=== PATIENT | female | born 1945 | race Caucasian/White ===

== ENCOUNTER 2020-02-12 10:22 | Emergency (ER) | payer MEDICARE, SELFPAY ==
[2020-02-12 10:35] VITALS: BP 150/68; PULSE 75; RESP 16; TEMP 36.1; O2SAT 98
--- NOTE | 2020-02-12 10:45 | ED.URI ---
HPI - URI/Sore Throat General Chief Complaint: Upper Respiratory Infection Stated Complaint: sore throat History of Present Illness HPI Narrative: Patient was put on Augmenting two weeks ago for a sore throat. Patient states that two days after her medication was over she started to have a sore throat again and she was wandering if she needed another dose. Patient has not had a fever, nausea, vomiting. Related Data Home Medications Medication Instructions Recorded Confirmed alcohol swabs See Rx Instructions .ROUTE .COMPLEX 11/19/19 ascorbic acid (vitamin C) 500 mg 500 mg PO DAILY 11/19/19 tablet aspirin 81 mg tablet,delayed 81 mg PO DAILY 11/19/19 release blood sugar diagnostic #10 each 11/19/19 calcium carbonate 600 mg calcium 600 mg PO DAILY 11/19/19 (1,500 mg) tablet cholecalciferol (vitamin D3) 125 5,000 unit PO DAILY 11/19/19 mcg (5,000 unit) tablet docusate sodium 100 mg capsule 100 mg PO .COMPLEX 11/19/19 docusate sodium 100 mg capsule 100 mg PO .COMPLEX PRN 11/19/19 glipizide 10 mg tablet, extended 10 mg PO BID 11/19/19 release 24 hr krill 300 mg-omega 3 90 mg-dha 24 1 cap PO DAILY 11/19/19 mg-epa 50 [id number]-bxajs capsule lancets #50 each 11/19/19 loratadine 10 mg tablet 10 mg PO DAILY 11/19/19 metoprolol succinate 25 mg 25 mg PO DAILY 11/19/19 tablet,extended release 24 hr nortriptyline 50 mg capsule 50 mg PO DAILY 11/19/19 oxybutynin chloride 5 mg tablet 5 mg PO DAILY 11/19/19 sertraline 100 mg tablet 100 mg PO DAILY 11/19/19 vitamin B12 1,000 mcg-folic acid tablet SUBLINGUAL DAILY tablet 11/19/19 400 mcg sublingual tablet insulin glargine 100 unit/mL See Rx Instructions SUB-Q .COMPLEX 12/21/19 subcutaneous solution ml Allergies Allergy/AdvReac Type Severity Reaction Status Date / Time No Known Allergies Allergy Unverified 07/10/19 07:18 Review of Systems Review of Systems: Narrative: CONSTITUTIONAL: Denies fever, chills, or sweats. EYES: Denies visual changes, redness, or discharge. ENT: Denies rhinorrhea, congestion, sore throat, or reports otalgia. CARDIOVASCULAR:Denies chest pain, palpitations, or edema. RESPIRATORY: Denies cough or dyspnea. GASTROINTESTINAL: Denies abdominal pain, nausea, vomiting, or diarrhea. GENITOURINARY: Denies dysuria or hematuria. SKIN:[Denies rash or itching. MUSCULOSKELETAL:Denies back pain, joint pain, or myalgia. NEUROLOGIC: Denies headache, numbness, or weakness. PSYCHIATRIC:Denies anxiety or depression PMFSH Social History Social History Smoking status: Former smoker Smoking end date: 10/28/92 Alcohol intake: never Comments At time as signature, I have reviewed and agree with nursing past medical, social, surgical and family history. Please see nursing chart for further information. There is no relevant family history pertinent to the presenting complaint. Exam Narrative: Exam Narrative: GENERAL:Well-appearing, well-nourished, and in no acute distress. HEAD:Normocephalic, atraumatic. EYES: PERRLA and EOMI. ENT: Nares clear, no rhinorrhea or epistaxis. Mucous membranes moist. Pharyngeal erythema NECK: Supple. CHEST: Clear to auscultation. No respiratory distress. HEART: Regular rate and rhythm. No murmur heard. Normal peripheral pulses. ABDOMEN: Soft, nontender, nondistended, normal active bowel sounds. EXTREMITIES: Normal range of motion. No edema. SKIN: Warm, dry, no rash. NEURO: No focal deficits. Alert and oriented x3. 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 Larson [facility] and informed them she is back with a sore throat , Informed them I would order antihistamines and send off a strep culture if it came back we would order antibiotics unless they thought she needed antibiotics for any reason . Vital Signs Vital signs: Vital Signs Temperature 96.9 F L 02/12/20 10:35 Pulse Rate 75 02/12/20 10:35 Respiratory Rate 16 02/11
== END 2020-02-12 11:11 | disposition home or self-care (01) ==
PROVIDERS: Emergency Provider Nurse Practitioner Family; PCP Emergency Medicine
DX: J02.9 Acute pharyngitis, unspecified (principal); Z87.891 Personal history of nicotine dependence; E11.9 Type 2 diabetes mellitus without complications; E78.00 Pure hypercholesterolemia, unspecified; Z79.82 Long term (current) use of aspirin; Z79.84 Long term (current) use of oral hypoglycemic drugs; Z79.4 Long term (current) use of insulin
CPT/HCPCS: 87081; 87880; 99213; G0463

== ENCOUNTER 2020-11-17 10:08 | Outpatient (CLI) | payer MEDICARE, SELFPAY ==
--- NOTE | ~2020-11-17 | US_ITS ---
EXAMINATION: US renal BI DATE: 11/17/2020 10:40 INDICATION: Stage III chronic kidney disease. TECHNIQUE: Multiple ultrasound grayscale images of the kidneys were obtained. COMPARISON: CT dated 12/11/2018 FINDINGS: The right kidney measures 9.7 x 3.9 x 4.6 cm. The left kidney measures 9.6 x 4.3 x 4.4 cm. The kidney s demonstrate normal echogenicity. There is no hydronephrosis in either kidney. No stones identified . The bladder is normal. IMPRESSION: 1. Normal kidneys without hydronephrosis. Reviewed, dictated and finalized at location A. 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
== END 2020-11-17 10:09 | disposition home or self-care (01) ==
PROVIDERS: PCP Emergency Medicine; Visit Provider Internal Medicine Nephrology
DX: N18.32 Chronic kidney disease, stage 3b (principal); E11.29 Type 2 diabetes mellitus with other diabetic kidney complication; I12.9 Hypertensive chronic kidney disease with stage 1 through stage 4 chronic kidney disease, or unspecified chronic kidney disease
CPT/HCPCS: 76775

== ENCOUNTER 2021-12-07 07:16 | Outpatient (CLI) | payer OTHER, SELFPAY ==
--- NOTE | ~2021-12-07 | MM_ITS ---
EXAMINATION: MM screening [facility] BI w arpita HISTORY: Screening mammogram TECHNIQUE: Craniocaudal and mediolateral oblique 3-D tomosynthesis images were obtained and synthetic 2-D images were generated. CAD analysis was submitted and interpreted. COMPARISON: 05/14/2017, 09/20/2010 BREAST PARENCHYMAL COMPOSITION: There are scattered areas of fibroglandular density. FINDINGS: Scattered benign-appearing calcifications are present. There is no evidence of suspicious m ass, calcification, or architectural distortion to suggest malignancy in either breast. There has bee n no suspicious interval change. IMPRESSION: 1. No mammographic evidence of malignancy. 2. Recommend routine screening mammography in one year. BI-RADS Category 2: Benign finding(s). Reviewed, dictated and finalized at location A. 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
== END 2021-12-07 07:17 | disposition home or self-care (01) ==
LOC: ANHIMG 07:19
PROVIDERS: PCP Emergency Medicine; Visit Provider Emergency Medicine
DX: Z12.31 Encounter for screening mammogram for malignant neoplasm of breast (principal)
CPT/HCPCS: 77063; 77067

== ENCOUNTER 2022-05-10 14:29 | Outpatient (CLI) | payer OTHER, SELFPAY ==
--- NOTE | ~2022-05-10 | CT_ITS ---
EXAMINATION: CT sinus wo con DATE: 05/10/2022 14:47 INDICATION: Chronic sinusitis. TECHNIQUE: Computed tomography (CT) of the paranasal sinuses was performed without intravenous contra st. The dose-length product was 278.92 mGy-cm. Automated exposure control and iterative reconstructio n technique were employed. COMPARISON: CT dated 12/02/2015 FINDINGS: Paranasal sinuses and mastoids are pneumatized. No depressed skull fractures. No significan t mucosal thickening. No air-fluid levels. No mucoperiosteal reaction. Ostiomeatal units are patent. Rightward nasal septal deviation. IMPRESSION: 1. No significant abnormality of the paranasal sinuses. Reviewed, dictated and finalized at location A.
== END 2022-05-10 14:30 | disposition home or self-care (01) ==
PROVIDERS: PCP Emergency Medicine; Visit Provider Emergency Medicine
DX: H91.90 Unspecified hearing loss, unspecified ear (principal); J32.9 Chronic sinusitis, unspecified; R09.81 Nasal congestion
CPT/HCPCS: 70486

== ENCOUNTER 2022-07-03 10:12 | Emergency (ER) | payer OTHER, SELFPAY ==
[2022-07-03] VITALS (7 sets, daily range): BP systolic 111–147; BP diastolic 45–68; PULSE 62–70; RESP 14–19; TEMP 36.5; O2SAT 99–100
[2022-07-03 10:54] LABS: Basophils Percent Auto 0.3 % (0.2-1.2); Eosinophils Absolute Auto 0.2 K/mm3 (0-0.3); Eosinophils Percent Auto 4.2 % (0-4.4); Hematocrit 38.5 % (37.0-47.0); Hemoglobin 12.7 g/dL (12.0-15.0); Immature Granulocyte Absolute 0.01 K/mm3 (0.00-0.031); Immature Granulocyte Percent A 0.3 % (0-0.5); Immature Platelet Fraction Pct 3.2 % (0.9-11.2); Lymphocytes Absolute Auto 0.88 K/mm3 (0.9-3.2); Lymphocytes Percent Auto 24.5 % (18.3-44.2); Mean Corpuscular Hemoglobin 30.7 pg (26-34); Mean Platelet Volume 10.4 fl (7.4-10.4); Monocytes Absolute Auto 0.4 K/mm3 (0.1-0.6); Monocytes Percent Auto 10.6 % (2.6-8.5); Neutrophils Absolute Auto 2.2 K/mm3 (1.3-6.7); Neutrophils Percent Auto 60.1 % (45.5-73.1); Platelet Count Result 85 k/mm3 (150-375); Red Blood Count 4.14 M/mm3 (4.2-5.4); Red Cell Distribution Width 14.6 % (11.5-14.5); White Blood Count 3.6 K/mm3 (4.5-10.0)
[2022-07-03 10:58] LABS: Alanine Aminotransferase 12 U/L (6-35); Alkaline Phosphatase 77 U/L (38-126); Anion Gap 17 mmol/L (8-16); Aspartate Amino Transferase 25 U/L (14-36); Bilirubin,Total 0.3 mg/dL (0.2-1.3); Blood Urea Nitrogen 23 mg/dL (7-17); Calcium 8.3 mg/dL (8.4-10.2); Carbon Dioxide 22 mmol/L (22-30); Chloride 104 mmol/L (98-107); Estimated CRCL calculation 27 ml/min; Estimated Glomerular Filt Rate 34; Glucose 174 mg/dL (65-110); Lipase 76 U/L (23-300); Potassium 3.5 mmol/L (3.4-5.0); Sodium 143 mmol/L (137-145)
--- NOTE | 2022-07-03 12:10 | PC.NURSE ---
Pt. not in room, unable to start IV, get urine or obtain orthostat VS
--- NOTE | 2022-07-03 12:49 | ED.GENADULT ---
HPI - General Adult General Chief complaint: Nausea/Vomiting/Diarrhea Stated complaint: dehydrated for 8 days?? Time Seen by Provider: 07/03/22 11:59 History of Present Illness HPI narrative: 36-year-old female presented the emergency department for evaluation of 8 days of diarrhea and her primary care physician was concerned that she may have some dehydration. Patient states that she has had some rolling abdomen but denies any pain. Patient denies any blood in her stool. Patient denies any associated nausea or vomiting. Patient states she has not had any fevers Related Data Home Medications Medication Instructions Recorded Confirmed alcohol swabs See Rx Instructions .Route .COMPLEX 11/19/19 11/28/21 ascorbic acid (vitamin C) 500 mg 500 mg PO DAILY 11/19/19 11/28/21 tablet (Vitamin C) calcium carbonate 600 mg calcium 600 mg PO DAILY 11/19/19 11/28/21 (1,500 mg) tablet (Calcium) krill 300 mg-omega 3 90 mg-dha 24 1 cap PO DAILY 11/19/19 11/28/21 mg-epa 50 [id number] capsule (MegaRed [place]-3 Krill Oil) metoprolol succinate 25 mg 25 mg PO DAILY 11/19/19 11/28/21 tablet,extended release 24 hr sertraline 100 mg tablet 100 mg PO DAILY 11/19/19 11/28/21 vitamin B12 1,000 mcg-folic acid tablet sublingual DAILY 11/19/19 11/28/21 400 mcg sublingual tablet aspirin 81 mg tablet,delayed 81 mg PO BID 07/06/20 11/28/21 release cholecalciferol (vitamin D3) 50 50 mcg PO DAILY 01/13/21 11/28/21 mcg (2,000 unit) capsule simvastatin 40 mg tablet 40 mg PO .COMPLEX 01/13/21 11/28/21 Allergies Allergy/AdvReac Type Severity Reaction Status Date / Time No Known Allergies Allergy Verified 06/19/22 09:44 Review of Systems Review of Systems: CONSTITUTIONAL: Denies fever, chills, or sweats. EYES: Denies visual changes, redness, or discharge. ENT: Denies rhinorrhea, congestion, sore throat, or otalgia. CARDIOVASCULAR: Denies chest pain, palpitations, or edema. RESPIRATORY: Denies cough or dyspnea. GASTROINTESTINAL: See HPI GENITOURINARY: Denies dysuria or hematuria. SKIN: Denies rash or itching. MUSCULOSKELETAL: Denies back pain, joint pain, or myalgia. NEUROLOGIC: Denies headache, numbness, or weakness. [facility] Past Medical History Medical History Acute UTI ASHD (arteriosclerotic heart disease) Bilateral carotid bruits Body mass index [BMI] 28.0-28.9, adult (12/18/16) Body mass index [BMI] 29.0-29.9, adult (06/18/16) Body mass index [BMI] 30.0-30.9, adult (12/15/15) Body mass index [BMI] 31.0-31.9, adult (01/06/18) Cellulitis of upper extremity Cerebellar dysfunction Closed fracture of ramus of right pubis with routine healing Closed fracture of right pubis Constipation COPD mixed type Diastolic dysfunction Dysarthria Dysuria Falls frequently Hematuria HTN (hypertension) Hx of falling Left leg weakness Multiple thyroid nodules Nausea Neuropathy Post menopausal problems Stenosis of left carotid artery Urinary incontinence in female UTI symptoms Family History Family History Sibling Family history of cardiovascular disease Social History Social History Social History: Patient does not drinks caffeine or exercise. Smoking status: Former smoker Tobacco type: cigarettes Second hand tobacco smoke exposure: Yes Smoking end date: 10/28/96 Alcohol intake: never Substance use: never Substance use type: does not use Gender identity (if verbalized by the patient): Female Exam Narrative: APPEARANCE: Well appearing, no pain, no distress, well-nourished. HEAD: normocephalic, atraumatic. EYES: PERRLA/EOMI, conjunctivae clear. NOSE: Normal no drainage NECK: Supple. No adenopathy, no masses. RESPIRATORY: Airway patent, respirations nonlabored. Clear to auscultation bilaterally, no rales, rhonchi, wheezing. CARDIOV
[2022-07-03] MEDS: SODIUM CHLORIDE 0.9% IV 1,000 ML 500 ML IV CONT (12:51)
[2022-07-03 14:09] LABS: Appearance Urine Slightly Cloudy (Clear); Bilirubin Urine Negative (Negative); Blood Urine Trace-lysed (Negative); Glucose Urine UA 2+ mg/dL (Negative); Ketones Urine Negative (Negative); Leukocyte Esterase Ur 1+ LEU/UL (Negative); Nitrate Urine Negative (Negative); Protein Urine Negative (Negative); Urobilinogen Urine 0.2 mg/dL (<2.0); pH Urine 5.5 (5.0-9.0)
[2022-07-03 14:15] LABS: Add Urine Microscopic? YES; Color Urine Light Yellow (Yellow)
[2022-07-03 14:26] LABS: Bacteria Urine Trace /hpf; Squamous Epithelial Cell Urine Few /hpf (Few)
[2022-07-03 16:07] LABS: Glucose Point of Care 54 mg/dl (65-105)
--- NOTE | 2022-07-03 16:13 | PC.NURSE ---
Pt asked MD if she could get her blood sugar checked. Sugar was 54. 8 ounces of orange juice given to pt.
[2022-07-03 16:39] LABS: Glucose Point of Care 103 mg/dl (65-105)
== END 2022-07-03 16:52 | disposition home or self-care (01) ==
PROVIDERS: Emergency Provider Emergency Medicine; PCP Emergency Medicine
DX: E86.0 Dehydration (principal); R19.7 Diarrhea, unspecified; I25.10 Atherosclerotic heart disease of native coronary artery without angina pectoris; I65.22 Occlusion and stenosis of left carotid artery; I10 Essential (primary) hypertension; J44.9 Chronic obstructive pulmonary disease, unspecified; E11.40 Type 2 diabetes mellitus with diabetic neuropathy, unspecified; Z87.891 Personal history of nicotine dependence; Z79.84 Long term (current) use of oral hypoglycemic drugs; Z79.4 Long term (current) use of insulin; Z79.82 Long term (current) use of aspirin
CPT/HCPCS: 36415; 80053; 81001; 82948; 83690; 85025; 85055; 96360; 96361; 99283; J7030

== ENCOUNTER 2022-07-29 14:38 | Emergency (ER) | payer OTHER, SELFPAY ==
--- NOTE | ~2022-07-29 | CT_ITS ---
EXAMINATION: CT brain wo con DATE: 07/29/2022 15:47 INDICATION: fall, hit head, on Plavix . TECHNIQUE: Computed tomography (CT) of the head was performed without intravenous contrast. The mA wa s adjusted according to patient size. Iterative reconstruction technique was employed. The dose-lengt h product was 605.33 mGy-cm. COMPARISON: None FINDINGS: No acute intracranial hemorrhage or extra-axial fluid collection. No hydrocephalus, mass, or herniation. No acute ischemic infarct. Unremarkable dural venous sinus attenuation. No acute osseous abnormality. Left frontal scalp contusion. Small inferior left mastoid effusion with osseous sclerosis, as can be seen with chronic/remote masto iditis. The remaining aerated spaces are clear. Mild atrophy and chronic white matter change. Bilateral basal ganglia calcification. Atherosclerotic intracranial calcification. IMPRESSION: No acute intracranial process. Reviewed, dictated and finalized at location K.
--- NOTE | ~2022-07-29 | CT_ITS ---
EXAMINATION: CT abdomen pelvis wo con DATE: 07/29/2022 16:10 INDICATION: hematuria after fall TECHNIQUE: Computed tomography (CT) of the abdomen and pelvis was performed without intravenous contr ast. Automated exposure control and iterative reconstruction technique were employed. The dose-length product was 946.71 mGy-cm. COMPARISON: 12/11/2018. FINDINGS: Lower thorax: Mitral annulus calcification. Coronary artery calcification. Possible coronary artery s tents. Bibasilar scar/atelectasis. Liver: Normal. Biliary/Gallbladder: Gallbladder hydrops, similar to the prior study. Gallbladder lumen filled by hyp erdense material as well as multiple gallstones, unchanged. No bile duct dilation. Pancreas: Atrophic. Spleen: Normal. Adrenals:No mass. Kidneys: No mass, stone, or hydronephrosis. GI tract: No small or large bowel dilation. Normal appendix. Mesentery/Peritoneum: No ascites, mass, or free air. Retroperitoneum: No mass. Atherosclerotic abdominal aortic and/or arterial calcifications. Pelvis: Large uterine fibroid, now measuring 11.2 cm. The remaining pelvic organs are within normal l imits. Soft Tissues: Soft tissues and body wall unremarkable. Bones: No acute osseous finding. Old compression fractures at T12 and L1. IMPRESSION: No acute abdominopelvic process detected. Evaluation for solid organ or vascular injury is limited wi thout the use of contrast. Reviewed, dictated and finalized at location K. IMPRESSION: No acute abdominopelvic process detected. Evaluation for solid organ or vascula r injury is limited without the use of contrast.
--- NOTE | ~2022-07-29 | XR_ITS ---
EXAM: XR shoulder LT min 2V, XR humerus LT DATE: 07/29/2022 15:26 HISTORY: left shoulder pain; fall today . COMPARISON: None available. FINDINGS: Decreased mineralization. Spiral fracture of the left humeral midshaft, with one half shaf t width posterior displacement, 30 degrees posterior angulation. Mild-moderate height loss in a lower thoracic vertebral body, possibly T12. Proximal humeral bone island. Mild degenerative change in the acromioclavicular and glenohumeral joints. No erosion or periosteal change. Soft tissues within norm al limits. IMPRESSION: Angulated and mildly displaced spiral fracture of the left humeral midshaft. Acute versus chronic lower thoracic vertebral body compression fracture, correlate with point tenderness. Reviewed, dictated and finalized at location K. IMPRESSION: Angulated and mildly displaced spiral fracture of the left humeral midshaft. Acute versus chronic lower thoracic vertebral body compression fractu re, correlate with point tenderness.
--- NOTE | ~2022-07-29 | XR_ITS ---
EXAM: XR knee RT 3V, XR knee LT 3V DATE: 07/29/2022 16:26 (accession [id number]), 07/29/2022 16:25 (accession [id number]) HISTORY: knee injury;fell today, abrasions ant bilat knees . COMPARISON: None available. FINDINGS: Decreased mineralization. No fracture or dislocation. No lytic or blastic lesion. 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 Bilateral quadriceps and plantar enthesopathy. No erosion or periosteal change. Bilateral prepatellar soft tissue swelling. Vascular calcifications. IMPRESSION: No acute osseous finding in the knees. Bilateral prepatellar soft tissue swelling/bursiti s. Reviewed, dictated and finalized at location K. IMPRESSION: No acute osseous finding in the knees. Bilateral prepatellar soft t issue swelling/bursitis.
[2022-07-29 14:53] VITALS: BP 155/71; PULSE 88; RESP 16; TEMP 36.9; O2SAT 98
--- NOTE | 2022-07-29 15:03 | ED.GENADULT ---
HPI - General Adult General Chief complaint: Fall Stated complaint: GLF with injuries Time Seen by Provider: 07/29/22 14:54 History of Present Illness HPI narrative: 76-year-old female presenting to the emergency department for evaluation after having a head injury. Patient reports she was at a football game attempting to walk to the bathroom when she fell and struck her head on a metal door. Patient denies loss of consciousness. Patient did receive a hematoma on her left forehead. Patient did injure her left arm as well. Patient reports pain in the left elbow and pain in the left shoulder. Patient does take Plavix. Related Data Home Medications Medication Instructions Recorded Confirmed alcohol swabs See Rx Instructions .Route .COMPLEX 11/19/19 11/28/21 ascorbic acid (vitamin C) 500 mg 500 mg PO DAILY 11/19/19 11/28/21 tablet (Vitamin C) calcium carbonate 600 mg calcium 600 mg PO DAILY 11/19/19 11/28/21 (1,500 mg) tablet (Calcium) krill 300 mg-omega 3 90 mg-dha 24 1 cap PO DAILY 11/19/19 11/28/21 mg-epa 50 [id number]-mzzzy capsule (MegaRed [place]-3 Krill Oil) metoprolol succinate 25 mg 25 mg PO DAILY 11/19/19 11/28/21 tablet,extended release 24 hr sertraline 100 mg tablet 100 mg PO DAILY 11/19/19 11/28/21 vitamin B12 1,000 mcg-folic acid tablet sublingual DAILY 11/19/19 11/28/21 400 mcg sublingual tablet aspirin 81 mg tablet,delayed 81 mg PO BID 07/06/20 11/28/21 release cholecalciferol (vitamin D3) 50 50 mcg PO DAILY 01/13/21 11/28/21 mcg (2,000 unit) capsule simvastatin 40 mg tablet 40 mg PO .COMPLEX 01/13/21 11/28/21 Allergies Allergy/AdvReac Type Severity Reaction Status Date / Time No Known Allergies Allergy Verified 07/29/22 15:16 Review of Systems Review of Systems: CONSTITUTIONAL: Denies fever, chills, or sweats. EYES: Denies visual changes, redness, or discharge. ENT: Denies rhinorrhea, congestion, sore throat, or otalgia. CARDIOVASCULAR: Denies chest pain, palpitations, or edema. RESPIRATORY: Denies cough or dyspnea. GASTROINTESTINAL: Denies abdominal pain, nausea, vomiting, or diarrhea. GENITOURINARY: Denies dysuria or hematuria. SKIN: Left forehead hematoma MUSCULOSKELETAL: See HPI. Denies any other pain or injury. NEUROLOGIC: Denies headache, numbness, or weakness. [facility] Past Medical History Medical History Acute UTI ASHD (arteriosclerotic heart disease) Bilateral carotid bruits Body mass index [BMI] 28.0-28.9, adult (12/18/16) Body mass index [BMI] 29.0-29.9, adult (06/18/16) Body mass index [BMI] 30.0-30.9, adult (12/15/15) Body mass index [BMI] 31.0-31.9, adult (01/06/18) Cellulitis of upper extremity Cerebellar dysfunction Closed fracture of ramus of right pubis with routine healing Closed fracture of right pubis Constipation COPD mixed type Diastolic dysfunction Dysarthria Dysuria Falls frequently Hematuria HTN (hypertension) Hx of falling Left leg weakness Multiple thyroid nodules Nausea Neuropathy Post menopausal problems Stenosis of left carotid artery Urinary incontinence in female UTI symptoms Family History Family History Sibling Family history of cardiovascular disease Social History Social History Social History: Patient does not drinks caffeine or exercise. Smoking status: Former smoker Tobacco type: cigarettes Second hand tobacco smoke exposure: Yes Smoking end date: 10/28/96 Alcohol intake: never Substance use: never Substance use type: does not use Gender identity (if verbalized by the patient): Female Exam Narrative: APPEARANCE: Well appearing, no pain, no distress, well-nourished. HEAD: normocephalic, hematoma with overlying abrasion on left forehead EYES: PERRLA/EOMI, conjunctivae clear. NOSE: Normal no drainage EARS:TMS clear with good
[2022-07-29] MEDS: MORPHINE SULFATE (*CRX) 2 MG/ML INJ IV PUSH (15:30)
[2022-07-29] MEDS: ONDANSETRON INJ 4 MG/2 ML VIAL IV PUSH (17:51)
[2022-07-29] MEDS: HYDROcodone/acetaminophen (*CRX) 5-325 MG TABLET 1 TAB PO (18:18)
== END 2022-07-29 18:58 | disposition home or self-care (01) ==
PROVIDERS: Emergency Provider Emergency Medicine; PCP Emergency Medicine
DX: S00.83XA Contusion of other part of head, initial encounter (principal); S42.342A Displaced spiral fracture of shaft of humerus, left arm, initial encounter for closed fracture; S80.02XA Contusion of left knee, initial encounter; S80.01XA Contusion of right knee, initial encounter; J44.9 Chronic obstructive pulmonary disease, unspecified; I25.10 Atherosclerotic heart disease of native coronary artery without angina pectoris; I10 Essential (primary) hypertension; I65.22 Occlusion and stenosis of left carotid artery; G62.9 Polyneuropathy, unspecified; Z87.440 Personal history of urinary (tract) infections; Z87.891 Personal history of nicotine dependence; Z79.82 Long term (current) use of aspirin; Z79.4 Long term (current) use of insulin; Z79.84 Long term (current) use of oral hypoglycemic drugs; W01.198A Fall on same level from slipping, tripping and stumbling with subsequent striking against other object, initial encounter
CPT/HCPCS: 70450; 73030; 73060; 73562; 74176; 96374; 96375; 99284; A9270; J2270; J2405

== ENCOUNTER 2022-09-05 17:44 | Emergency (ER) | payer OTHER, SELFPAY ==
--- NOTE | ~2022-09-05 | XR_ITS ---
EXAM: XR humerus LT, XR elbow LT min 3V DATE: 09/05/2022 20:04 HISTORY: known left humerus fx, fell today, left arm injury . COMPARISON: Humeral x-rays performed on the same date at 12:56 PM, as well as 08/15/2022 and 08/01/20 22. FINDINGS: Normal mineralization. Redemonstration of the spiral left humeral shaft fracture with post erior displacement and angulation and evidence of early healing change. No lytic or blastic lesion. J oint spaces and physes are maintained. No erosion or periosteal change. Soft tissues within normal li mits. IMPRESSION: Stable healing left humeral midshaft fracture. No acute osseous finding in the left elbow . Reviewed, dictated and finalized at location K. STIGATIONS CHIEF IMPRESSION: Stable healing left humeral midshaft fracture. No acute osseous fin ding in the left elbow.
[2022-09-05 19:07] VITALS: BP 124/43; PULSE 76; RESP 14; TEMP 36.8; O2SAT 98
--- NOTE | 2022-09-05 21:03 | ED.FALL ---
HPI - Fall General Chief Complaint: Fall Stated Complaint: fall with arm pain Time Seen by Provider: 09/05/22 20:58 History of Present Illness HPI Narrative: 76-year-old female with history of left arm fracture and July presenting to the emergency department for evaluation of left arm pain after having an injury today. Patient states that she was walking and tripped over an ottoman causing her to injure her left arm. Patient denies striking her head denies loss of consciousness. Patient does have a recent history of normal fracture in July. Related Data Home Medications Medication Instructions Recorded Confirmed alcohol swabs See Rx Instructions .Route .COMPLEX 11/19/19 09/05/22 ascorbic acid (vitamin C) 500 mg 500 mg PO DAILY 11/19/19 09/05/22 tablet (Vitamin C) calcium carbonate 600 mg calcium 600 mg PO DAILY 11/19/19 09/05/22 (1,500 mg) tablet (Calcium) krill 300 mg-omega 3 90 mg-dha 24 1 cap PO DAILY 11/19/19 09/05/22 mg-epa 50 ty-[id number]-[id number] capsule (MegaRed [place]-3 Krill Oil) metoprolol succinate 25 mg 25 mg PO DAILY 11/19/19 09/05/22 tablet,extended release 24 hr sertraline 100 mg tablet 100 mg PO DAILY 11/19/19 09/05/22 vitamin B12 1,000 mcg-folic acid tablet sublingual DAILY 11/19/19 09/05/22 400 mcg sublingual tablet aspirin 81 mg tablet,delayed 81 mg PO BID 07/06/20 09/05/22 release cholecalciferol (vitamin D3) 50 50 mcg PO DAILY 01/13/21 09/05/22 mcg (2,000 unit) capsule simvastatin 40 mg tablet 40 mg PO .COMPLEX 01/13/21 09/05/22 Allergies Allergy/AdvReac Type Severity Reaction Status Date / Time No Known Allergies Allergy Verified 09/05/22 13:27 Review of Systems Review of Systems: CONSTITUTIONAL: Denies fever, chills, or sweats. EYES: Denies visual changes, redness, or discharge. ENT: Denies rhinorrhea, congestion, sore throat, or otalgia. CARDIOVASCULAR: Denies chest pain, palpitations, or edema. RESPIRATORY: Denies cough or dyspnea. GASTROINTESTINAL: Denies abdominal pain, nausea, vomiting, or diarrhea. GENITOURINARY: Denies dysuria or hematuria. SKIN: Denies rash or itching. MUSCULOSKELETAL: Left arm pain, see HPI NEUROLOGIC: Denies headache, numbness, or weakness. [facility] Past Medical History Medical History Acute UTI ASHD (arteriosclerotic heart disease) Bilateral carotid bruits Body mass index [BMI] 28.0-28.9, adult (12/18/16) Body mass index [BMI] 29.0-29.9, adult (06/18/16) Body mass index [BMI] 30.0-30.9, adult (12/15/15) Body mass index [BMI] 31.0-31.9, adult (01/06/18) Cellulitis of upper extremity Cerebellar dysfunction Closed fracture of ramus of right pubis with routine healing Closed fracture of right pubis Constipation COPD mixed type Diastolic dysfunction Dysarthria Dysuria Falls frequently Hematuria HTN (hypertension) Hx of falling Left leg weakness Multiple thyroid nodules Nausea Neuropathy Post menopausal problems Stenosis of left carotid artery Urinary incontinence in female UTI symptoms Surgical History Surgical History Hx of pelvic surgery Hx of removal of neck cyst Family History Family History Sibling Family history of cardiovascular disease Other Arthritis Depression Diabetes mellitus Heart disease High cholesterol Hypertension Neuropathy Social History Social History Social History: Patient does not drinks caffeine or exercise. Smoking status: Former smoker Tobacco type: cigarettes Second hand tobacco smoke exposure: Yes Smoking end date: 10/28/96 Alcohol intake: never Substance use: never Substance use type: does not use Gender identity (if verbalized by the patient): Female Exam Narrative: APPEARANCE: Well appearing, no pain, no distress, well-nourished.
== END 2022-09-05 21:30 | disposition home or self-care (01) ==
PROVIDERS: Emergency Provider Emergency Medicine; PCP Emergency Medicine
DX: M79.602 Pain in left arm (principal); Z87.891 Personal history of nicotine dependence; J44.9 Chronic obstructive pulmonary disease, unspecified; I10 Essential (primary) hypertension
CPT/HCPCS: 73060; 73080; 99284

== ENCOUNTER 2022-10-22 11:16 | Emergency (ER) | payer OTHER, SELFPAY ==
[2022-10-22 12:44] VITALS: BP 169/61; PULSE 73; RESP 18; TEMP 36.4; O2SAT 100
--- NOTE | 2022-10-22 13:45 | ED.EPISTAXIS ---
HPI - Epistaxis General Chief complaint: Epistaxis Stated complaint: nose bleed Time Seen by Provider: 10/22/22 13:45 Source: patient Mode of arrival: ambulatory Limitations: no limitations History of Present Illness HPI Narrative: 76-year-old female presents with complaint of nosebleed since 9:00 a.m. this morning. Reports was bleeding from left nare. Patient is on blood thinner. Reports she has never had a nosebleed in the past. States that naris has felt very dry and has been applying Bactroban into nares. No other complaints today. All systems reviewed and negative except as noted above. Related Data Home Medications Medication Instructions Recorded Confirmed ascorbic acid (vitamin C) 500 mg 500 mg PO DAILY 11/19/19 10/22/22 tablet (Vitamin C) calcium carbonate 600 mg calcium 600 mg PO DAILY 11/19/19 10/22/22 (1,500 mg) tablet (Calcium) krill 300 mg-omega 3 90 mg-dha 24 1 cap PO DAILY 11/19/19 10/22/22 mg-epa 50 [id number]-lfxbq capsule (MegaRed [place]-3 Krill Oil) metoprolol succinate 25 mg 25 mg PO DAILY 11/19/19 10/22/22 tablet,extended release 24 hr sertraline 100 mg tablet 100 mg PO DAILY 11/19/19 10/22/22 vitamin B12 1,000 mcg-folic acid 1 tablet sublingual DAILY 11/19/19 10/22/22 400 mcg sublingual tablet aspirin 81 mg tablet,delayed 81 mg PO BID 07/06/20 10/22/22 release cholecalciferol (vitamin D3) 50 50 mcg PO DAILY 01/13/21 10/22/22 mcg (2,000 unit) capsule simvastatin 40 mg tablet 40 mg PO .COMPLEX 01/13/21 10/22/22 duloxetine 30 mg capsule,delayed 30 mg PO DAILY 10/22/22 10/22/22 release ticagrelor 90 mg tablet (Brilinta) 90 mg PO DAILY 10/22/22 10/22/22 Allergies Allergy/AdvReac Type Severity Reaction Status Date / Time No Known Allergies Allergy Verified 10/22/22 13:25 Review of Systems Review of Systems: CONSTITUTIONAL: Denies fever, chills, or sweats. EYES: Denies visual changes, redness, or discharge. ENT: Denies rhinorrhea, congestion, sore throat, or otalgia. Reports bleeding from left nare. CARDIOVASCULAR: Denies chest pain, palpitations, or edema. RESPIRATORY: Denies cough or dyspnea. GASTROINTESTINAL: Denies abdominal pain, nausea, vomiting, or diarrhea. GENITOURINARY: Denies dysuria or hematuria. SKIN: Denies rash or itching. MUSCULOSKELETAL: Denies back pain, joint pain, or myalgia. NEUROLOGIC: Denies headache, numbness, or weakness. PSYCHIATRIC: Denies anxiety or depression. All other systems reviewed are negative, except as documented in HPI. [facility] Past Medical History Medical History Acute UTI ASHD (arteriosclerotic heart disease) Bilateral carotid bruits Body mass index [BMI] 28.0-28.9, adult (12/18/16) Body mass index [BMI] 29.0-29.9, adult (06/18/16) Body mass index [BMI] 30.0-30.9, adult (12/15/15) Body mass index [BMI] 31.0-31.9, adult (01/06/18) Cellulitis of upper extremity Cerebellar dysfunction Closed fracture of ramus of right pubis with routine healing Closed fracture of right pubis Constipation COPD mixed type Diastolic dysfunction Dysarthria Dysuria Falls frequently Hematuria HTN (hypertension) Hx of falling Left leg weakness Multiple thyroid nodules Nausea Neuropathy Post menopausal problems Stenosis of left carotid artery Urinary incontinence in female UTI symptoms Surgical History Surgical History Hx of pelvic surgery Hx of removal of neck cyst Family History Family History Sibling Family history of cardiovascular disease Other Arthritis Depression Diabetes mellitus Heart disease High cholesterol Hypertension Neuropathy Social History Social History Social History: Patient does not drinks caffeine or exercise. Smoking status: Former smoker Tobacco type: cigarettes
== END 2022-10-22 14:00 | disposition home or self-care (01) ==
PROVIDERS: Emergency Provider Nurse Practitioner Family; PCP Emergency Medicine
DX: R04.0 Epistaxis (principal); I10 Essential (primary) hypertension; I25.10 Atherosclerotic heart disease of native coronary artery without angina pectoris; Z79.82 Long term (current) use of aspirin; Z87.891 Personal history of nicotine dependence
CPT/HCPCS: 99211; A9270; G0463

== ENCOUNTER 2022-12-19 06:30 | Day surgery (SDC) | payer MEDICARE, SELFPAY ==
[2022-12-17 14:03] VITALS: BMI 28.2
--- NOTE | 2022-12-18 10:42 | WPDANESEPPF ---
Anes - Initial Pre Proc Eval Procedure: Operation Date: 12/19/22 08:00 Proposed Procedures p Cataract Extraction with Lens Implant-Right Eye - Sean Odell MD Date/Time: 12/18/22 10:42 Surgeon: Sean Odell MD Pre Op Diagnosis: Cataract Right Eye Patient Data Age: 77 Gender: F Height: 1.57 m Weight: 70 kg Allergies Allergy/AdvReac Type Severity Reaction Status Date / Time No Known Allergies Allergy Verified 12/19/22 07:21 Home Medications Medication Instructions Recorded Confirmed Type ascorbic acid (vitamin C) 500 mg 500 mg PO DAILY 11/19/19 12/19/22 History tablet (Vitamin C) calcium carbonate 600 mg calcium 600 mg PO DAILY 11/19/19 12/19/22 History (1,500 mg) tablet (Calcium) krill 300 mg-omega 3 90 mg-dha 24 1 cap PO DAILY 11/19/19 12/19/22 History mg-epa 50 te-qnyeyed-ioyau capsule (MegaRed [place]-3 Krill Oil) metoprolol succinate 25 mg 25 mg PO DAILY 11/19/19 12/19/22 History tablet,extended release 24 hr sertraline 100 mg tablet 100 mg PO DAILY 11/19/19 12/19/22 History vitamin B12 1,000 mcg-folic acid 1 tablet sublingual DAILY 11/19/19 12/19/22 History 400 mcg sublingual tablet cholecalciferol (vitamin D3) 50 50 mcg PO DAILY 01/13/21 12/19/22 History mcg (2,000 unit) capsule lisinopril 10 mg tablet See Rx Instructions .Route 05/26/21 12/19/22 Rx .COMPLEX #90 tabs insulin glargine 100 unit/mL (3 See Rx Instructions .Route 11/28/21 12/19/22 Rx mL) subcutaneous pen (Lantus .COMPLEX #30 mL Solostar U-100 Insulin) pen needle, diabetic 31 gauge x #100 ea 11/28/21 12/19/22 Rx 3/16 (BD Ultra-Fine Mini Pen Needle) blood sugar diagnostic (Contour #200 ea 12/18/21 12/19/22 Rx Next Test Strips) blood-glucose meter (Contour Next #1 ea 12/18/21 12/19/22 Rx Meter) lancets (Microlet Lancet) #200 ea 12/18/21 12/19/22 Rx fluticasone propionate 50 1 spray intranasal DAILY #16 grams 06/11/22 12/19/22 Rx mcg/actuation nasal spray,suspension (Flonase Allergy Relief) duloxetine 30 mg capsule,delayed 30 mg PO DAILY 10/22/22 12/19/22 History release aspirin 81 mg tablet,delayed 81 mg PO DAILY 11/09/22 12/19/22 History release empagliflozin 10 mg tablet 10 mg PO DAILY #90 tabs 11/09/22 12/19/22 Rx glipizide 10 mg tablet, extended 10 mg PO BID #180 tabs 11/09/22 12/19/22 Rx release 24 hr rosuvastatin 20 mg tablet 20 mg PO DAILY 11/09/22 12/19/22 History torsemide 5 mg tablet 5 mg PO QAM #90 tabs 11/09/22 12/19/22 Rx Patient hx anesthesia problems: none Family hx anesthesia problems: none Results Review: All pre-operative results and documents have been reviewed as part of the pre-operative evaluation. [facility] Past Medical History Medical History (Updated 12/18/22 @ 10:43 by Asif Fletcher DO) Abscess Acute UTI Anxiety Arthritis ASHD (arteriosclerotic heart disease) Bilateral carotid bruits Body mass index [BMI] 28.0-28.9, adult (12/18/16) Body mass index [BMI] 29.0-29.9, adult (06/18/16) Body mass index [BMI] 30.0-30.9, adult (12/15/15) Body mass index [BMI] 31.0-31.9, adult (01/06/18) Cellulitis of upper extremity Cerebellar dysfunction Closed fracture of ramus of right pubis with routine healing Closed fracture of right pubis Constipation COPD mixed type Diabetes type 2, controlled Diastolic dysfunction Dysarthria Dysuria Dysuria Encounter to establish care Falls frequently Heart disease Hematuria HLD (hyperlipidemia) HTN (hypertension) HTN (hypertension) Hx of falling Kidney disease Left humeral fracture Left leg weakness Multiple thyroid nodules Nasal folliculitis Nausea Neuropathy HELLEN (obstructive sleep apnea) Post menopausal problems Sinusitis Sore throat Stenosis of left carotid artery Swollen tonsil Tinnitus of left ear Urinary incontinence in female UTI symptoms Vaginal yeast infection Surgical History Surgical History (Updated 12/18/22 @ 10:43 by Asif Fletcher DO) Histor
[2022-12-19 07:21] VITALS: BP 129/63; PULSE 73; RESP 16; TEMP 36.5; O2SAT 99
[2022-12-19] MEDS: OFLOXACIN 0.3% OPHTH SOLN 5 ML BTL 1 DROP AFFCTD EYE (07:29)
[2022-12-19] MEDS: TETRACAINE HCL 0.5% OPHTH SOLN 4 ML BTL 1 DROP AFFCTD EYE ×3 (07:30→07:40)
[2022-12-19 07:33] LABS: Glucose Point of Care 108 mg/dl (65-105)
[2022-12-19] MEDS: LIDOCAINE HCL 2% JELLY 5 ML TUBE 1 APPLIC AFFCTD EYE (08:00)
--- NOTE | 2022-12-19 08:00 | WPDHPUPDATE1 ---
History and Physical Update Update Date/Time: 12/19/22 08:00 History and Physical has been reviewed, including an updated exam of the patient. There are NO changes in the patient's condition. Risks, benefits, and alternatives have been discussed and questions answered. Patient agrees to proceed with procedure.
[2022-12-19] MEDS: HOME MEDICATION 1 EACH AFFCTD EYE (08:20)
[2022-12-19] MEDS: LIDOCAINE HCL 1% PF INJ 5 ML VIAL 1 ML INTRAOCULA (08:24)
[2022-12-19] MEDS: NEOMYCIN/POLYMYXIN/DEXAMETH OP OINT 3.5 GM TUBE 1 APPLIC AFFCTD EYE (08:50)
[2022-12-19] MEDS: acetaZOLAMIDE TAB 250 MG TABLET PO (08:57)
[2022-12-19 09:00] VITALS: BP 135/47; PULSE 65; RESP 17; O2SAT 100
--- NOTE | 2022-12-19 09:50 | WPDANESPN ---
Anes - Prog Note Post-Op Date/Time: 12/19/22 09:50 Cardiovascular status: normal Respiratory status: normal Airway patency: baseline Mental status: baseline Post-Op hydration status: normal Vital Signs: Last Vital Signs Temp 36.5 C 12/19/22 07:21 Pulse 65 12/19/22 09:00 Resp 17 12/19/22 09:00 BP 135/47 L 12/19/22 09:00 Pulse Ox 100 12/19/22 09:00 O2 Del Method Room Air 12/19/22 09:00 Pain Score (VAS): 0 12/19/22 07:30 POC Capillary Glucose 108 H Post-procedural complaints: none Patient Feedback: Patient satisfied with anesthetic care. Other Findings: Patient vital signs back to baseline. Patient denies nausea and vomiting. Patient's pain under control. Patient OK for discharge.
--- NOTE | 2022-12-19 12:26 | W.PM.PROC2 ---
Procedure Note - Detailed Date of Procedure 12/19/22 Pre-op Diagnosis 1) Cataract Right Eye 2) Miotic Pupillary Cyst Right Eye Post-op Diagnosis Same Procedure Performed Complex Cataract Extraction (by Phacoemulsification) and lntraocular Lens Implant Surgeon Sean Odell MD Anesthesia MAC Description of Procedure The eye was anesthetized with topical 0.75% bupivacaine. After intravenous sedation and placement of monitors, the patient was prepped and draped in the usual sterile manner. A lid speculum was placed. A paracentesis was made, and preservative free 1% lidocaine was instilled in the anterior chamber. The anterior chamber was then filled with Viscoat viscoelastic and a Malyugin ring wasn placed. A zoya keratome was used to create the wound. Continuous tear anterior capsulotomy was performed. The lens was hydro dissected before being removed with phacoemulsification. The remaining lenticular cortex was removed with aspiration. The capsular bag was polished and filled with viscoelastic material. An intraocular lens was chosen, inspected, irrigated and placed within the capsular bag where it was seen to be centered and stable. The ring was removed and viscoelastic material was aspirated. The wound was closed and found to be watertight. Ciloxan drops were placed in the eye. The speculum was removed. A Cooper shield was applied. The patient tolerated the procedure well and left the operating room in satisfactory condition. Implants See chart Complications None Condition Stable Disposition Same day
== END 2022-12-19 09:21 | disposition home or self-care (01) ==
PROVIDERS: PCP Family Medicine; Visit Provider Student in an Organized Health Care Education/Training Program
PROC: (CPT 66983; principal; 2022-12-19 08:00)
DX: H25.11 Age-related nuclear cataract, right eye (principal)
CPT/HCPCS: 66982

== ENCOUNTER 2023-01-23 07:21 | Day surgery (SDC) | payer MEDICARE, SELFPAY ==
[2023-01-18 11:25] VITALS: BMI 28.2
[2023-01-23 07:45] VITALS: BP 141/56; PULSE 64; RESP 20; TEMP 36.3; O2SAT 99
[2023-01-23 08:03] LABS: Glucose Point of Care 98 mg/dl (65-105)
--- NOTE | 2023-01-23 08:06 | WPDHPUPDATE1 ---
History and Physical Update Update Date/Time: 01/23/23 08:06 History and Physical has been reviewed, including an updated exam of the patient. There are NO changes in the patient's condition. Risks, benefits, and alternatives have been discussed and questions answered. Patient agrees to proceed with procedure.
[2023-01-23] MEDS: TETRACAINE HCL 0.5% OPHTH SOLN 4 ML BTL 1 DROP AFFCTD EYE ×3 (08:13→08:23)
[2023-01-23] MEDS: OFLOXACIN 0.3% OPHTH SOLN 5 ML BTL 1 DROP AFFCTD EYE (08:13)
--- NOTE | 2023-01-23 08:20 | WPDANESEPPF ---
Anes - Initial Pre Proc Eval Procedure: Operation Date: 01/23/23 08:30 Proposed Procedures p Cataract Extraction with Lens Implant-Left Eye - Sean Odell MD Date/Time: 01/23/23 08:20 Surgeon: Sean Odell MD Pre Op Diagnosis: Age Related Nuclear Cataract Left Eye Patient Data Age: 77 Gender: F Height: 1.57 m Weight: 70 kg Allergies Allergy/AdvReac Type Severity Reaction Status Date / Time No Known Allergies Allergy Verified 01/23/23 08:22 Home Medications Medication Instructions Recorded Confirmed Type ascorbic acid (vitamin C) 500 mg 500 mg PO DAILY 11/19/19 01/18/23 History tablet (Vitamin C) calcium carbonate 600 mg calcium 600 mg PO DAILY 11/19/19 01/18/23 History (1,500 mg) tablet (Calcium) krill 300 mg-omega 3 90 mg-dha 24 1 cap PO DAILY 11/19/19 01/18/23 History mg-epa 50 xi-lglvnyb-cieim capsule (MegaRed [place]-3 Krill Oil) metoprolol succinate 25 mg 25 mg PO DAILY 11/19/19 01/18/23 History tablet,extended release 24 hr sertraline 100 mg tablet 150 mg PO DAILY 11/19/19 01/18/23 History vitamin B12 1,000 mcg-folic acid 1 tablet sublingual DAILY 11/19/19 01/18/23 History 400 mcg sublingual tablet cholecalciferol (vitamin D3) 50 50 mcg PO DAILY 01/13/21 01/18/23 History mcg (2,000 unit) capsule lisinopril 10 mg tablet See Rx Instructions .Route 05/26/21 01/18/23 Rx .COMPLEX #90 tabs insulin glargine 100 unit/mL (3 See Rx Instructions .Route 11/28/21 01/18/23 Rx mL) subcutaneous pen (Lantus .COMPLEX #30 mL Solostar U-100 Insulin) pen needle, diabetic 31 gauge x #100 ea 11/28/21 12/19/22 Rx 3/16 (BD Ultra-Fine Mini Pen Needle) blood sugar diagnostic (Contour #200 ea 12/18/21 12/19/22 Rx Next Test Strips) blood-glucose meter (Contour Next #1 ea 12/18/21 12/19/22 Rx Meter) lancets (Microlet Lancet) #200 ea 12/18/21 12/19/22 Rx fluticasone propionate 50 1 spray intranasal DAILY #16 grams 06/11/22 01/18/23 Rx mcg/actuation nasal spray,suspension (Flonase Allergy Relief) duloxetine 30 mg capsule,delayed 30 mg PO DAILY 10/22/22 01/18/23 History release aspirin 81 mg tablet,delayed 81 mg PO DAILY 11/09/22 01/18/23 History release empagliflozin 10 mg tablet 10 mg PO DAILY #90 tabs 11/09/22 01/18/23 Rx glipizide 10 mg tablet, extended 10 mg PO BID #180 tabs 11/09/22 01/18/23 Rx release 24 hr rosuvastatin 20 mg tablet 20 mg PO DAILY 11/09/22 01/18/23 History torsemide 5 mg tablet 5 mg PO QAM #90 tabs 11/09/22 01/18/23 Rx Laboratory Tests 01/23/23 08:00 POC Capillary Glucose 98 mg/dl mg/dl (65-105) Patient hx anesthesia problems: none Family hx anesthesia problems: none Results Review: All pre-operative results and documents have been reviewed as part of the pre-operative evaluation. [facility] Past Medical History Medical History (Updated 12/18/22 @ 10:43 by Asif Fletcher DO) Abscess Acute UTI Anxiety Arthritis ASHD (arteriosclerotic heart disease) Bilateral carotid bruits Body mass index [BMI] 28.0-28.9, adult (12/18/16) Body mass index [BMI] 29.0-29.9, adult (06/18/16) Body mass index [BMI] 30.0-30.9, adult (12/15/15) Body mass index [BMI] 31.0-31.9, adult (01/06/18) Cellulitis of upper extremity Cerebellar dysfunction Closed fracture of ramus of right pubis with routine healing Closed fracture of right pubis Constipation COPD mixed type Diabetes type 2, controlled Diastolic dysfunction Dysarthria Dysuria Dysuria Encounter to establish care Falls frequently Heart disease Hematuria HLD (hyperlipidemia) HTN (hypertension) HTN (hypertension) Hx of falling Kidney disease Left humeral fracture Left leg weakness Multiple thyroid nodules Nasal folliculitis Nausea Neuropathy HELLEN (obstructive sleep apnea) Post menopausal problems Sinusitis Sore throat Stenosis of left carotid artery Swollen tonsil Tinnitus of left ear Urinary incontinence in female UTI symptoms Vaginal yeast
[2023-01-23] MEDS: LIDOCAINE HCL 2% JELLY 5 ML TUBE 1 APPLIC AFFCTD EYE (09:00)
[2023-01-23] MEDS: HOME MEDICATION 1 EACH AFFCTD EYE (09:09)
[2023-01-23] MEDS: LIDOCAINE HCL 1% PF INJ 5 ML VIAL 1 ML INTRAOCULA (09:09)
[2023-01-23 09:25] VITALS: BP 129/51; PULSE 63; RESP 16; O2SAT 96
[2023-01-23] MEDS: acetaZOLAMIDE TAB 250 MG TABLET PO (09:26)
--- NOTE | 2023-01-23 11:42 | W.PM.PROC2 ---
Procedure Note - Detailed Date of Procedure 01/23/23 Pre-op Diagnosis 1) Age Related Nuclear Cataract Left Eye 2) Miotic pupillary cyst Post-op Diagnosis Same Procedure Performed Complex Cataract Extraction (by Phacoemulsification) and lntraocular Lens Implant Surgeon Sean Odell MD Anesthesia MAC Description of Procedure The eye was anesthetized with topical 0.75% bupivacaine. After intravenous sedation and placement of monitors, the patient was prepped and draped in the usual sterile manner. A lid speculum was placed. A paracentesis was made, and preservative free 1% lidocaine was instilled in the anterior chamber. The anterior chamber was then filled with Viscoat viscoelastic and a Malyugin ring was placed. A zoya keratome was used to create the wound. Continuous tear anterior capsulotomy was performed. The lens was hydro dissected before being removed with phacoemulsification. The remaining lenticular cortex was removed with aspiration. The capsular bag was polished and filled with viscoelastic material. An intraocular lens was chosen, inspected, irrigated and placed within the capsular bag where it was seen to be centered and stable. The Malyuign rinf was removed and viscoelastic material was aspirated. The wound was closed and found to be watertight. Ciloxan drops were placed in the eye. The speculum was removed. A Cooper shield was applied. The patient tolerated the procedure well and left the operating room in satisfactory condition. Implants See chart Complications None Condition Stable Disposition Same day
--- NOTE | 2023-01-23 11:51 | WPDANESPN ---
Anes - Prog Note Post-Op Date/Time: 01/23/23 11:51 Cardiovascular status: normal Respiratory status: normal Airway patency: baseline Mental status: baseline Post-Op hydration status: normal Vital Signs: Last Vital Signs Temp 36.3 C L 01/23/23 07:45 Pulse 63 01/23/23 09:25 Resp 16 01/23/23 09:25 BP 129/51 L 01/23/23 09:25 Pulse Ox 96 01/23/23 09:25 O2 Del Method Room Air 01/23/23 09:25 Pain Score (VAS): 0 01/23/23 08:00 POC Capillary Glucose 98 Post-procedural complaints: none Patient Feedback: Patient satisfied with anesthetic care. Other Findings: Patient vital signs back to baseline. Patient denies nausea and vomiting. Patient's pain under control. Patient OK for discharge.
== END 2023-01-23 09:35 | disposition home or self-care (01) ==
PROVIDERS: PCP Family Medicine; Visit Provider Student in an Organized Health Care Education/Training Program
PROC: (CPT 66983; principal; 2023-01-23 08:30)
DX: H25.12 Age-related nuclear cataract, left eye (principal)
CPT/HCPCS: 66982

== ENCOUNTER 2023-07-18 12:22 | Outpatient (CLI) | payer MEDICARE, SELFPAY ==
--- NOTE | 2023-08-06 15:26 | WPDSLEEPSTUD ---
Sleep Study Date of Study: 07/18/23 Ordering Provider: Georgia Jeff NP Interpreting Physician: Sapphire Ochoa DO Sleep Study Type: Polysomnogram Height: 1.57 m Weight: 75.296 kg Body Mass Index: 30.3 Neck Circumference (inches): 16 [place]: 8 Reason for Sleep Study Previously diagnosed with HELLEN. Has not been on PAP for past 5 years. Daytime hypersomnia and snoring. Sleep History The patient is a 77-year-old female that had a sleep study ordered by her primary care to requalify for CPAP. The patient rarely awakens from sleep short of breath. She rarely awakens at night with heartburn, belching or cough. She constantly snores and is constantly loud enough that others complain. She constantly has trouble sleeping when she has a cold. She rarely wakes up gasping for air throughout the night. She occasionally sweats excessively at night. She occasionally has heart palpitations or irregular heartbeats during the night. She frequently falls asleep during the day and occasionally falls asleep while driving. She denies sleep paralysis and cataplexy. She denies having trouble at school or work due to sleepiness. She occasionally experiences vivid dreamlike scenes upon awakening or falling asleep. She occasionally feels afraid of going to sleep. She occasionally has nightmares. She occasionally remembers her dreams. He frequently has thoughts racing through her mind. She occasionally feels sad or depressed. She frequently has anxiety. She occasionally has muscular tension. She occasionally notices parts of her body jerk. She occasionally kicks during the night. She occasionally has crawling and aching feelings in her legs and frequently has leg pain during the night. She occasionally grinds her teeth during sleep but never awakens with morning jaw pain. She is rarely bothered by pain during the day and rarely awakened by pain during the night. She rarely wakes up feeling stiff in the morning. She rarely wakes up with sore or achy muscles. She rarely wakes up with pain in the neck, spine or other joints. She goes to bed at 10:00 p.m. on weekdays and at 9:00 p.m. on the weekends. It takes her 1-3 hours to fall asleep. She wakes up 3 times throughout the night to urinate and can take 1-2 hours to fall back asleep. She wakes up at 7:00 a.m. on both weekdays and weekends. He typically gets 4-9 hours of sleep per night. She will stay in bed for up to 2 hours after waking up in the morning. She currently lives with her brother and [id number]. She will consume caffeinated beverages within 2 hours of bedtime. She denies engaging in physical exercise before bedtime. She will read and watch television before falling asleep. She will take naps in the afternoon or the evening but they are not refreshing. She will consume caffeinated beverages throughout the day. She denies tobacco, alcohol and recreational drug use. [facility] Past Medical History Medical History (Updated 08/06/23 @ 15:58 by Sapphire Ochoa DO) Abscess Acute UTI Anxiety Arthritis ASHD (arteriosclerotic heart disease) Bilateral carotid bruits Body mass index [BMI] 28.0-28.9, adult (12/18/16) Body mass index [BMI] 29.0-29.9, adult (06/18/16) Body mass index [BMI] 30.0-30.9, adult (12/15/15) Body mass index [BMI] 31.0-31.9, adult (01/06/18) Cellulitis of upper extremity Cerebellar dysfunction Closed fracture of ramus of right pubis with routine healing Closed fracture of right pubis Constipation COPD mixed type Diabetes type 2, controlled Diastolic dysfunction Dysarthria Dysuria Dysuria Encounter to establish care Falls frequently Heart disease Heart murmur Hematuria HLD (hyperlipidemia) HTN (hypertension) HTN (hypertension) Hx of falling Insomnia Kidney disease Left humeral fracture Left leg weakness Multiple thyroid nodules Nasal folliculitis Nausea Neuropathy HELLEN (obstructive sleep apnea) Post menopausal problems Sinusitis Skin lesion Sore
[2023-08-06 15:46] VITALS: BMI 30.3
--- NOTE | 2023-10-31 13:56 | SLEEP ---
pt to f/holly rosenberg
== END 2023-07-19 06:47 | disposition home or self-care (01) ==
PROVIDERS: PCP Family Medicine; Visit Provider Nurse Practitioner Family
DX: G47.33 Obstructive sleep apnea (adult) (pediatric) (principal); Z72.821 Inadequate sleep hygiene
CPT/HCPCS: 95810

== ENCOUNTER 2023-12-18 14:07 | Outpatient (CLI) | payer MEDICARE, SELFPAY ==
--- NOTE | 2024-01-13 20:14 | WPDSLEEPSTUD ---
Sleep Study Date of Study: 12/18/23 Ordering Provider: Sapphire Ochoa DO Interpreting Physician: Racquel Lamar MD Sleep Study Type: CPAP Titration Height: 1.57 m Weight: 74.843 kg Body Mass Index: 30.2 Neck Circumference (inches): 16 [place]: 8 Reason for Sleep Study History of obstructive sleep apnea in 2001, * 07/18/2023 PSG with AHI of 21.3, desaturation down to 85%; central apnea index of 4.8 due to 15 central apneas.? She returns to the sleep lab for CPAP titration. Sleep History Rosalina Kenney is a 78-year-old female with known obstructive sleep apnea [id number], has not worn CPAP in a while. She had a basci sleep study in June 2023 showing moderate HELLEN, was not a candidate for APAP due to elevated central apneas. She is here for CPAP titration. The patient rarely awakens from sleep short of breath.? She rarely awakens at night with heartburn, belching or cough.? She constantly snores and is constantly loud enough that others complain.? She constantly has trouble sleeping when she has a cold.? She rarely wakes up gasping for air throughout the night.? She occasionally sweats excessively at night.? She occasionally has heart palpitations or irregular heartbeats during the night.? She frequently falls asleep during the day and occasionally falls asleep while driving.? She denies sleep paralysis and cataplexy.? She denies having trouble at school or work due to sleepiness.? She occasionally experiences vivid dreamlike scenes upon awakening or falling asleep.? She occasionally feels afraid of going to sleep.? She occasionally has nightmares.? She occasionally remembers her dreams.? He frequently has thoughts racing through her mind.? She occasionally feels sad or depressed.? She frequently has anxiety.??She occasionally has muscular tension.? She occasionally notices parts of her body jerk.? She occasionally kicks during the night.? She occasionally has crawling and aching feelings in her legs and frequently has leg pain during the night.?She occasionally grinds her teeth during sleep but never awakens with morning jaw pain.? She is rarely bothered by pain during the day and rarely awakened by pain during the night.? She rarely wakes up feeling stiff in the morning.? She rarely wakes up with sore or achy muscles.? She rarely wakes up with pain in the neck, spine or other joints.? She goes to bed at 10:00 p.m. on weekdays and at 9:00 p.m. on the weekends.? It takes her 1-3 hours to fall asleep.? She wakes up 3 times throughout the night to urinate and can take 1-2 hours to fall back asleep.? She wakes up at 7:00 a.m. on both weekdays and weekends.? He typically gets 4-9 hours of sleep per night.? She will stay in bed for up to 2 hours after waking up in the morning.? She currently lives with her brother and [id number].? She will consume caffeinated beverages within 2 hours of bedtime.? She denies engaging in physical exercise before bedtime.? She will read and watch television before falling asleep.? She will take naps in the afternoon or the evening but they are not refreshing. She will consume caffeinated beverages throughout the day.? She denies tobacco, alcohol and recreational drug use. [facility] Past Medical History Medical History Abscess Acute UTI Anemia Anxiety Arthritis ASHD (arteriosclerotic heart disease) Bilateral carotid bruits Body mass index [BMI] 28.0-28.9, adult (12/18/16) Body mass index [BMI] 29.0-29.9, adult (06/18/16) Body mass index [BMI] 30.0-30.9, adult (12/15/15) Body mass index [BMI] 31.0-31.9, adult (01/06/18) Cellulitis of upper extremity Central sleep apnea (~07/18/23) central sleep apnea index of 4.8 on 07/18/2023. Cerebellar dysfunction Closed fracture of ramus of right pubis with routine healing Closed fracture of right pubis Constipation COPD mixed type Diabetes type 2, controlled Diastolic dysfunction Dysarthria Dysuria Dysuria Encounter to carloz
[2024-01-13 20:15] VITALS: BMI 30.2
== END 2023-12-19 08:30 | disposition home or self-care (01) ==
LOC: ANHCSM 14:07
PROVIDERS: PCP Family Medicine; Visit Provider Family Medicine
DX: G47.33 Obstructive sleep apnea (adult) (pediatric) (principal); F39 Unspecified mood [affective] disorder; I25.9 Chronic ischemic heart disease, unspecified
CPT/HCPCS: 95811

== ENCOUNTER 2024-03-31 10:21 | Inpatient (IN) | payer MEDICARE, SELFPAY ==
[2024-03-31] VITALS (7 sets, daily range): BP systolic 137–155; BP diastolic 50–67; PULSE 60–93; RESP 14–23; TEMP 36.6–37.3; O2SAT 94–100; BMI 31.3
--- NOTE | ~2024-03-31 | XR_ITS ---
EXAMINATION: XR chest 1V DATE: 03/31/2024 11:11 INDICATION: Weakness. Fall. TECHNIQUE: A single frontal view of the chest was obtained. COMPARISON: CT abdomen and pelvis 07/29/2022 FINDINGS: There is no pneumonia, pleural effusion, or pneumothorax. The heart size is normal. IMPRESSION: 1. No acute cardiopulmonary disease. Reviewed, dictated and finalized at location A.
--- NOTE | ~2024-03-31 | XR_ITS ---
EXAMINATION: XR hip RT 2V w AP pelvis DATE: 03/31/2024 11:11 INDICATION: Right hip pain. Fall. TECHNIQUE: An anteroposterior view of the pelvis and 2 views of right hip were obtained. COMPARISON: Pelvis radiograph 12/12/2017 FINDINGS: There is an intertrochanteric fracture of proximal right femur in near-anatomic alignment o n the provided views. There is mild osteoarthritis of the hips. There is mild lumbar spondylosis. IMPRESSION: 1. Intertrochanteric fracture of proximal right femur. 2. Mild osteoarthritis of the hips. Reviewed, dictated and finalized at location A.
--- NOTE | ~2024-03-31 | US_ITS ---
EXAMINATION: US abdomen complete DATE: 04/03/2024 08:57 INDICATION: Thrombocytopenia. TECHNIQUE: Multiple grayscale and Doppler ultrasound images of the abdomen were obtained. COMPARISON: CT abdomen and pelvis 07/28/2022 FINDINGS: The visualized portions of the head, body, and tail of the pancreas are normal. The liver i s normal without focal lesion. There is normal flow in main portal vein. The gallbladder is distended and contains gallstones. No gallbladder wall thickening or sonographic Francois sign. The common duct is normal and measures 3 mm. The spleen is normal in size. The kidneys are normal in size. Abdominal aorta is normal in caliber. Inferior vena cava is normal. IMPRESSION: 1. No etiology for thrombocytopenia. 2. Cholelithiasis. Gallbladder distention is again seen and may be secondary to fasting. Reviewed, dictated and finalized at location A.
--- NOTE | ~2024-03-31 | XR_ITS ---
XR surgery orthopedic Indication: Right intertrochanteric nail placement TECHNIQUE: Fluoroscopy used during Right intertrochanteric nail placement performed by [Brendan Mora MD] on 04/01/2024. 214 seconds of fluoroscopy with 6 fluoroscopic images captured. FINDINGS: Correlate with procedure note. IMPRESSION: Fluoroscopy used during Right intertrochanteric nail placement. Reviewed, dictated and finalized at location B.
--- NOTE | ~2024-03-31 | CT_ITS ---
EXAMINATION: CT cervical spine wo con DATE: 03/31/2024 11:18 INDICATION: Neck injury. Fall. TECHNIQUE: Computed tomography (CT) of the cervical spine was performed without intravenous contrast. Automated exposure control and iterative reconstruction technique were employed. The dose-length pro duct was 385.70 mGy-cm. COMPARISON: None FINDINGS: There is 11 degrees dextroscoliosis of cervical spine. Vertebral body heights are normal. T here is severely decreased disc height at C5-C6. The following disc levels are specifically discussed : C2-C3: There is no uncovertebral joint osteoarthritis. There is mild bilateral facet joint osteoarthr itis. There is no neural foraminal stenosis. There is no central canal stenosis. C3-C4: There is no uncovertebral joint osteoarthritis. There is mild bilateral facet joint osteoarthr itis. There is no neural foraminal stenosis. There is no central canal stenosis. C4-C5: There is no uncovertebral joint osteoarthritis. There is no facet joint osteoarthritis. There is no neural foraminal stenosis. There is no central canal stenosis. C5-C6: There is severe bilateral uncovertebral joint osteoarthritis. There is moderate bilateral face t joint osteoarthritis. There is mild bilateral neural foraminal stenosis. There is mild central josselyn l stenosis. C6-C7: There is no uncovertebral joint osteoarthritis. There is mild bilateral facet joint osteoarthr itis. There is no neural foraminal stenosis. There is no central canal stenosis. C7-T1: There is no uncovertebral joint osteoarthritis. There is mild bilateral facet joint osteoarthr itis. There is no neural foraminal stenosis. There is no central canal stenosis. IMPRESSION: 1. No fracture. 2. Severe spondylosis at C5-C6 and mild spondylosis at other levels. Reviewed, dictated and finalized at location A.
--- NOTE | ~2024-03-31 | CT_ITS ---
EXAMINATION: CT brain wo con DATE: 03/31/2024 11:19 INDICATION: Confusion. Fall. TECHNIQUE: Computed tomography (CT) of the head was performed without intravenous contrast. The mA wa s adjusted according to patient size. Iterative reconstruction technique was employed. The dose-lengt h product was 605.33 mGy-cm. COMPARISON: Head CT 07/29/2022 FINDINGS: There are scattered areas of low attenuation in the cerebral white matter. There is no intr acranial hemorrhage, acute infarction, or abnormal intracranial mass lesion. The ventricles are jay l in size. There are likely changes of ocular lens replacement surgeries. There is mild mucosal thick ening in the paranasal sinuses. There is a small left mastoid effusion. IMPRESSION: 1. Stable mild nonspecific cerebral white matter disease, which likely represents chronic small vesse l ischemic disease. Reviewed, dictated and finalized at location A. IMPRESSION: 1. Stable mild nonspecific cerebral white matter disease, which likely represen ts chronic small vessel ischemic disease.
--- NOTE | 2024-03-31 10:37 | ECG_ITS ---
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 Measurements Intervals Richardson Rate: 88 P: 50 OK: 155 QRS: 14 QRSD: 98 T: 30 QT: 386 QTc: 467 Interpretive Statements SINUS RHYTHM No previous ECG available for comparison Electronically Signed On 03-31-2024 14:25:58 CDT by Glendy Sutton M.D.
[2024-03-31 11:01] LABS: Basophils Percent Auto 0.1 % (0.2-1.2); Hematocrit 38.9 % (37.0-47.0); Hemoglobin 12.7 g/dL (12.0-15.0); Immature Granulocyte Absolute 0.03 K/mm3 (0.00-0.031); Immature Granulocyte Percent A 0.4 % (0-0.5); Immature Platelet Fraction Pct 3.8 % (0.9-11.2); Lymphocytes Absolute Auto 0.54 K/mm3 (0.9-3.2); Lymphocytes Percent Auto 7.5 % (18.3-44.2); Mean Corpuscular HGB Conc 32.6 g/dl (32-36); Mean Corpuscular Hemoglobin 30.1 pg (26-34); Mean Corpuscular Volume 92.2 fl (80-100); Mean Platelet Volume 10.9 fl (7.4-10.4); Monocytes Absolute Auto 0.5 K/mm3 (0.1-0.6); Monocytes Percent Auto 7.2 % (2.6-8.5); Neutrophils Absolute Auto 6.1 K/mm3 (1.3-6.7); Neutrophils Percent Auto 84.8 % (45.5-73.1); Platelet Count Result 86 k/mm3 (150-375); Red Blood Count 4.22 M/mm3 (4.2-5.4); Red Cell Distribution Width 13.8 % (11.5-14.5); White Blood Count 7.2 K/mm3 (4.5-10.0)
[2024-03-31 11:08] LABS: Creatine Kinase 214 U/L (30-135)
[2024-03-31 11:09] LABS: Alanine Aminotransferase 17 U/L (6-35); Albumin Level 4.2 g/dL (3.5-5.1); Alkaline Phosphatase 84 U/L (38-126); Anion Gap 12 mmol/L (4-12); Aspartate Amino Transferase 30 U/L (14-36); Bilirubin,Total 0.8 mg/dL (0.2-1.3); Blood Urea Nitrogen 32 mg/dL (7-17); Calcium 9.2 mg/dL (8.4-10.2); Carbon Dioxide 22 mmol/L (22-30); Chloride 105 mmol/L (98-107); Estimated CRCL calculation 25 ml/min; Estimated Glomerular Filt Rate 29; Glucose 345 mg/dL (65-110); Potassium 4.4 mmol/L (3.4-5.0); Sodium 139 mmol/L (137-145)
[2024-03-31 11:52] LABS: Appearance Urine Clear (Clear); Bacteria Urine None Seen /hpf; Bilirubin Urine Negative (Negative); Blood Urine 2+ (Negative); Color Urine Yellow (Yellow); Glucose Urine UA 3+ mg/dL (Negative); Ketones Urine Trace mg/dL (Negative); Leukocyte Esterase Ur Negative LEU/UL (Negative); Nitrate Urine Negative (Negative); Protein Urine 2+ mg/dL (Negative); RBC Urine 21-50 /hpf (0-2); Specific Grav Ur 1.029 (1.001-1.035); Squamous Epithelial Cell Urine None Seen /hpf (Few); Urobilinogen Urine 0.2 mg/dL (<2.0); WBC Urine 0-5 /hpf (0-3); pH Urine 5.5 (5.0-9.0)
[2024-03-31 11:57] LABS: Add Urine Microscopic? YES
--- NOTE | 2024-03-31 11:57 | ED.FALL ---
HPI - Fall General Chief Complaint: Fall Stated Complaint: fall Time Seen by Provider: 03/31/24 10:37 Source: patient Mode of arrival: EMS Limitations: no limitations History of Present Illness HPI Narrative: 78-year-old with a history of hypertension diabetes, hyperlipidemia here with a complaint of right hip pain. Patient states that she fell last night after using the restroom. Patient states that feedings gave away and she did the splits hit back of her head no LOC woke up this morning with severe pain in the right hip area. She denies any chest pain, shortness of breath. MD complaint: fall Onset (ago): day(s) (1) Fall from: standing Fall witnessed: yes, by family Place fall occurred: home Loss of consciousness: none Context: tripped/slipped Location of injury: other (Right hip) Related Data Home Medications Medication Instructions Recorded Confirmed ascorbic acid (vitamin C) 500 mg 500 mg PO DAILY 11/19/19 02/27/24 tablet (Vitamin C) calcium carbonate (Calcium 600) 600 mg PO DAILY 11/19/19 02/27/24 krill 300 mg-omega 3 90 mg-dha 24 1 cap PO DAILY 11/19/19 02/27/24 mg-epa 50 [id number] capsule (MegaRed [place]-3 Krill Oil) metoprolol succinate 25 mg 25 mg PO DAILY 11/19/19 02/27/24 tablet,extended release 24 hr vitamin B12 1,000 mcg-folic acid 1 tablet sublingual DAILY 11/19/19 02/27/24 400 mcg sublingual tablet cholecalciferol (vitamin D3) 50 50 mcg PO DAILY 01/13/21 02/27/24 mcg (2,000 unit) capsule aspirin 81 mg tablet,delayed 81 mg PO DAILY 11/09/22 02/27/24 release sertraline 100 mg tablet 100 mg PO DAILY 06/25/23 02/27/24 mirtazapine 15 mg tablet 15 mg PO QHS 07/11/23 02/27/24 rosuvastatin 20 mg tablet 40 mg PO DAILY 12/11/23 02/27/24 Allergies Allergy/AdvReac Type Severity Reaction Status Date / Time No Known Allergies Allergy Verified 03/31/24 10:37 Review of Systems Review of Systems: All systems reviewed & are unremarkable except as noted in HPI and below Constitutional: Constitutional: Reports no additional constitutional complaints Eyes: Eyes: Reports no additional eye complaints ENT: Reports system reviewed and no additional complaints, except as documented Cardiovascular: Cardiovascular: Reports no additional cardiovascular complaints Respiratory: Respiratory: Reports no additional respiratory complaints Gastrointestinal: Gastrointestinal: Reports no additional gastrointestinal complaints Musculoskeletal: Musculoskeletal: Reports as per HPI Neurologic: Reports system reviewed and no additional complaints, except as documented Psychiatric: Psychiatric: Reports no additional psychiatric complaints PMFSH Past Medical History Medical History Abscess Acute UTI Anemia Anxiety Arthritis ASHD (arteriosclerotic heart disease) Bilateral carotid bruits Body mass index [BMI] 28.0-28.9, adult (12/18/16) Body mass index [BMI] 29.0-29.9, adult (06/18/16) Body mass index [BMI] 30.0-30.9, adult (12/15/15) Body mass index [BMI] 31.0-31.9, adult (01/06/18) Cellulitis of upper extremity Central sleep apnea (~07/18/23) central sleep apnea index of 4.8 on 07/18/2023. Cerebellar dysfunction Closed fracture of ramus of right pubis with routine healing Closed fracture of right pubis Constipation COPD mixed type Diabetes type 2, controlled Diastolic dysfunction Dysarthria Dysuria Dysuria Encounter to establish care Falls frequently Heart disease Heart murmur Hematuria HLD (hyperlipidemia) HTN (hypertension) HTN (hypertension) Hx of falling Insomnia Kidney disease Left humeral fracture Left leg weakness Multiple thyroid nodules Nasal folliculitis Nausea Neuropathy HELLEN (obstructive sleep apnea) (~07/18/23) Home sleep study 07/18/2023 with AHI of 21.3 with oxygen saturation to 85% with central sleep apnea index of 4.8. Patient needs CPAP titration. Post menopausal problems Rhinitis Sinusitis Skin lesion Sore t
[2024-03-31 12:49] LABS: Glucose Point of Care 316 mg/dl (65-105)
--- NOTE | 2024-03-31 12:55 | PM.IMHP ---
H&P: HPI History of Present Illness Date/Time: 03/31/24 12:55 Chief Complaint: fall Narrative: 78-year-old with a history of hypertension diabetes, chronic thrombocytopenia, CKD stage 4, hyperlipidemia present ED with a chief complaint of fall and right hip pain. patient states she went to bathroom in the night, and Lost balance. patient fell on right hip and hitting her head, patient sustained severe right hip pain, and patient could not stand up. Patient denies headache, bleeding, confusion, focal weakness, abnormal sensation, chest pain, palpitation, abdomen pain, nausea vomiting diarrhea dysuria. Patient was brought to ED for evaluation treatment. Upon arrival in the ED, torsion was afebrile, blood pressure stable, no O2 desaturation on room air. Labs showed thrombocytopenia 86,000 on baseline. BUN 32, creatinine 1.7, close to baseline . CT scan showed no acute intracranial issues, no cervical fracture, x-ray shows right intertrochanteric fracture of the proximal right femur. ER physician consulted orthopedic doctor, plans surgical treatment DM tomorrow Review of Systems Review of Systems: ROS negative except above PMFSH Past Medical History Medical History Abscess Acute UTI Anemia Anxiety Arthritis ASHD (arteriosclerotic heart disease) Bilateral carotid bruits Body mass index [BMI] 28.0-28.9, adult (12/18/16) Body mass index [BMI] 29.0-29.9, adult (06/18/16) Body mass index [BMI] 30.0-30.9, adult (12/15/15) Body mass index [BMI] 31.0-31.9, adult (01/06/18) Cellulitis of upper extremity Central sleep apnea (~07/18/23) central sleep apnea index of 4.8 on 07/18/2023. Cerebellar dysfunction Closed fracture of ramus of right pubis with routine healing Closed fracture of right pubis Constipation COPD mixed type Diabetes type 2, controlled Diastolic dysfunction Dysarthria Dysuria Dysuria Encounter to establish care Falls frequently Heart disease Heart murmur Hematuria HLD (hyperlipidemia) HTN (hypertension) HTN (hypertension) Hx of falling Insomnia Kidney disease Left humeral fracture Left leg weakness Multiple thyroid nodules Nasal folliculitis Nausea Neuropathy HELLEN (obstructive sleep apnea) (~07/18/23) Home sleep study 07/18/2023 with AHI of 21.3 with oxygen saturation to 85% with central sleep apnea index of 4.8. Patient needs CPAP titration. 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 Urinary incontinence in female UTI (urinary tract infection) UTI symptoms Vaginal yeast infection Surgical History Surgical History History of coronary artery stent placement Hx of pelvic surgery Hx of removal of neck cyst Family History Family History Sibling Family history of cardiovascular disease Other Arthritis Depression Diabetes mellitus Heart disease High cholesterol Hypertension Neuropathy Social History Social History Social History: Patient does not drinks caffeine or exercise. Smoking status: Former smoker Second hand tobacco smoke exposure: No Smoking end date: 10/28/96 Alcohol intake: never Substance use: never Substance use type: does not use Do You Feel Safe in your Home?: Yes Lack of Transportation: No Lack of Food: Often True Current Housing: I Have Housing Concerned About Future Housing: No Difficulty Paying Gas/Electric Bills: No Difficulty Paying for Meds: No Currently Unemployed: No Ed
--- NOTE | 2024-03-31 13:09 | ADMGEN ---
This patient, Rosalina Kenney, was admitted to Medical Room 246-. Patient/family oriented to hospital policies and general routines including ID bracelet, bed and alarms, visiting hours, pain management, procedures, bathroom and other care routines, personal items, smoking policy, room service/diet, and visiting hours. Information on how to activate the Rapid Response Team has been discussed. Patient/Family are encouraged to report perceived risks to care and to ask questions if they do not understand what they are told or what they should do.
[2024-03-31] MEDS: SODIUM CHLORIDE 0.45% 1,000 ML 100 ML IV CONT ×2 (13:55→19:40)
--- NOTE | 2024-03-31 16:39 | PM.CNOR ---
Assessment and Plan Assessment and plan (1) Intertrochanteric fracture of right hip: Qualifiers: Encounter type: initial encounter Fracture alignment: nondisplaced Fracture type: closed Qualified Code(s): S72.144A - Nondisplaced intertrochanteric fracture of right femur, initial encounter for closed fracture Code(s): S72.141A - Displaced intertrochanteric fracture of right femur, initial encounter for closed fracture Status: Acute Assessment and Plan: Patient has an Intertrochanteric Fracture of the RIGHT hip. Was ambulatory before. Higher risk because of medical issue. Will proceed with ORIF R hip with a trochanteric nail. History of Present Illness HPI Consult date: 03/31/24 Chief complaint: Right Intertrochantric Fracture Narrative: Patient had a fall and sustained a Right Intertrochanteric Fracture. Review of Systems Musculoskeletal: Musculoskeletal: Reports myalgias, Reports arthralgias, Reports joint swelling and Reports stiffness PMFSH Past Medical History Medical History Abscess Acute UTI Anemia Anxiety Arthritis ASHD (arteriosclerotic heart disease) Bilateral carotid bruits Body mass index [BMI] 28.0-28.9, adult (12/18/16) Body mass index [BMI] 29.0-29.9, adult (06/18/16) Body mass index [BMI] 30.0-30.9, adult (12/15/15) Body mass index [BMI] 31.0-31.9, adult (01/06/18) Cellulitis of upper extremity Central sleep apnea (~07/18/23) central sleep apnea index of 4.8 on 07/18/2023. Cerebellar dysfunction Closed fracture of ramus of right pubis with routine healing Closed fracture of right pubis Constipation COPD mixed type Diabetes type 2, controlled Diastolic dysfunction Dysarthria Dysuria Dysuria Encounter to establish care Falls frequently Heart disease Heart murmur Hematuria HLD (hyperlipidemia) HTN (hypertension) HTN (hypertension) Hx of falling Insomnia Kidney disease Left humeral fracture Left leg weakness Multiple thyroid nodules Nasal folliculitis Nausea Neuropathy HELLEN (obstructive sleep apnea) (~07/18/23) Home sleep study 07/18/2023 with AHI of 21.3 with oxygen saturation to 85% with central sleep apnea index of 4.8. Patient needs CPAP titration. 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 Urinary incontinence in female UTI (urinary tract infection) UTI symptoms Vaginal yeast infection Surgical History Surgical History History of coronary artery stent placement Hx of pelvic surgery Hx of removal of neck cyst Family History Family History Sibling Family history of cardiovascular disease Other Arthritis Depression Diabetes mellitus Heart disease High cholesterol Hypertension Neuropathy Social History Social History Social History: Patient does not drinks caffeine or exercise. Smoking status: Former smoker Second hand tobacco smoke exposure: No Smoking end date: 10/28/96 Alcohol intake: never Substance use: never Substance use type: does not use Do You Feel Safe in your Home?: Yes Lack of Transportation: No Lack of Food: Never True Current Housing: I Have Housing Concerned About Future Housing: No Difficulty Paying Gas/Electric Bills: No Difficulty Paying for Meds: No Currently Unemployed: No Education: High School Diploma/GED Difficulty w/ Childcare or Family Care: No Living arrangements: alone Gender identity (if verbalized by the patient): Female Philip
[2024-03-31 17:03] LABS: Glucose Point of Care 354 mg/dl (65-105)
[2024-03-31] MEDS: INSULIN ASPART (*BKC) 100 UNITS/ML SUB-Q ×2 (17:04→21:16)
[2024-03-31] MEDS: ACETAMINOPHEN 325 MG TABLET 650 MG PO (19:39)
[2024-03-31 21:02] LABS: Glucose Point of Care 296 mg/dl (65-105)
[2024-03-31] MEDS: INSULIN GLARGINE (*BKC) 100 UNITS/ML 20 UNITS SUB-Q (21:15)
[2024-04-01] VITALS (13 sets, daily range): BP systolic 118–218; BP diastolic 44–82; PULSE 73–119; RESP 14–26; TEMP 36.1–37.2; O2SAT 90–100
[2024-04-01 04:45] LABS: Basophils Percent Auto 0.5 % (0.2-1.2); Eosinophils Absolute Auto 0.1 K/mm3 (0-0.3); Eosinophils Percent Auto 1.6 % (0-4.4); Hematocrit 36.8 % (37.0-47.0); Hemoglobin 11.9 g/dL (12.0-15.0); Immature Granulocyte Absolute 0.04 K/mm3 (0.00-0.031); Immature Granulocyte Percent A 0.6 % (0-0.5); Immature Platelet Fraction Pct 3.8 % (0.9-11.2); Lymphocytes Absolute Auto 1.26 K/mm3 (0.9-3.2); Lymphocytes Percent Auto 20.2 % (18.3-44.2); Mean Corpuscular HGB Conc 32.3 g/dl (32-36); Mean Corpuscular Hemoglobin 30.4 pg (26-34); Mean Corpuscular Volume 93.9 fl (80-100); Mean Platelet Volume 11.2 fl (7.4-10.4); Monocytes Absolute Auto 0.5 K/mm3 (0.1-0.6); Monocytes Percent Auto 8.7 % (2.6-8.5); Neutrophils Absolute Auto 4.3 K/mm3 (1.3-6.7); Neutrophils Percent Auto 68.4 % (45.5-73.1); Platelet Count Result 87 k/mm3 (150-375); Red Blood Count 3.92 M/mm3 (4.2-5.4); Red Cell Distribution Width 14.1 % (11.5-14.5); White Blood Count 6.2 K/mm3 (4.5-10.0)
[2024-04-01 04:56] LABS: Anion Gap 6 mmol/L (4-12); Blood Urea Nitrogen 34 mg/dL (7-17); Carbon Dioxide 26 mmol/L (22-30); Chloride 106 mmol/L (98-107); Estimated CRCL calculation 26 ml/min; Estimated Glomerular Filt Rate 31; Glucose 140 mg/dL (65-110); Potassium 3.7 mmol/L (3.4-5.0); Sodium 138 mmol/L (137-145)
[2024-04-01] MEDS: SODIUM CHLORIDE 0.45% 1,000 ML 100 ML IV CONT (05:50)
[2024-04-01 07:55] LABS: Glucose Point of Care 172 mg/dl (65-105)
[2024-04-01] MEDS: ACETAMINOPHEN 325 MG TABLET 650 MG PO ×3 (08:22→23:18)
--- NOTE | 2024-04-01 08:58 | PM.IMPN ---
Progress Note: A&P Assessment and Plan (1) Intertrochanteric fracture of right hip: Qualifiers: Encounter type: initial encounter Fracture alignment: nondisplaced Fracture type: closed Qualified Code(s): S72.144A - Nondisplaced intertrochanteric fracture of right femur, initial encounter for closed fracture Code(s): S72.141A - Displaced intertrochanteric fracture of right femur, initial encounter for closed fracture Status: Acute (2) Accidental fall: Code(s): W19.XXXA - Unspecified fall, initial encounter Status: Acute (3) UTI (urinary tract infection): Code(s): N39.0 - Urinary tract infection, site not specified Status: Acute (4) Diabetes mellitus with chronic kidney disease: Code(s): E11.22 - Type 2 diabetes mellitus with diabetic chronic kidney disease Status: Acute (5) CKD stage 4 due to type 2 diabetes mellitus: Code(s): E11.22 - Type 2 diabetes mellitus with diabetic chronic kidney disease; N18.4 - Chronic kidney disease, stage 4 (severe) Status: Acute (6) HTN (hypertension): Code(s): I10 - Essential (primary) hypertension Status: Acute Plan right inter trochanter fracture of right hip and fall Patient had a accident fall, sustained right hip pain x-ray shows a right intertrochanteric fracture of right hip optimize pain management NPO after midnight ER physician consulted orthopedic surgeon plans surgical treatment Today consult PT OT healthcare facility administrator for evaluation and assisting placement Chronic thrombocytopenia Unclear etiologies No active bleeding Follow-up CBC No need anticoagulation now, but postop anticoagulation per Orthopedic surgery recommendation thrombocytopenia stable, no active bleeding essential hypertension Continue lisinopril 10 mg daily p.o., metoprolol 25 mg daily p.o., controlled type 2 diabetes Continue glargine 20 unit daily Start sliding scale a.c. q.h.s. Hold oral medications glipizide, and Jardiance hyperlipidemia Continue Crestor 22 mg daily patient may stay more than 2 midnight hospital Subjective Date/time seen: 04/01/24 08:58 Interval history: I saw and examined patient today, patient feels pain is tolerable, patient denies chest pain shortness breath, headache, focal weakness abdomen pain nausea vomiting. Patient is afebrile, blood pressure stable, no new issue or event overnight. Exam Narrative: GENERAL: Pleasant, in no acute distress. Well-nourished. - EYES: EOMI. Anicteric. - HENT: Moist mucous membranes. - LUNGS: Clear to auscultation bilaterally, no wheezing, rhonchi, or rales. - CARDIOVASCULAR: Regular rate and rhythm. No murmur. No JVD. - ABDOMEN: Soft, non-tender and non-distended. No palpable masses. - EXTREMITIES: No edema. Peripheral pulses 2+. Non-tender. restriction movement of right hip because of pain - NEUROLOGIC: No focal neurological deficits. CN II-XII grossly intact. - PSYCHIATRIC: Awake, Alert and oriented x 3. Appropriate mood and affect. - SKIN: No rashes or lesions. Warm. - LYMPH: No cervical lymphadenopathy. Objective Data Vital Signs Vital Signs: Vital Signs - 24 hr 03/31/24 10:27 03/31/24 10:36 03/31/24 11:47 Temperature 99.1 F Pulse Rate 89 88 92 Respiratory Rate 18 23 H 17 Blood Pressure 155/65 H 137/62 Pulse Oximetry 95 99 100 Oxygen Delivery Room Air 03/31/24 11:48 03/31/24 12:47 03/31/24 13:09 Temperature 98.1 F Pulse Rate 93 89 89 Respiratory Rate 21 H 16 16 Blood Pressure 143/67 H 139/55 L Pulse Oximetry 94 98 98 Oxygen Delivery 03/31/24 16:21 03/31/24 20:00 03/31/24 22:00 Temperature 97.9 F Pulse Rate 60 Respiratory Rate 14 Blood Pressure 138/50 L Pulse Oximetry 100 Oxygen Delivery Room Air Room Air 04/01/24 05:04 Temperature 98.0 F Pulse Rate 73 Respiratory Rate 14 Blood Pressure 123/55 L Pulse Oximetry 97 Oxygen Delivery Intake/Output Intake/Output
[2024-04-01 11:41] LABS: Glucose Point of Care 186 mg/dl (65-105)
[2024-04-01] MEDS: LACTATED RINGERS 1,000 ML 30 ML IV CONT (12:30)
--- NOTE | 2024-04-01 12:32 | PC.NURSE ---
Taken to OR at 1225. Report given to MANJINDER TRENT.
[2024-04-01 12:46] LABS: Glucose Point of Care 187 mg/dl (65-105)
[2024-04-01] MEDS: TRANEXAMIC ACID 1,000MG/ISO100 1,000 MG/100 ML BAG 200 MG IVPB (12:59)
--- NOTE | 2024-04-01 13:12 | WPDANESEPPF ---
Anes - Initial Pre Proc Eval Procedure: Operation Date: 04/01/24 14:00 Proposed Procedures p Right Intertrochanteric Nail - Brendan Mora MD Date/Time: 04/01/24 13:12 Surgeon: Carolyn Fernandez MD Pre Op Diagnosis: Right Intertrochantric Fracture Patient Data Age: 78 Gender: F Height: 1.57 m Weight: 77.6 kg Last Vital Signs Temp 98.0 F 04/01/24 05:04 Pulse 73 04/01/24 05:04 Resp 14 04/01/24 05:04 BP 123/55 L 04/01/24 05:04 Pulse Ox 97 04/01/24 05:04 O2 Del Method Room Air 04/01/24 08:00 Allergies Allergy/AdvReac Type Severity Reaction Status Date / Time [place] And Derivatives Allergy Unknown Verified 04/01/24 12:58 Home Medications Medication Instructions Recorded Confirmed Type ascorbic acid (vitamin C) 500 mg 500 mg PO DAILY 11/19/19 03/31/24 History tablet (Vitamin C) calcium carbonate (Calcium 600) 600 mg PO DAILY 11/19/19 03/31/24 History krill 300 mg-omega 3 90 mg-dha 24 1 cap PO DAILY 11/19/19 03/31/24 History mg-epa 50 [id number] capsule (MegaRed [place]-3 Krill Oil) metoprolol succinate 25 mg 25 mg PO DAILY 11/19/19 03/31/24 History tablet,extended release 24 hr vitamin B12 1,000 mcg-folic acid 1 tablet sublingual DAILY 11/19/19 03/31/24 History 400 mcg sublingual tablet cholecalciferol (vitamin D3) 50 50 mcg PO DAILY 01/13/21 03/31/24 History mcg (2,000 unit) capsule lisinopril 10 mg tablet See Rx Instructions .Route 05/26/21 03/31/24 Rx .COMPLEX #90 tabs blood sugar diagnostic (Contour #200 ea 12/18/21 03/31/24 Rx Next Test Strips) blood-glucose meter (Contour Next #1 ea 12/18/21 03/31/24 Rx Meter) lancets (Microlet Lancet) #200 ea 12/18/21 03/31/24 Rx aspirin 81 mg tablet,delayed 81 mg PO DAILY 11/09/22 03/31/24 History release pen needle, diabetic 31 gauge x #100 ea 03/07/23 03/31/24 Rx 3/16 (BD Ultra-Fine Mini Pen Needle) insulin glargine 100 unit/mL (3 See Rx Instructions .Route 06/25/23 03/31/24 Rx mL) subcutaneous pen (Lantus .COMPLEX #30 mL Solostar U-100 Insulin) sertraline 100 mg tablet 100 mg PO DAILY 06/25/23 03/31/24 History mirtazapine 15 mg tablet 15 mg PO QHS 07/11/23 03/31/24 History glipizide 10 mg tablet, extended 10 mg PO BID #180 tabs 08/28/23 03/31/24 Rx release 24 hr empagliflozin 25 mg tablet 25 mg PO DAILY #30 tabs 10/31/23 03/31/24 Rx (Jardiance) torsemide 5 mg tablet 5 mg PO QAM #90 tabs 11/19/23 03/31/24 Rx eszopiclone 2 mg tablet (Lunesta) 2 mg PO QHS #1 tablet 12/11/23 03/31/24 Rx rosuvastatin 20 mg tablet 40 mg PO DAILY 12/11/23 03/31/24 History BPAP Equipment #1 ea 01/19/24 03/31/24 Rx fluticasone propionate 50 1 spray intranasal DAILY PRN Cold 03/31/24 03/31/24 History mcg/actuation nasal Symptoms spray,suspension (Flonase Allergy Relief) Laboratory Tests 03/31/24 03/31/24 04/01/24 16:59 20:50 04:14 WBC 6.2 K/mm3 (4.5-10.0) RBC 3.92 L M/mm3 (4.2-5.4) Hgb 11.9 L g/dL (12.0-15.0) Hct 36.8 L % (37.0-47.0) MCV 93.9 fl (80-100) MCH 30.4 pg (26-34) MCHC 32.3 g/dl (32-36) RDW 14.1 % (11.5-14.5) Plt Count 87 L k/mm3 (150-375) MPV 11.2 H fl (7.4-10.4) Immature Gran % (Auto) 0.6 H % (0-0.5) Neut % (Auto) 68.4 % (45.5-73.1) Lymph % (Auto) 20.2 % (18.3-44.2) [place] % (Auto) 8.7 H % (2.6-8.5) Eos % (Auto) 1.6 % (0-4.4) Baso % (Auto) 0.5 % (0.2-1.2) Lymph # (Auto) 1.26 K/mm3 (0.9-3.2) [place] # (Auto) 0.5 K/mm3 (0.1-0.6) Eos # (Auto) 0.1 K/mm3 (0-0.3) Baso # (Auto) 0.0 K/mm3 (0.0-0.1) Abs Immat Gran (auto) 0.04 H K/mm3 (0.00-0.031) Absolute Neuts (auto) 4.3 K/mm3 (1.3-6.7) Absolute Nucleated RBC 0.000 K/mm3 (0.0-0.012) Nucleated RBC % 0.0 % (0.0-0.2) % Immature Plt Fraction 3.8
--- NOTE | 2024-04-01 13:35 | WPDHPUPDATE1 ---
History and Physical Update Update Date/Time: 04/01/24 13:35 History and Physical has been reviewed, including an updated exam of the patient. There are NO changes in the patient's condition. Risks, benefits, and alternatives have been discussed and questions answered. Patient agrees to proceed with procedure.
[2024-04-01] MEDS: ceFAZolin 2 GM/D5W 50 ML 2 GM/50 ML BAG IVPB ×2 (14:19→20:35)
--- NOTE | 2024-04-01 15:07 | W.PM.PROC2 ---
Procedure Note - Detailed Date of Procedure 04/01/24 Pre-op Diagnosis Right Intertrochantric Fracture Post-op Diagnosis Same Procedure Performed Open reduction internal fixation right hip with a trochanteric nail Surgeon Brendan Mora MD Anesthesia General Indications Fracture and pain Description of Procedure Patient was brought to operating room 7. General anesthetic was administered. She was placed on the fracture table with some difficulty the fracture was reduced. She tended to externally rotate the right leg in particular. Difficult to get it balanced however I believe I got a satisfactory rid of reduction. She was then sterilely prepped and draped in usual manner. Longitudinal incision made over the tip of the trochanter broached with one-step Reamer. This was placed in the reamed down to 13 the 13 millimeters. An 11 x 125 nail placed with 195 milliliters millimeter screw up in the center of the head. X-rays in the AP and lateral plane demonstrated excellent alignment of the fracture the screw was well positioned the head. The wound irrigated hemostasis obtained and closed with 2. Vicryl 2-0 Vicryl and whit. Sterile dressing applied patient tolerated procedure well and left the operating was satisfactory condition. Implants [employer] Troch Nail Estimated Blood Loss 100 Urine Output 300 Packing No Pathology None sent Complications No immediate complications Condition Stable Disposition PACU [facility] Billing Surgery - Charge Forward: Surgery Billing ([id number] ORIF Troch FX)
[2024-04-01] MEDS: METOPROLOL TARTRATE INJ 5 MG/5 ML VIAL IV PUSH (15:32)
[2024-04-01 15:44] LABS: Glucose Point of Care 222 mg/dl (65-105)
--- NOTE | 2024-04-01 16:01 | SUR.PHASEI ---
1600: Simple mask removed.
--- NOTE | 2024-04-01 16:03 | SUR.PHASEI ---
1528: Dr. Silva called d/t patient's HR and BP upon arrival to PACU. While Dr. Silva at the bedside, patient desated to 83% on 15L simple mask. KALYAN Levin provided mechanical ventilation to patient and sats improved to 100%. Patient was switched back to 15L simple mask and was spontaneously breathing on her own. Patient's BG was [address] Silav made aware and no further treatment at this time.
[2024-04-01] MEDS: fentaNYL CITRATE INJ (*CRX) 100 MCG/2 ML VIAL 25 MCG IV PUSH (16:23)
[2024-04-01 17:11] LABS: Glucose Point of Care 203 mg/dl (65-105)
[2024-04-01] MEDS: HYDROcodone/acetaminophen (*CRX) 7.5-325 MG TABLET 1 TAB PO (17:18)
[2024-04-01] MEDS: SENNA/DOCUSATE SODIUM TABLET 2 TAB PO (17:19)
[2024-04-01] MEDS: RIVAROXABAN 10 MG TABLET PO (17:19)
[2024-04-01] MEDS: glipiZIDE XL 5 MG TABCR 10 MG PO (17:19)
[2024-04-01] MEDS: HYDROcodone/acetaminophen (*CRX) 5-325 MG TABLET 1 TAB PO (20:29)
[2024-04-01] MEDS: MIRTAZAPINE 15 MG TABLET PO (20:29)
[2024-04-01] MEDS: INSULIN ASPART (*BKC) 100 UNITS/ML SUB-Q (20:41)
[2024-04-01 20:49] LABS: Glucose Point of Care 221 mg/dl (65-105)
[2024-04-02 00:51] VITALS: BP 136/52; PULSE 81; RESP 18; TEMP 36.6; O2SAT 95
[2024-04-02] MEDS: HYDROcodone/acetaminophen (*CRX) 7.5-325 MG TABLET 1 TAB PO (02:56)
[2024-04-02 03:58] VITALS: BP 142/49; PULSE 90; RESP 16; TEMP 36.4; O2SAT 92
[2024-04-02 05:04] LABS: Basophils Percent Auto 0.3 % (0.2-1.2); Hematocrit 35.1 % (37.0-47.0); Hemoglobin 11.4 g/dL (12.0-15.0); Immature Granulocyte Absolute 0.03 K/mm3 (0.00-0.031); Immature Granulocyte Percent A 0.4 % (0-0.5); Immature Platelet Fraction Pct 4.1 % (0.9-11.2); Lymphocytes Percent Auto 9.3 % (18.3-44.2); Mean Corpuscular HGB Conc 32.5 g/dl (32-36); Mean Corpuscular Hemoglobin 30.9 pg (26-34); Mean Corpuscular Volume 95.1 fl (80-100); Mean Platelet Volume 10.9 fl (7.4-10.4); Monocytes Absolute Auto 0.6 K/mm3 (0.1-0.6); Monocytes Percent Auto 8.4 % (2.6-8.5); Neutrophils Absolute Auto 6.1 K/mm3 (1.3-6.7); Neutrophils Percent Auto 81.6 % (45.5-73.1); Platelet Count Result 89 k/mm3 (150-375); Red Blood Count 3.69 M/mm3 (4.2-5.4); Red Cell Distribution Width 14.3 % (11.5-14.5); White Blood Count 7.5 K/mm3 (4.5-10.0)
[2024-04-02 05:11] LABS: Anion Gap 11 mmol/L (4-12); Blood Urea Nitrogen 32 mg/dL (7-17); Calcium 8.8 mg/dL (8.4-10.2); Carbon Dioxide 20 mmol/L (22-30); Chloride 103 mmol/L (98-107); Estimated CRCL calculation 26 ml/min; Estimated Glomerular Filt Rate 31; Glucose 214 mg/dL (65-110); Potassium 5.1 mmol/L (3.4-5.0); Sodium 134 mmol/L (137-145)
[2024-04-02] MEDS: ACETAMINOPHEN 325 MG TABLET 650 MG PO ×4 (05:39→23:08)
[2024-04-02] MEDS: ceFAZolin 2 GM/D5W 50 ML 2 GM/50 ML BAG IVPB ×2 (05:45→15:22)
--- NOTE | 2024-04-02 06:53 | PM.PNORT ---
Progress Note: A&P Assessment and Plan (1) Intertrochanteric fracture of right hip: Qualifiers: Encounter type: initial encounter Fracture alignment: nondisplaced Fracture type: closed Qualified Code(s): S72.144A - Nondisplaced intertrochanteric fracture of right femur, initial encounter for closed fracture Code(s): S72.141A - Displaced intertrochanteric fracture of right femur, initial encounter for closed fracture Status: Acute Assessment and Plan: Patient underwent open reduction internal fixation of an intertrochanteric fracture with a trochanteric nail. She is progressing reasonably well. We will immobilize her today. She will need rehab or half-way placement. Subjective Subjective Date/Time Seen: 04/02/24 06:53 Post Op day: 1 Principal diagnosis: Intertrochanteric fracture status post open reduction internal fixation. Review of Systems Musculoskeletal: Musculoskeletal: Reports myalgias, Reports arthralgias, Reports joint swelling and Reports stiffness Exam Narrative: Dressing is intact. Patient wiggles toes. Mild pain with manipulation. Resp: Effort & Inspection: normal respiratory effort Cardio: Rate: regular rate Rhythm: regular rhythm Objective Data Vital Signs Vital Signs: Vital Signs - 24 hr 04/01/24 08:00 04/01/24 13:00 04/01/24 15:22 Temperature 97.1 F L 99.0 F Pulse Rate 80 117 H Respiratory Rate 16 20 Blood Pressure 133/76 218/82 H Pulse Oximetry 99 94 Oxygen Delivery Room Air Room Air Simple Face Mask Oxygen Flow Rate 10 04/01/24 15:35 04/01/24 15:32 04/01/24 15:50 Temperature Pulse Rate 103 H 119 H 79 Respiratory Rate 26 H 14 Blood Pressure 121/57 L 141/48 H Pulse Oximetry 93 100 Oxygen Delivery Bag Valve Mask Simple Face Mask Oxygen Flow Rate 15 14 04/01/24 16:05 04/01/24 16:20 04/01/24 16:35 Temperature Pulse Rate 80 80 86 Respiratory Rate 17 17 17 Blood Pressure 129/46 L 118/55 L 120/44 L Pulse Oximetry 94 96 93 Oxygen Delivery Room Air Room Air Room Air Oxygen Flow Rate 04/01/24 17:10 04/01/24 18:13 04/01/24 19:47 Temperature 97.0 F L 97.8 F Pulse Rate 86 85 Respiratory Rate 20 18 Blood Pressure 124/48 L 122/50 L Pulse Oximetry 92 92 Oxygen Delivery Room Air Oxygen Flow Rate 04/01/24 21:27 04/01/24 21:34 04/02/24 00:51 Temperature 97.8 F 97.9 F Pulse Rate 85 81 Respiratory Rate 18 16 18 Blood Pressure 145/58 H 136/52 L Pulse Oximetry 90 97 95 Oxygen Delivery Autopap Oxygen Flow Rate 04/02/24 03:58 Temperature 97.6 F Pulse Rate 90 Respiratory Rate 16 Blood Pressure 142/49 H Pulse Oximetry 92 Oxygen Delivery Oxygen Flow Rate Intake/Output Intake/Output: Intake & Output 03/30/24 03/31/24 04/01/24 04/02/24 23:59 23:59 23:59 23:59 Intake Total 1055 1600 450 Output Total 600 1600 Balance 455 0 450 Meds/Results Medications: Active Medications Generic Name Dose Route Start Last Admin Trade Name Freq PRN Reason Stop Dose Admin Acetaminophen 650 mg 04/01/24 18:00 04/02/24 05:39 Acetaminophen 325 Mg Tablet PO 650 mg Q6HR MATILDE Administration Hydrocodone Bitart/Acetaminophen 1 tab 04/01/24 16:47 04/01/24 20:29 Hydrocodone/Acetaminophen (*Crx) 5-325 Mg Tablet PO 1 tab Q4H PRN Administration Pain Rated 4-6 Hydrocodone Bitart/Acetaminophen 1 tab 04/01/24 16:47 04/02/24 02:56 Hydrocodone/Acetaminophen (*Crx) 7.5-325 Mg Tablet PO 1 tab Q4H PRN Administration Pain Rated 7-10 Aspirin 81 mg 04/02/24 09:00 Aspirin 81 Mg Enteric Tablet PO DAILY [facility] Celecoxib 200 mg 04/02/24 08:00 Celecoxib 200 Mg Capsule PO DAILY@0800 [facility] Cyclobenzaprine HCl 10 mg 04/01/24 16:47 Cyclobenzaprine Hcl 10 Mg Tablet PO Q8H PRN Muscle Spasm Dextrose 12.5 gm 04/01/24 17:32 Dextrose 50% 25 Gm/50 Ml Syringe IV PUSH PRN PRN Hypoglycemia Protocol Empagliflozin 25 mg 0
--- NOTE | 2024-04-02 08:10 | PM.IMPN ---
Progress Note: A&P Assessment and Plan (1) Intertrochanteric fracture of right hip: Qualifiers: Encounter type: initial encounter Fracture alignment: nondisplaced Fracture type: closed Qualified Code(s): S72.144A - Nondisplaced intertrochanteric fracture of right femur, initial encounter for closed fracture Code(s): S72.141A - Displaced intertrochanteric fracture of right femur, initial encounter for closed fracture Status: Acute (2) Accidental fall: Code(s): W19.XXXA - Unspecified fall, initial encounter Status: Acute (3) UTI (urinary tract infection): Code(s): N39.0 - Urinary tract infection, site not specified Status: Acute (4) Diabetes mellitus with chronic kidney disease: Code(s): E11.22 - Type 2 diabetes mellitus with diabetic chronic kidney disease Status: Acute (5) CKD stage 4 due to type 2 diabetes mellitus: Code(s): E11.22 - Type 2 diabetes mellitus with diabetic chronic kidney disease; N18.4 - Chronic kidney disease, stage 4 (severe) Status: Acute (6) HTN (hypertension): Code(s): I10 - Essential (primary) hypertension Status: Acute Plan right inter trochanter fracture of right hip and fall Patient had a accident fall, sustained right hip pain x-ray shows a right intertrochanteric fracture of right hip s/p Open reduction internal fixation right hip with a trochanteric nail optimize pain management consult PT OT director critical care for evaluation and assisting placement Chronic thrombocytopenia Unclear etiologies No active bleeding postop anticoagulation with Xarelto 10 mg daily p.o. per Orthopedic surgery thrombocytopenia stable, no active bleeding consult heme oncologist for evaluation treatment essential hypertension Continue lisinopril 10 mg daily p.o., metoprolol 25 mg daily p.o., controlled type 2 diabetes Continue glargine 20 unit daily Start sliding scale a.c. q.h.s. Hold oral medications glipizide, and Jardiance hyperlipidemia Continue Crestor 22 mg daily CKD stage 3B BUN creatinine on baseline Avoid nephrotoxic medication Gentle IV fluid with normal saline follow-up BMP patient may stay more than 2 midnight hospital Subjective Date/time seen: 04/02/24 08:10 Interval history: I saw and examined patient today, patient feels pain is tolerable, patient denies chest pain shortness breath, headache, focal weakness abdomen pain nausea vomiting. Patient is afebrile, blood pressure stable, no new issue or event overnight. labs reviewed, marginal hemoglobin 11.4, elevated BUN creatinine close to baseline Exam Narrative: GENERAL: Pleasant, in no acute distress. Well-nourished. - EYES: EOMI. Anicteric. - HENT: Moist mucous membranes. - LUNGS: Clear to auscultation bilaterally, no wheezing, rhonchi, or rales. - CARDIOVASCULAR: Regular rate and rhythm. No murmur. No JVD. - ABDOMEN: Soft, non-tender and non-distended. No palpable masses. - EXTREMITIES: No edema. Peripheral pulses 2+. Non-tender. restriction movement of right hip because of pain - NEUROLOGIC: No focal neurological deficits. CN II-XII grossly intact. - PSYCHIATRIC: Awake, Alert and oriented x 3. Appropriate mood and affect. - SKIN: No rashes or lesions. Warm. - LYMPH: No cervical lymphadenopathy. Objective Data Vital Signs Vital Signs: Vital Signs - 24 hr 04/01/24 13:00 04/01/24 15:22 04/01/24 15:35 Temperature 97.1 F L 99.0 F Pulse Rate 80 117 H 103 H Respiratory Rate 16 20 26 H Blood Pressure 133/76 218/82 H 121/57 L Pulse Oximetry 99 94 93 Oxygen Delivery Room Air Simple Face Mask Bag Valve Mask Oxygen Flow Rate 10 15 04/01/24 15:32 04/01/24 15:50 04/01/24 16:05 Temperature Pulse Rate 119 H 79 80 Respiratory Rate 14 17 Blood Pressure 141/48 H 129/46 L Pulse Oximetry 100 94 Oxygen Delivery Simple Face Mask Room Air Oxygen Flow Rate 14 04/01/24 16:20 04/01/24 16:35 04/01/24
--- NOTE | 2024-04-02 08:11 | WPDANESPN ---
Anes - Prog Note Post-Op Date/Time: 04/02/24 08:11 Cardiovascular status: normal Respiratory status: normal Airway patency: baseline Mental status: baseline Post-Op hydration status: normal Vital Signs: Last Vital Signs Temp 36.4 C 04/02/24 03:58 Pulse 90 04/02/24 03:58 Resp 16 04/02/24 03:58 BP 142/49 H 04/02/24 03:58 Pulse Ox 92 04/02/24 03:58 O2 Del Method Autopap 04/01/24 21:27 O2 Flow Rate 14 04/01/24 15:50 Pain Score (VAS): Patient asleep, no nonverbal signs of pain present at this time. I/O: Intake & Output 04/01/24 04/02/24 04/02/24 23:59 07:59 15:59 Intake Total 250 450 Balance 250 450 Laboratory Tests 04/02/24 04:31 04/02/24 04:31 04/01/24 04/01/24 04/01/24 11:33 12:40 15:42 WBC RBC Hgb Hct MCV MCH MCHC RDW Plt Count MPV Immature Gran % (Auto) Neut % (Auto) Lymph % (Auto) [place] % (Auto) Eos % (Auto) Baso % (Auto) Lymph # (Auto) [place] # (Auto) Eos # (Auto) Baso # (Auto) Abs Immat Gran (auto) Absolute Neuts (auto) Absolute Nucleated RBC Nucleated RBC % % Immature Plt Fraction Sodium Potassium Chloride Carbon Dioxide Anion Gap BUN Creatinine Estim Creat Clear Calc Estimated GFR Glucose POC Capillary Glucose 186 H 187 H 222 H Calcium 04/01/24 04/01/24 04/02/24 17:07 20:35 04:31 WBC 7.5 RBC 3.69 L Hgb 11.4 L Hct 35.1 L MCV 95.1 MCH 30.9 MCHC 32.5 RDW 14.3 Plt Count 89 L MPV 10.9 H Immature Gran % (Auto) 0.4 Neut % (Auto) 81.6 H Lymph % (Auto) 9.3 L [place] % (Auto) 8.4 Eos % (Auto) 0.0 Baso % (Auto) 0.3 Lymph # (Auto) 0.70 L [place] # (Auto) 0.6 Eos # (Auto) 0.0 Baso # (Auto) 0.0 Abs Immat Gran (auto) 0.03 Absolute Neuts (auto) 6.1 Absolute Nucleated RBC 0.000 Nucleated RBC % 0.0 % Immature Plt Fraction 4.1 Sodium 134 L Potassium 5.1 H Chloride 103 Carbon Dioxide 20 L Anion Gap 11 BUN 32 H Creatinine 1.60 H Estim Creat Clear Calc 26 Estimated GFR 31 L Glucose 214 H POC Capillary Glucose 203 H 221 H Calcium 8.8 Post-procedural complaints: none Patient Feedback: Patient satisfied with anesthetic care.
[2024-04-02 08:39] LABS: Glucose Point of Care 228 mg/dl (65-105)
[2024-04-02] MEDS: ASPIRIN 81 MG ENTERIC TABLET PO (08:59)
[2024-04-02] MEDS: CELECOXIB 200 MG CAPSULE PO (08:59)
[2024-04-02] MEDS: ROSUVASTATIN 20 MG TABLET 40 MG PO (08:59)
[2024-04-02 09:00] VITALS: PULSE 84
[2024-04-02] MEDS: EMPAGLIFLOZIN 25 MG TABLET PO (09:00)
[2024-04-02] MEDS: METOPROLOL SUCCINATE EXT REL 25 MG TABCR PO (09:00)
[2024-04-02] MEDS: lisinopriL 10 MG TABLET PO (09:00)
[2024-04-02] MEDS: polyethylene glycoL 3350 17 GM POWD.PACK PO (09:00)
[2024-04-02] MEDS: SENNA/DOCUSATE SODIUM TABLET 2 TAB PO ×2 (09:00→17:08)
[2024-04-02] MEDS: INSULIN ASPART (*BKC) 100 UNITS/ML SUB-Q ×4 (09:00→20:21)
[2024-04-02] MEDS: SERTRALINE HCL 50 MG TABLET 100 MG PO (09:00)
[2024-04-02] MEDS: glipiZIDE XL 5 MG TABCR 10 MG PO ×2 (09:02→17:08)
[2024-04-02] MEDS: HYDROcodone/acetaminophen (*CRX) 5-325 MG TABLET 1 TAB PO (09:07)
[2024-04-02] MEDS: INSULIN GLARGINE (*BKC) 100 UNITS/ML 22 UNITS SUB-Q (09:08)
[2024-04-02] MEDS: SODIUM CHLORIDE 0.9% IV 1,000 ML 100 ML IV CONT (09:08)
[2024-04-02 12:06] LABS: Glucose Point of Care 349 mg/dl (65-105)
[2024-04-02 14:00] VITALS: BP 136/58; PULSE 88; RESP 16; TEMP 36.4; O2SAT 92
[2024-04-02 17:40] LABS: Glucose Point of Care 287 mg/dl (65-105)
[2024-04-02 19:40] VITALS: BP 92/37; PULSE 87; RESP 18; TEMP 37.2; O2SAT 95
[2024-04-02] MEDS: MIRTAZAPINE 15 MG TABLET PO (20:18)
[2024-04-02 20:40] LABS: Glucose Point of Care 284 mg/dl (65-105)
[2024-04-02 21:39] LABS: Iron 22 ug/dL (37-170)
[2024-04-02 22:05] LABS: Percent Iron Saturation 7 % (20-50)
[2024-04-02 22:55] VITALS: PULSE 80; RESP 19; O2SAT 92
[2024-04-03 00:25] LABS: Folic Acid 4.9 ng/mL (2.76->20)
[2024-04-03] MEDS: SODIUM CHLORIDE 0.9% IV 1,000 ML 100 ML IV CONT ×2 (02:08→20:42)
[2024-04-03] MEDS: ACETAMINOPHEN 325 MG TABLET 650 MG PO ×4 (05:04→23:28)
[2024-04-03 06:00] VITALS: BP 103/35; PULSE 80; RESP 18; TEMP 36.9; O2SAT 94
--- NOTE | 2024-04-03 07:52 | PM.IMPN ---
Progress Note: A&P Assessment and Plan (1) Intertrochanteric fracture of right hip: Qualifiers: Encounter type: initial encounter Fracture alignment: nondisplaced Fracture type: closed Qualified Code(s): S72.144A - Nondisplaced intertrochanteric fracture of right femur, initial encounter for closed fracture Code(s): S72.141A - Displaced intertrochanteric fracture of right femur, initial encounter for closed fracture Status: Acute (2) Accidental fall: Code(s): W19.XXXA - Unspecified fall, initial encounter Status: Acute (3) UTI (urinary tract infection): Code(s): N39.0 - Urinary tract infection, site not specified Status: Acute (4) Diabetes mellitus with chronic kidney disease: Code(s): E11.22 - Type 2 diabetes mellitus with diabetic chronic kidney disease Status: Acute (5) CKD stage 4 due to type 2 diabetes mellitus: Code(s): E11.22 - Type 2 diabetes mellitus with diabetic chronic kidney disease; N18.4 - Chronic kidney disease, stage 4 (severe) Status: Acute (6) HTN (hypertension): Code(s): I10 - Essential (primary) hypertension Status: Acute Plan right inter trochanter fracture of right hip and fall Patient had a accident fall, sustained right hip pain x-ray shows a right intertrochanteric fracture of right hip s/p Open reduction internal fixation right hip with a trochanteric nail optimize pain management consult PT OT rn transitional care for evaluation and assisting placement Chronic thrombocytopenia Unclear etiologies No active bleeding postop anticoagulation with Xarelto 10 mg daily p.o. per Orthopedic surgery thrombocytopenia stable, no active bleeding consult heme oncologist for evaluation treatment essential hypertension Continue lisinopril 10 mg daily p.o., metoprolol 25 mg daily p.o., controlled type 2 diabetes Continue glargine 20 unit daily Start sliding scale a.c. q.h.s. Hold oral medications glipizide, and Jardiance hyperlipidemia Continue Crestor 22 mg daily CKD stage 3b -4 BUN creatinine on baseline Avoid nephrotoxic medication Gentle IV fluid with normal saline follow-up BMP patient may stay more than 2 midnight hospital discussed with insurance company they recommend discharge patient to use need of with physical therapies Subjective Date/time seen: 04/03/24 07:52 Interval history: I saw and examined patient today, patient feels pain is tolerable, patient denies chest pain shortness breath, headache, focal weakness abdomen pain nausea vomiting. Patient is afebrile, blood pressure stable, no new issue or event overnight. labs reviewed, marginal hemoglobin 11.4, elevated BUN creatinine close to baseline Exam Narrative: GENERAL: Pleasant, in no acute distress. Well-nourished. - EYES: EOMI. Anicteric. - HENT: Moist mucous membranes. - LUNGS: Clear to auscultation bilaterally, no wheezing, rhonchi, or rales. - CARDIOVASCULAR: Regular rate and rhythm. No murmur. No JVD. - ABDOMEN: Soft, non-tender and non-distended. No palpable masses. - EXTREMITIES: No edema. Peripheral pulses 2+. Non-tender. restriction movement of right hip because of pain - NEUROLOGIC: No focal neurological deficits. CN II-XII grossly intact. - PSYCHIATRIC: Awake, Alert and oriented x 3. Appropriate mood and affect. - SKIN: No rashes or lesions. Warm. - LYMPH: No cervical lymphadenopathy. Objective Data Vital Signs Vital Signs: Vital Signs - 24 hr 04/02/24 09:00 04/02/24 09:00 04/02/24 09:36 Temperature Pulse Rate 84 Respiratory Rate Blood Pressure Pulse Oximetry Oxygen Delivery Room Air Room Air 04/02/24 14:00 04/02/24 19:40 04/02/24 22:55 Temperature 97.6 F 98.9 F Pulse Rate 88 87 80 Respiratory Rate 16 18 19 Blood Pressure 136/58 L 92/37 L Pulse Oximetry 92 95 92 Oxygen Delivery Autopap 04/03/24 06:00 Temperature 98.5 F Pulse Rate 80 Respiratory Ra
[2024-04-03 08:15] LABS: Glucose Point of Care 157 mg/dl (65-105)
[2024-04-03 08:47] VITALS: PULSE 80
[2024-04-03] MEDS: EMPAGLIFLOZIN 25 MG TABLET PO (08:47)
[2024-04-03] MEDS: SENNA/DOCUSATE SODIUM TABLET 2 TAB PO ×2 (08:47→17:31)
[2024-04-03] MEDS: FERROUS SULFATE 325 MG TABLET DR PO ×2 (08:47→17:31)
[2024-04-03] MEDS: METOPROLOL SUCCINATE EXT REL 25 MG TABCR PO (08:47)
[2024-04-03] MEDS: CELECOXIB 200 MG CAPSULE PO (08:47)
[2024-04-03] MEDS: ASPIRIN 81 MG ENTERIC TABLET PO (08:48)
[2024-04-03] MEDS: SERTRALINE HCL 50 MG TABLET 100 MG PO (08:48)
[2024-04-03] MEDS: glipiZIDE XL 5 MG TABCR 10 MG PO ×2 (08:49→17:32)
[2024-04-03] MEDS: lisinopriL 10 MG TABLET PO (08:49)
[2024-04-03] MEDS: ROSUVASTATIN 20 MG TABLET 40 MG PO (08:49)
[2024-04-03] MEDS: IRON SUCROSE COMPLEX 500 MG in SODIUM CHLORIDE 0.9% IV 250 ML 79 MG IVPB (08:50)
[2024-04-03] MEDS: INSULIN GLARGINE (*BKC) 100 UNITS/ML 22 UNITS SUB-Q (08:50)
[2024-04-03 09:52] LABS: Basophils Percent Auto 0.4 % (0.2-1.2); Eosinophils Absolute Auto 0.2 K/mm3 (0-0.3); Eosinophils Percent Auto 3.4 % (0-4.4); Hematocrit 28.4 % (37.0-47.0); Hemoglobin 8.8 g/dL (12.0-15.0); Immature Granulocyte Absolute 0.03 K/mm3 (0.00-0.031); Immature Granulocyte Percent A 0.6 % (0-0.5); Lymphocytes Absolute Auto 0.76 K/mm3 (0.9-3.2); Lymphocytes Percent Auto 14.4 % (18.3-44.2); Mean Corpuscular Volume 96.9 fl (80-100); Mean Platelet Volume 11.3 fl (7.4-10.4); Monocytes Absolute Auto 0.4 K/mm3 (0.1-0.6); Monocytes Percent Auto 8.1 % (2.6-8.5); Neutrophils Absolute Auto 3.9 K/mm3 (1.3-6.7); Neutrophils Percent Auto 73.1 % (45.5-73.1); Platelet Count Result 78 k/mm3 (150-375); Red Blood Count 2.93 M/mm3 (4.2-5.4); Red Cell Distribution Width 14.6 % (11.5-14.5); White Blood Count 5.3 K/mm3 (4.5-10.0)
[2024-04-03 10:00] VITALS: PULSE 78; RESP 17; O2SAT 94
[2024-04-03 10:01] LABS: Alanine Aminotransferase 6 U/L (6-35); Alkaline Phosphatase 62 U/L (38-126); Anion Gap 7 mmol/L (4-12); Aspartate Amino Transferase 21 U/L (14-36); Bilirubin,Total 0.5 mg/dL (0.2-1.3); Blood Urea Nitrogen 42 mg/dL (7-17); Carbon Dioxide 21 mmol/L (22-30); Chloride 107 mmol/L (98-107); Estimated CRCL calculation 25 ml/min; Estimated Glomerular Filt Rate 29; Glucose 234 mg/dL (65-110); Potassium 3.8 mmol/L (3.4-5.0); Sodium 135 mmol/L (137-145)
--- NOTE | 2024-04-03 10:27 | PDONCCN ---
HPI - Date of Consult Date/Time: 04/03/24 15:03 <Francisco Baker - 04/03/24 15:07> 04/03/24 10:27 <Chichi Alfredo - 04/03/24 10:28> Requesting Physician: Carolyn Fernandez MD <Francisco Baker - 04/03/24 15:07> Carolyn eFrnandez MD <Chichi Alfredo - 04/03/24 10:28> Primary Care Provider: Winston Guevara MD <Francisco Baker - 04/03/24 15:07> Winston Guevara MD <Chichi Alfredo - 04/03/24 10:28> - Consult Narrative Reason for consult: Thrombocytopenia <Chichi Alfredo - 04/03/24 10:28> Narrative: Rosalina Kenney is a 78 year old female <Francisco Baker - 04/03/24 15:07> Rosalina Kenney is a 78 year old female with a past medical history of HTN, DM, CKD stage 4, HLD, who was admitted s/p a fall with R hip pain. She was found to have a R hip fracture and underwent an open reduction of intertrochanteric fracture. We have been consulted for ongoing thrombocytopenia. She denies any history of low platelet count. She does report a history of CALEB and has been on iron supplements in the past. Per chart review, last colonoscopy was in 2013. She denies any alcohol use. Denies any recent antibiotic use. Denies any frequent diarrhea. Reports a fair appetite, but denies eating alot of red meat. Denies any bleeding or bruising. Labs today are notable for WBC 5.3, Hgb 8.8, Hct 28.4, Plt 78,000, Iron 22 % sat 7 B12 545 Cr 1.70. <Chichi Alfredo - 04/03/24 12:32> Review of Systems - Review of Systems All systems reviewed & are unremarkable except as noted in HPI and bel <Chichi Alfredo - 04/03/24 12:32> - Neurologic Reports system reviewed and no additional complaints, except as documented <Chichi Alfredo - 04/03/24 10:28> PMFSH Medical History: Medical History (Last Reviewed 03/31/24 @ 12:00 by Taras Wild MD) Abscess Acute UTI Anemia Anxiety Arthritis ASHD (arteriosclerotic heart disease) Bilateral carotid bruits Body mass index [BMI] 28.0-28.9, adult Onset Date: 12/18/16 Body mass index [BMI] 29.0-29.9, adult Onset Date: 06/18/16 Body mass index [BMI] 30.0-30.9, adult Onset Date: 12/15/15 Body mass index [BMI] 31.0-31.9, adult Onset Date: 01/06/18 Cellulitis of upper extremity Central sleep apnea Onset Date: ~07/18/23 central sleep apnea index of 4.8 on 07/18/2023. Cerebellar dysfunction Closed fracture of ramus of right pubis with routine healing Closed fracture of right pubis Constipation COPD mixed type Diabetes type 2, controlled Diastolic dysfunction Dysarthria Dysuria Dysuria Encounter to establish care Falls frequently Heart disease Heart murmur Hematuria HLD (hyperlipidemia) HTN (hypertension) HTN (hypertension) Hx of falling Insomnia Kidney disease Left humeral fracture Left leg weakness Multiple thyroid nodules Nasal folliculitis Nausea Neuropathy HELLEN (obstructive sleep apnea) Onset Date: ~07/18/23 Home sleep study 07/18/2023 with AHI of 21.3 with oxygen saturation to 85% with central sleep apnea index of 4.8. Patient needs CPAP titration. 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 Urinary incontinence in female UTI (urinary tract infection) UTI symptoms Vaginal yeast infection <Francisco Baker - 04/03/24 15:07> Medical History (Last Reviewed 03/31/24 @ 12:00 by Taras Wild MD) Abscess Acute UTI Anemia Anxiety Arthritis ASHD (arteriosclerotic heart disease) Bilateral carotid bruits Body mass index [BMI] 28.0-28.9, adult Onset Date: 12/18/16 Body mass index [BMI] 29.0-29.9, adult Onset Date: 06/18/16 Body mass index [BMI] 30.0-30.9, adult Onset Date: 12/15/15 Body mass index [BMI]
[2024-04-03 12:04] LABS: Glucose Point of Care 306 mg/dl (65-105)
[2024-04-03] MEDS: INSULIN ASPART (*BKC) 100 UNITS/ML SUB-Q ×3 (12:16→20:43)
[2024-04-03 14:00] VITALS: BP 128/98; PULSE 78; RESP 18; TEMP 37; O2SAT 95
[2024-04-03 17:13] LABS: Glucose Point of Care 291 mg/dl (65-105)
[2024-04-03] MEDS: MIRTAZAPINE 15 MG TABLET PO (20:40)
[2024-04-03 20:51] LABS: Glucose Point of Care 246 mg/dl (65-105)
[2024-04-03 22:00] VITALS: BP 102/62; PULSE 84; RESP 15; TEMP 36.6; O2SAT 90
[2024-04-04] VITALS (7 sets, daily range): BP systolic 108–132; BP diastolic 44–86; PULSE 70–84; RESP 15–18; TEMP 36.1–36.6; O2SAT 93–100
[2024-04-04] MEDS: SODIUM CHLORIDE 0.9% IV 1,000 ML 100 ML IV CONT ×2 (05:23→20:24)
[2024-04-04] MEDS: ACETAMINOPHEN 325 MG TABLET 650 MG PO ×2 (05:23→12:23)
[2024-04-04 05:31] LABS: Basophils Percent Auto 0.4 % (0.2-1.2); Eosinophils Absolute Auto 0.3 K/mm3 (0-0.3); Eosinophils Percent Auto 7.2 % (0-4.4); Hematocrit 28.9 % (37.0-47.0); Hemoglobin 8.8 g/dL (12.0-15.0); Immature Granulocyte Absolute 0.02 K/mm3 (0.00-0.031); Immature Granulocyte Percent A 0.4 % (0-0.5); Immature Platelet Fraction Pct 4.5 % (0.9-11.2); Lymphocytes Absolute Auto 0.83 K/mm3 (0.9-3.2); Lymphocytes Percent Auto 17.7 % (18.3-44.2); Mean Corpuscular HGB Conc 30.4 g/dl (32-36); Mean Corpuscular Hemoglobin 29.9 pg (26-34); Mean Corpuscular Volume 98.3 fl (80-100); Monocytes Absolute Auto 0.4 K/mm3 (0.1-0.6); Monocytes Percent Auto 9.4 % (2.6-8.5); Neutrophils Absolute Auto 3.1 K/mm3 (1.3-6.7); Neutrophils Percent Auto 64.9 % (45.5-73.1); Platelet Count Result 95 k/mm3 (150-375); Red Blood Count 2.94 M/mm3 (4.2-5.4); Red Cell Distribution Width 14.9 % (11.5-14.5); White Blood Count 4.7 K/mm3 (4.5-10.0)
[2024-04-04 05:50] LABS: Albumin Level 3.2 g/dL (3.5-5.1); Alkaline Phosphatase 66 U/L (38-126); Anion Gap 6 mmol/L (4-12); Aspartate Amino Transferase 23 U/L (14-36); Bilirubin,Total 0.6 mg/dL (0.2-1.3); Blood Urea Nitrogen 39 mg/dL (7-17); Calcium 8.4 mg/dL (8.4-10.2); Carbon Dioxide 20 mmol/L (22-30); Chloride 113 mmol/L (98-107); Estimated CRCL calculation 25 ml/min; Estimated Glomerular Filt Rate 29; Glucose 132 mg/dL (65-110); Potassium 3.7 mmol/L (3.4-5.0); Sodium 139 mmol/L (137-145)
[2024-04-04 06:55] LABS: Alanine Aminotransferase < 6 U/L (6-35)
[2024-04-04 07:22] LABS: Glucose Point of Care 133 mg/dl (65-105)
--- NOTE | 2024-04-04 07:55 | PM.IMPN ---
Progress Note: A&P Assessment and Plan (1) Intertrochanteric fracture of right hip: Qualifiers: Encounter type: initial encounter Fracture alignment: nondisplaced Fracture type: closed Qualified Code(s): S72.144A - Nondisplaced intertrochanteric fracture of right femur, initial encounter for closed fracture Code(s): S72.141A - Displaced intertrochanteric fracture of right femur, initial encounter for closed fracture Status: Acute (2) Accidental fall: Code(s): W19.XXXA - Unspecified fall, initial encounter Status: Acute (3) UTI (urinary tract infection): Code(s): N39.0 - Urinary tract infection, site not specified Status: Acute (4) Diabetes mellitus with chronic kidney disease: Code(s): E11.22 - Type 2 diabetes mellitus with diabetic chronic kidney disease Status: Acute (5) CKD stage 4 due to type 2 diabetes mellitus: Code(s): E11.22 - Type 2 diabetes mellitus with diabetic chronic kidney disease; N18.4 - Chronic kidney disease, stage 4 (severe) Status: Acute (6) HTN (hypertension): Code(s): I10 - Essential (primary) hypertension Status: Acute Plan right inter trochanter fracture of right hip and fall Patient had a accident fall, sustained right hip pain x-ray shows a right intertrochanteric fracture of right hip s/p Open reduction internal fixation right hip with a trochanteric nail optimize pain management consult PT OT skin care consultant for evaluation and assisting placement Chronic thrombocytopenia Unclear etiologies No active bleeding postop anticoagulation with Xarelto 10 mg daily p.o. per Orthopedic surgery thrombocytopenia stable, no active bleeding consult heme oncologist for evaluation treatment essential hypertension Continue lisinopril 10 mg daily p.o., metoprolol 25 mg daily p.o., controlled type 2 diabetes Continue glargine 20 unit daily Start sliding scale a.c. q.h.s. Hold oral medications glipizide, and Jardiance hyperlipidemia Continue Crestor 22 mg daily CKD stage 3b -4 BUN creatinine on baseline Avoid nephrotoxic medication Gentle IV fluid with normal saline follow-up BMP patient may stay more than 2 midnight hospital discussed with insurance company they recommend discharge patient to SNF for physical therapies. patient is ready to be discharged, waiting for placement Subjective Date/time seen: 04/04/24 07:55 Interval history: I saw and examined patient today, patient feels pain is tolerable, patient denies chest pain shortness breath, headache, focal weakness abdomen pain nausea vomiting. Patient is afebrile, blood pressure stable, no new issue or event overnight. Exam Narrative: GENERAL: Pleasant, in no acute distress. Well-nourished. - EYES: EOMI. Anicteric. - HENT: Moist mucous membranes. - LUNGS: Clear to auscultation bilaterally, no wheezing, rhonchi, or rales. - CARDIOVASCULAR: Regular rate and rhythm. No murmur. No JVD. - ABDOMEN: Soft, non-tender and non-distended. No palpable masses. - EXTREMITIES: No edema. Peripheral pulses 2+. Non-tender. restriction movement of right hip because of pain - NEUROLOGIC: No focal neurological deficits. CN II-XII grossly intact. - PSYCHIATRIC: Awake, Alert and oriented x 3. Appropriate mood and affect. - SKIN: No rashes or lesions. Warm. - LYMPH: No cervical lymphadenopathy. Objective Data Vital Signs Vital Signs: Vital Signs - 24 hr 04/03/24 08:47 04/03/24 08:45 04/03/24 14:00 Temperature 98.6 F Pulse Rate 80 78 Respiratory Rate 18 Blood Pressure 128/98 H Pulse Oximetry 95 Oxygen Delivery Room Air 04/03/24 20:00 04/03/24 22:00 04/03/24 10:00 Temperature 97.8 F Pulse Rate 84 78 Respiratory Rate 15 17 Blood Pressure 102/62 Pulse Oximetry 90 94 Oxygen Delivery Room Air Autopap 04/04/24 02:44 04/04/24 06:00 Temperature 97.8 F Pulse Rate 72 84 Respiratory Rate 15 Blood
[2024-04-04] MEDS: IBUPROFEN IV 800 MG/200 ML 800 MG/200 ML BAG 400 MG IVPB ×2 (09:07→20:25)
[2024-04-04] MEDS: INSULIN GLARGINE (*BKC) 100 UNITS/ML 22 UNITS SUB-Q (09:09)
[2024-04-04] MEDS: METOPROLOL SUCCINATE EXT REL 25 MG TABCR PO (09:12)
[2024-04-04] MEDS: SENNA/DOCUSATE SODIUM TABLET 2 TAB PO (09:12)
[2024-04-04] MEDS: lisinopriL 10 MG TABLET PO (09:13)
[2024-04-04] MEDS: ROSUVASTATIN 20 MG TABLET 40 MG PO (09:13)
[2024-04-04] MEDS: CELECOXIB 200 MG CAPSULE PO (09:13)
[2024-04-04] MEDS: glipiZIDE XL 5 MG TABCR 10 MG PO ×2 (09:52→16:47)
[2024-04-04] MEDS: EMPAGLIFLOZIN 25 MG TABLET PO (09:53)
[2024-04-04] MEDS: ASPIRIN 81 MG ENTERIC TABLET PO (09:53)
[2024-04-04] MEDS: FERROUS SULFATE 325 MG TABLET DR PO ×2 (09:53→16:45)
[2024-04-04] MEDS: SERTRALINE HCL 50 MG TABLET 100 MG PO (09:59)
[2024-04-04] MEDS: polyethylene glycoL 3350 17 GM POWD.PACK PO (10:04)
[2024-04-04 11:40] LABS: Glucose Point of Care 271 mg/dl (65-105)
[2024-04-04] MEDS: INSULIN ASPART (*BKC) 100 UNITS/ML SUB-Q ×3 (11:43→20:44)
--- NOTE | 2024-04-04 14:48 | PM.PNORT ---
Progress Note: A&P Assessment and Plan (1) Intertrochanteric fracture of right hip: Qualifiers: Encounter type: initial encounter Fracture alignment: nondisplaced Fracture type: closed Qualified Code(s): S72.144A - Nondisplaced intertrochanteric fracture of right femur, initial encounter for closed fracture Code(s): S72.141A - Displaced intertrochanteric fracture of right femur, initial encounter for closed fracture Status: Acute Plan S/P ORIF IT FX RIGHT. Progressing slowly. Rehab vs NH Subjective Subjective Date/Time Seen: 04/04/24 14:48 Post Op day: 3 Principal diagnosis: S/P ORIF for Right Intertrochanteric Hip Fx Review of Systems Musculoskeletal: Musculoskeletal: Reports myalgias, Reports arthralgias, Reports joint swelling and Reports stiffness Exam Narrative: Wiggles toes. Pain tolerable Objective Data Vital Signs Vital Signs: Vital Signs - 24 hr 04/03/24 20:00 04/03/24 22:00 04/04/24 02:44 Temperature 97.8 F Pulse Rate 84 72 Respiratory Rate 15 Blood Pressure 102/62 Pulse Oximetry 90 94 Oxygen Delivery Room Air Autopap 04/04/24 06:00 04/04/24 09:12 04/04/24 08:00 Temperature 97.8 F Pulse Rate 84 84 Respiratory Rate 15 Blood Pressure 131/53 L Pulse Oximetry 100 Oxygen Delivery Room Air 04/04/24 14:00 Temperature 97.0 F L Pulse Rate 83 Respiratory Rate 18 Blood Pressure 108/86 Pulse Oximetry 93 Oxygen Delivery Intake/Output Intake/Output: Intake & Output 04/01/24 04/02/24 04/03/24 04/04/24 23:59 23:59 23:59 23:59 Intake Total 1600 1840 3270 2864.3 Output Total 1600 Balance 0 1840 3270 2864.3 Meds/Results Medications: Active Medications Generic Name Dose Route Start Last Admin Trade Name Freq PRN Reason Stop Dose Admin Acetaminophen 650 mg 04/01/24 18:00 04/04/24 12:23 Acetaminophen 325 Mg Tablet PO 650 mg Q6HR MATILDE Administration Hydrocodone Bitart/Acetaminophen 1 tab 04/01/24 16:47 04/02/24 09:07 Hydrocodone/Acetaminophen (*Crx) 5-325 Mg Tablet PO 1 tab Q4H PRN Administration Pain Rated 4-6 Hydrocodone Bitart/Acetaminophen 1 tab 04/01/24 16:47 04/02/24 02:56 Hydrocodone/Acetaminophen (*Crx) 7.5-325 Mg Tablet PO 1 tab Q4H PRN Administration Pain Rated 7-10 Aspirin 81 mg 04/02/24 09:00 04/04/24 09:53 Aspirin 81 Mg Enteric Tablet PO 81 mg DAILY MATILDE Administration Celecoxib 200 mg 04/02/24 08:00 04/04/24 09:13 Celecoxib 200 Mg Capsule PO 200 mg DAILY@0800 MATILDE Administration Cyclobenzaprine HCl 10 mg 04/01/24 16:47 Cyclobenzaprine Hcl 10 Mg Tablet PO Q8H PRN Muscle Spasm Dextrose 12.5 gm 04/01/24 17:32 Dextrose 50% 25 Gm/50 Ml Syringe IV PUSH PRN PRN Hypoglycemia Protocol Empagliflozin 25 mg 04/02/24 09:00 04/04/24 09:53 Empagliflozin 25 Mg Tablet PO 25 mg DAILY MATILDE Administration Ferrous Sulfate 325 mg 04/03/24 09:00 04/04/24 09:53 Ferrous Sulfate [address] PO 325 mg BID MATILDE Administration Glipizide 10 mg 04/01/24 17:00 04/04/24 09:52 Glipizide Xl 5 Mg Tabcr PO 10 mg BID MATILDE Administration Glucose 15 gm 04/01/24 17:32 Glucose Oral Gel 15 Gm Of Glucse In 37.5 Gm Tube PO PRN PRN Hypoglycemia Protocol Hydromorphone HCl 1 mg 04/01/24 16:47 Hydromorphone Hcl Inj (*Crx) 1 Mg/Ml Syr IV PUSH Q2H PRN Breakthrough Pain Rated 7-10 or NPO Hydromorphone HCl 0.5 mg 04/01/24 16:47 Hydromorphone Hcl Inj (*Crx) 1 Mg/Ml Syr IV PUSH Q2H PRN Breakthrough Pain Rated 4-6 or NPO Hydroxyzine Pamoate 50 mg 04/01/24 16:47 Hydroxyzine Pamoate 25 Mg Capsule PO Q4H PRN Itching Ibuprofen 800 mg in 200 mls @ 400 mls/hr 04/01/24 16:47 04/04/24 09:37 Caldolor 800 Mg/200 Ml IVPB Infused Q6H PRN Infusion Breakthrough Pain Rated 1-3 or NPO Dextrose 1,000 mls @ 100 mls/hr 04/01/24 17:32 Dextrose 5% 1
[2024-04-04 16:42] LABS: Glucose Point of Care 231 mg/dl (65-105)
[2024-04-04] MEDS: RIVAROXABAN 10 MG TABLET PO (16:44)
[2024-04-04] MEDS: MIRTAZAPINE 15 MG TABLET PO (20:29)
[2024-04-04] MEDS: CYCLOBENZAPRINE HCL 10 MG TABLET PO (20:29)
[2024-04-05] MEDS: ACETAMINOPHEN 325 MG TABLET 650 MG PO ×4 (00:07→17:22)
[2024-04-05 05:42] LABS: Basophils Percent Auto 0.4 % (0.2-1.2); Eosinophils Absolute Auto 0.3 K/mm3 (0-0.3); Hematocrit 32.2 % (37.0-47.0); Immature Granulocyte Absolute 0.04 K/mm3 (0.00-0.031); Immature Granulocyte Percent A 0.9 % (0-0.5); Immature Platelet Fraction Pct 3.3 % (0.9-11.2); Lymphocytes Absolute Auto 1.12 K/mm3 (0.9-3.2); Lymphocytes Percent Auto 24.5 % (18.3-44.2); Mean Corpuscular HGB Conc 31.1 g/dl (32-36); Mean Corpuscular Hemoglobin 30.3 pg (26-34); Mean Corpuscular Volume 97.6 fl (80-100); Mean Platelet Volume 10.4 fl (7.4-10.4); Monocytes Absolute Auto 0.4 K/mm3 (0.1-0.6); Neutrophils Absolute Auto 2.7 K/mm3 (1.3-6.7); Neutrophils Percent Auto 58.2 % (45.5-73.1); Platelet Count Result 113 k/mm3 (150-375); White Blood Count 4.6 K/mm3 (4.5-10.0)
[2024-04-05 06:00] VITALS: BP 132/73; PULSE 71; RESP 15; TEMP 36.6; O2SAT 98
[2024-04-05 06:00] LABS: Alanine Aminotransferase 7 U/L (6-35); Albumin Level 3.3 g/dL (3.5-5.1); Alkaline Phosphatase 72 U/L (38-126); Anion Gap 6 mmol/L (4-12); Aspartate Amino Transferase 24 U/L (14-36); Bilirubin,Total 0.6 mg/dL (0.2-1.3); Blood Urea Nitrogen 28 mg/dL (7-17); Calcium 8.6 mg/dL (8.4-10.2); Carbon Dioxide 23 mmol/L (22-30); Chloride 112 mmol/L (98-107); Estimated CRCL calculation 28 ml/min; Estimated Glomerular Filt Rate 34; Glucose 96 mg/dL (65-110); Potassium 3.3 mmol/L (3.4-5.0); Sodium 141 mmol/L (137-145)
[2024-04-05 08:09] LABS: Glucose Point of Care 108 mg/dl (65-105)
[2024-04-05 08:53] VITALS: PULSE 70
[2024-04-05] MEDS: glipiZIDE XL 5 MG TABCR 10 MG PO ×2 (08:53→17:21)
[2024-04-05] MEDS: FERROUS SULFATE 325 MG TABLET DR PO ×2 (08:53→17:21)
[2024-04-05] MEDS: CELECOXIB 200 MG CAPSULE PO (08:53)
[2024-04-05] MEDS: lisinopriL 10 MG TABLET PO (08:53)
[2024-04-05] MEDS: SERTRALINE HCL 50 MG TABLET 100 MG PO (08:53)
[2024-04-05] MEDS: METOPROLOL SUCCINATE EXT REL 25 MG TABCR PO (08:53)
[2024-04-05] MEDS: ASPIRIN 81 MG ENTERIC TABLET PO (08:53)
[2024-04-05] MEDS: EMPAGLIFLOZIN 25 MG TABLET PO (08:54)
[2024-04-05] MEDS: ROSUVASTATIN 20 MG TABLET 40 MG PO (08:54)
[2024-04-05] MEDS: polyethylene glycoL 3350 17 GM POWD.PACK PO (09:01)
[2024-04-05] MEDS: SENNA/DOCUSATE SODIUM TABLET 2 TAB PO ×2 (09:01→17:21)
[2024-04-05] MEDS: POTASSIUM CHLORIDE 20 MEQ PACKET (FOR LIQUID) 40 MEQ PO (09:01)
[2024-04-05] MEDS: INSULIN GLARGINE (*BKC) 100 UNITS/ML 22 UNITS SUB-Q (09:03)
--- NOTE | 2024-04-05 11:10 | PM.IMPN ---
Progress Note: A&P Assessment and Plan (1) Intertrochanteric fracture of right hip: Qualifiers: Encounter type: initial encounter Fracture alignment: nondisplaced Fracture type: closed Qualified Code(s): S72.144A - Nondisplaced intertrochanteric fracture of right femur, initial encounter for closed fracture Code(s): S72.141A - Displaced intertrochanteric fracture of right femur, initial encounter for closed fracture Status: Acute (2) Accidental fall: Code(s): W19.XXXA - Unspecified fall, initial encounter Status: Acute (3) UTI (urinary tract infection): Code(s): N39.0 - Urinary tract infection, site not specified Status: Ruled-out (4) Diabetes mellitus with chronic kidney disease: Code(s): E11.22 - Type 2 diabetes mellitus with diabetic chronic kidney disease Status: Chronic (5) CKD stage 4 due to type 2 diabetes mellitus: Code(s): E11.22 - Type 2 diabetes mellitus with diabetic chronic kidney disease; N18.4 - Chronic kidney disease, stage 4 (severe) Status: Chronic (6) HTN (hypertension): Code(s): I10 - Essential (primary) hypertension Status: Chronic (7) Thrombocythemia: Code(s): D75.839 - Thrombocytosis, unspecified Status: Acute (8) Anemia: Code(s): D64.9 - Anemia, unspecified Status: Acute Assessment and Plan: IV and oral iron per heme Onc (9) HELLEN (obstructive sleep apnea): Onset Date: ~07/18/23 Code(s): G47.33 - Obstructive sleep apnea (adult) (pediatric) Status: Acute Assessment and Plan: Stable with use of CPAP Plan right inter trochanter fracture of right hip and fall Patient had a accident fall, sustained right hip pain x-ray shows a right intertrochanteric fracture of right hip s/p Open reduction internal fixation right hip with a trochanteric nail optimize pain management consult PT OT rn complex care for evaluation and assisting placement Chronic thrombocytopenia Unclear etiologies No active bleeding postop anticoagulation with Xarelto 10 mg daily p.o. per Orthopedic surgery thrombocytopenia stable, no active bleeding consult heme oncologist for evaluation treatment essential hypertension Continue lisinopril 10 mg daily p.o., metoprolol XL 25 mg daily p.o., controlled type 2 diabetes Continue glargine 22 unit daily Start sliding scale a.c. q.h.s. Continue Jardiance and glipizide hyperlipidemia Continue Crestor 40 mg daily CKD stage 3b -4 BUN creatinine on baseline Avoid nephrotoxic medication Daily labs Placement pending--[facility] denial appealed, SNF recommended by Insurance Company Time Spent With Patient Time with patient: Greater than 35 minutes Subjective Date/time seen: 04/05/24 11:10 Interval history: Patient feeling well except right leg pain. Hemoglobin and platelets slightly improved today. Insurance wants patient to go to SNF on discharge, appeal in process trying to get patient to [facility]. Hematology saw patient and ordered IV and oral iron. She will have further testing for thrombocytopenia at follow-up in the clinic. Review of Systems Review of Systems: All systems reviewed & are unremarkable except as noted in HPI and below Exam Narrative: GENERAL: Pleasant, in no acute distress. Well-nourished. - EYES: EOMI. Anicteric. - HENT: Moist mucous membranes. - LUNGS: Clear to auscultation bilaterally, no wheezing, rhonchi, or rales. - CARDIOVASCULAR: Regular rate and rhythm. No murmur. No JVD. - ABDOMEN: Soft, non-tender and non-distended. No palpable masses. - EXTREMITIES: No edema. Peripheral pulses 2+. Non-tender. restriction movement of right hip because of pain - NEUROLOGIC: No focal neurological deficits. CN II-XII grossly intact. - PSYCHIATRIC: Awake, Alert and oriented x 3. Appropriate mood and affect. - SKIN: No rashes or lesions. Warm. - LYMPH: No cervical lymphadenopa
[2024-04-05 11:53] LABS: Glucose Point of Care 268 mg/dl (65-105)
[2024-04-05] MEDS: INSULIN ASPART (*BKC) 100 UNITS/ML SUB-Q ×3 (12:40→21:07)
[2024-04-05 14:00] VITALS: BP 132/54; PULSE 76; RESP 20; TEMP 36.6; O2SAT 98
[2024-04-05 16:47] LABS: Glucose Point of Care 206 mg/dl (65-105)
[2024-04-05] MEDS: RIVAROXABAN 10 MG TABLET PO (17:21)
[2024-04-05 20:00] VITALS: PULSE 83; RESP 15; O2SAT 98
[2024-04-05 20:33] LABS: Glucose Point of Care 218 mg/dl (65-105)
[2024-04-05] MEDS: IBUPROFEN IV 800 MG/200 ML 800 MG/200 ML BAG 400 MG IVPB (21:09)
[2024-04-05] MEDS: CYCLOBENZAPRINE HCL 10 MG TABLET PO (21:09)
[2024-04-05] MEDS: MIRTAZAPINE 15 MG TABLET PO (21:09)
[2024-04-05 21:38] VITALS: BP 130/45; PULSE 83; RESP 15; TEMP 36.6; O2SAT 98
[2024-04-06] VITALS (8 sets, daily range): BP systolic 113–138; BP diastolic 44–45; PULSE 74–79; RESP 14–18; TEMP 36.3–37; O2SAT 94–98
[2024-04-06 05:28] LABS: Basophils Percent Auto 0.3 % (0.2-1.2); Eosinophils Absolute Auto 0.2 K/mm3 (0-0.3); Eosinophils Percent Auto 5.8 % (0-4.4); Hematocrit 26.5 % (37.0-47.0); Hemoglobin 8.3 g/dL (12.0-15.0); Immature Granulocyte Absolute 0.02 K/mm3 (0.00-0.031); Immature Granulocyte Percent A 0.6 % (0-0.5); Immature Platelet Fraction Pct 2.8 % (0.9-11.2); Lymphocytes Absolute Auto 0.77 K/mm3 (0.9-3.2); Lymphocytes Percent Auto 23.4 % (18.3-44.2); Mean Corpuscular HGB Conc 31.3 g/dl (32-36); Mean Corpuscular Hemoglobin 30.7 pg (26-34); Mean Corpuscular Volume 98.1 fl (80-100); Mean Platelet Volume 10.6 fl (7.4-10.4); Monocytes Absolute Auto 0.4 K/mm3 (0.1-0.6); Monocytes Percent Auto 10.9 % (2.6-8.5); Neutrophils Absolute Auto 1.9 K/mm3 (1.3-6.7); Nucleated Red Blood Cells Perc 0.6 % (0.0-0.2); Platelet Count Result 106 k/mm3 (150-375); Red Cell Distribution Width 15.2 % (11.5-14.5); White Blood Count 3.3 K/mm3 (4.5-10.0)
[2024-04-06 05:44] LABS: Alanine Aminotransferase 8 U/L (6-35); Albumin Level 2.8 g/dL (3.5-5.1); Alkaline Phosphatase 72 U/L (38-126); Anion Gap 5 mmol/L (4-12); Aspartate Amino Transferase 28 U/L (14-36); Bilirubin,Total 0.6 mg/dL (0.2-1.3); Blood Urea Nitrogen 29 mg/dL (7-17); Calcium 8.5 mg/dL (8.4-10.2); Carbon Dioxide 21 mmol/L (22-30); Chloride 115 mmol/L (98-107); Estimated CRCL calculation 28 ml/min; Estimated Glomerular Filt Rate 34; Glucose 135 mg/dL (65-110); Potassium 3.7 mmol/L (3.4-5.0); Sodium 141 mmol/L (137-145)
[2024-04-06] MEDS: ACETAMINOPHEN 325 MG TABLET 650 MG PO ×3 (06:22→17:28)
--- NOTE | 2024-04-06 06:56 | PM.PNORT ---
Progress Note: A&P Assessment and Plan (1) Intertrochanteric fracture of right hip: Qualifiers: Encounter type: initial encounter Fracture alignment: nondisplaced Fracture type: closed Qualified Code(s): S72.144A - Nondisplaced intertrochanteric fracture of right femur, initial encounter for closed fracture Code(s): S72.141A - Displaced intertrochanteric fracture of right femur, initial encounter for closed fracture Status: Acute Assessment and Plan: S/P ORIF Right Hip. Doing well. To rehab. F/U 2 weeks for sutures out. Subjective Subjective Date/Time Seen: 04/06/24 06:56 Post Op day: 5 Principal diagnosis: Right IT Fx Review of Systems Musculoskeletal: Musculoskeletal: Reports myalgias, Reports arthralgias, Reports joint swelling and Reports stiffness Exam Narrative: NVI. Wound clean Objective Data Vital Signs Vital Signs: Vital Signs - 24 hr 04/05/24 08:53 04/05/24 08:00 04/05/24 14:00 Temperature 98 F Pulse Rate 70 76 Respiratory Rate 20 Blood Pressure 132/54 L Pulse Oximetry 98 Oxygen Delivery Room Air 04/05/24 21:38 04/05/24 20:00 04/06/24 00:10 Temperature 97.8 F Pulse Rate 83 83 74 Respiratory Rate 15 15 17 Blood Pressure 130/45 L Pulse Oximetry 98 98 94 Oxygen Delivery Room Air Autopap 04/06/24 06:00 Temperature 97.8 F Pulse Rate 77 Respiratory Rate 15 Blood Pressure 113/45 L Pulse Oximetry 98 Oxygen Delivery Intake/Output Intake/Output: Intake & Output 04/03/24 04/04/24 04/05/24 04/06/24 23:59 23:59 23:59 23:59 Intake Total 3270 4544.3 740 375 Balance 3270 4544.3 740 375 Meds/Results Medications: Active Medications Generic Name Dose Route Start Last Admin Trade Name Freq PRN Reason Stop Dose Admin Acetaminophen 650 mg 04/01/24 18:00 04/06/24 06:22 Acetaminophen 325 Mg Tablet PO 650 mg Q6HR MATILDE Administration Hydrocodone Bitart/Acetaminophen 1 tab 04/01/24 16:47 04/02/24 09:07 Hydrocodone/Acetaminophen (*Crx) 5-325 Mg Tablet PO 1 tab Q4H PRN Administration Pain Rated 4-6 Hydrocodone Bitart/Acetaminophen 1 tab 04/01/24 16:47 04/02/24 02:56 Hydrocodone/Acetaminophen (*Crx) 7.5-325 Mg Tablet PO 1 tab Q4H PRN Administration Pain Rated 7-10 Aspirin 81 mg 04/02/24 09:00 04/05/24 08:53 Aspirin 81 Mg Enteric Tablet PO 81 mg DAILY MATILDE Administration Celecoxib 200 mg 04/02/24 08:00 04/05/24 08:53 Celecoxib 200 Mg Capsule PO 200 mg DAILY@0800 MATILDE Administration Cyclobenzaprine HCl 10 mg 04/01/24 16:47 04/05/24 21:09 Cyclobenzaprine Hcl 10 Mg Tablet PO 10 mg Q8H PRN Administration Muscle Spasm Dextrose 12.5 gm 04/01/24 17:32 Dextrose 50% 25 Gm/50 Ml Syringe IV PUSH PRN PRN Hypoglycemia Protocol Empagliflozin 25 mg 04/02/24 09:00 04/05/24 08:54 Empagliflozin 25 Mg Tablet PO 25 mg DAILY MATILDE Administration Ferrous Sulfate 325 mg 04/03/24 09:00 04/05/24 17:21 Ferrous Sulfate [address] PO 325 mg BID MATILDE Administration Glipizide 10 mg 04/01/24 17:00 04/05/24 17:21 Glipizide Xl 5 Mg Tabcr PO 10 mg BID MATILDE Administration Glucose 15 gm 04/01/24 17:32 Glucose Oral Gel 15 Gm Of Glucse In 37.5 Gm Tube PO PRN PRN Hypoglycemia Protocol Hydromorphone HCl 1 mg 04/01/24 16:47 Hydromorphone Hcl Inj (*Crx) 1 Mg/Ml Syr IV PUSH Q2H PRN Breakthrough Pain Rated 7-10 or NPO Hydromorphone HCl 0.5 mg 04/01/24 16:47 Hydromorphone Hcl Inj (*Crx) 1 Mg/Ml Syr IV PUSH Q2H PRN Breakthrough Pain Rated 4-6 or NPO Hydroxyzine Pamoate 50 mg 04/01/24 16:47 Hydroxyzine Pamoate 25 Mg Capsule PO Q4H PRN Itching Ibuprofen 800 mg in 200 mls @ 400 mls/hr 04/01/24 16:47 04/05/24 21:09 Caldolor 800 Mg/200 Ml IVPB 400 mls/hr Q6H PRN Administration Breakthrough Pain Rated 1-3 or NPO Dextrose 1,000 mls @ 100 mls/hr 04/01/24
[2024-04-06 08:24] LABS: Glucose Point of Care 143 mg/dl (65-105)
[2024-04-06] MEDS: CELECOXIB 200 MG CAPSULE PO (08:44)
[2024-04-06] MEDS: ROSUVASTATIN 20 MG TABLET 40 MG PO (08:45)
[2024-04-06] MEDS: SERTRALINE HCL 50 MG TABLET 100 MG PO (08:45)
[2024-04-06] MEDS: lisinopriL 10 MG TABLET PO (08:46)
[2024-04-06] MEDS: METOPROLOL SUCCINATE EXT REL 25 MG TABCR PO (08:46)
[2024-04-06] MEDS: EMPAGLIFLOZIN 25 MG TABLET PO (08:46)
[2024-04-06] MEDS: FERROUS SULFATE 325 MG TABLET DR PO ×2 (08:46→16:51)
[2024-04-06] MEDS: SENNA/DOCUSATE SODIUM TABLET 2 TAB PO (08:46)
[2024-04-06] MEDS: glipiZIDE XL 5 MG TABCR 10 MG PO ×2 (08:47→16:51)
[2024-04-06] MEDS: ASPIRIN 81 MG ENTERIC TABLET PO (08:47)
[2024-04-06] MEDS: INSULIN GLARGINE (*BKC) 100 UNITS/ML 22 UNITS SUB-Q (08:50)
--- NOTE | 2024-04-06 10:53 | PM.IMPN ---
Progress Note: A&P Assessment and Plan (1) Intertrochanteric fracture of right hip: Qualifiers: Encounter type: initial encounter Fracture alignment: nondisplaced Fracture type: closed Qualified Code(s): S72.144A - Nondisplaced intertrochanteric fracture of right femur, initial encounter for closed fracture Code(s): S72.141A - Displaced intertrochanteric fracture of right femur, initial encounter for closed fracture Status: Acute (2) Accidental fall: Code(s): W19.XXXA - Unspecified fall, initial encounter Status: Acute (3) UTI (urinary tract infection): Code(s): N39.0 - Urinary tract infection, site not specified Status: Ruled-out (4) Diabetes mellitus with chronic kidney disease: Code(s): E11.22 - Type 2 diabetes mellitus with diabetic chronic kidney disease Status: Chronic (5) CKD stage 4 due to type 2 diabetes mellitus: Code(s): E11.22 - Type 2 diabetes mellitus with diabetic chronic kidney disease; N18.4 - Chronic kidney disease, stage 4 (severe) Status: Chronic (6) HTN (hypertension): Code(s): I10 - Essential (primary) hypertension Status: Chronic (7) Thrombocythemia: Code(s): D75.839 - Thrombocytosis, unspecified Status: Acute (8) Anemia: Code(s): D64.9 - Anemia, unspecified Status: Acute Assessment and Plan: IV and oral iron per heme Onc (9) HELLEN (obstructive sleep apnea): Onset Date: ~07/18/23 Code(s): G47.33 - Obstructive sleep apnea (adult) (pediatric) Status: Acute Assessment and Plan: Stable with use of CPAP Plan right inter trochanter fracture of right hip and fall Patient had a accident fall, sustained right hip pain x-ray shows a right intertrochanteric fracture of right hip s/p Open reduction internal fixation right hip with a trochanteric nail optimize pain management consult PT OT managed care analyst for evaluation and assisting placement Chronic thrombocytopenia Unclear etiologies No active bleeding postop anticoagulation with Xarelto 10 mg daily p.o. per Orthopedic surgery thrombocytopenia stable, no active bleeding consult heme oncologist for evaluation treatment essential hypertension Continue lisinopril 10 mg daily p.o., metoprolol XL 25 mg daily p.o., controlled type 2 diabetes Continue glargine 22 unit daily Start sliding scale a.c. q.h.s. Continue Jardiance and glipizide hyperlipidemia Continue Crestor 40 mg daily CKD stage 3b -4 BUN creatinine on baseline Avoid nephrotoxic medication Daily labs Placement pending--[facility] denial appealed, SNF recommended by Insurance Company Time Spent With Patient Time with patient: 25 - 35 minutes Subjective Date/time seen: 04/06/24 10:53 Interval history: Patient reports that her right leg is feeling better today. She is awaiting insurance authorization/appeal for [facility] or will need SNF authorization. No acute changes. Hemoglobin down slightly 8.3 white blood cell count down slightly 3.3 platelets down a little bit from yesterday at 1:06 a.m.. Review of Systems Review of Systems: All systems reviewed & are unremarkable except as noted in HPI and below Exam Narrative: GENERAL: Pleasant, in no acute distress. Well-nourished. - EYES: EOMI. Anicteric. - HENT: Moist mucous membranes. - LUNGS: Clear to auscultation bilaterally, no wheezing, rhonchi, or rales. - CARDIOVASCULAR: Regular rate and rhythm. No murmur. No JVD. - ABDOMEN: Soft, non-tender and non-distended. No palpable masses. - EXTREMITIES: No edema. Peripheral pulses 2+. Non-tender. restriction movement of right hip because of pain - NEUROLOGIC: No focal neurological deficits. CN II-XII grossly intact. - PSYCHIATRIC: Awake, Alert and oriented x 3. Appropriate mood and affect. - SKIN: No rashes or lesions. Warm. - LYMPH: No cervical lymphadenopathy. Objective Data Vital Signs Vital Signs: Vital Si
[2024-04-06 11:48] LABS: Glucose Point of Care 196 mg/dl (65-105)
[2024-04-06 16:41] LABS: Glucose Point of Care 206 mg/dl (65-105)
[2024-04-06] MEDS: INSULIN ASPART (*BKC) 100 UNITS/ML SUB-Q ×2 (16:49→20:33)
[2024-04-06] MEDS: RIVAROXABAN 10 MG TABLET PO (16:51)
[2024-04-06] MEDS: CYCLOBENZAPRINE HCL 10 MG TABLET PO (20:29)
[2024-04-06] MEDS: MIRTAZAPINE 15 MG TABLET PO (20:29)
[2024-04-06 20:50] LABS: Glucose Point of Care 249 mg/dl (65-105)
[2024-04-06 21:09] LABS: Glucose Point of Care 226 mg/dl (65-105)
[2024-04-06 23:14] LABS: Platelet Antibody, Direct NEGATIVE (NEGATIVE)
[2024-04-07] MEDS: ACETAMINOPHEN 325 MG TABLET 650 MG PO ×4 (00:04→17:07)
[2024-04-07 02:53] VITALS: PULSE 75; RESP 10; O2SAT 98
[2024-04-07 05:47] LABS: Basophils Percent Auto 0.8 % (0.2-1.2); Eosinophils Absolute Auto 0.2 K/mm3 (0-0.3); Eosinophils Percent Auto 5.5 % (0-4.4); Hematocrit 29.5 % (37.0-47.0); Hemoglobin 9.3 g/dL (12.0-15.0); Immature Granulocyte Absolute 0.03 K/mm3 (0.00-0.031); Immature Granulocyte Percent A 0.8 % (0-0.5); Lymphocytes Absolute Auto 1.01 K/mm3 (0.9-3.2); Lymphocytes Percent Auto 25.3 % (18.3-44.2); Mean Corpuscular HGB Conc 31.5 g/dl (32-36); Mean Corpuscular Hemoglobin 30.7 pg (26-34); Mean Corpuscular Volume 97.4 fl (80-100); Mean Platelet Volume 10.1 fl (7.4-10.4); Monocytes Absolute Auto 0.4 K/mm3 (0.1-0.6); Monocytes Percent Auto 9.5 % (2.6-8.5); Neutrophils Absolute Auto 2.3 K/mm3 (1.3-6.7); Neutrophils Percent Auto 58.1 % (45.5-73.1); Platelet Count Result 120 k/mm3 (150-375); Red Blood Count 3.03 M/mm3 (4.2-5.4); Red Cell Distribution Width 15.8 % (11.5-14.5)
[2024-04-07 05:50] LABS: Alanine Aminotransferase 16 U/L (6-35); Albumin Level 3.3 g/dL (3.5-5.1); Alkaline Phosphatase 81 U/L (38-126); Anion Gap 7 mmol/L (4-12); Aspartate Amino Transferase 39 U/L (14-36); Bilirubin,Total 0.7 mg/dL (0.2-1.3); Blood Urea Nitrogen 26 mg/dL (7-17); Calcium 8.9 mg/dL (8.4-10.2); Carbon Dioxide 22 mmol/L (22-30); Chloride 111 mmol/L (98-107); Estimated CRCL calculation 28 ml/min; Estimated Glomerular Filt Rate 34; Glucose 146 mg/dL (65-110); Potassium 3.9 mmol/L (3.4-5.0); Sodium 140 mmol/L (137-145)
[2024-04-07 06:00] VITALS: BP 138/41; PULSE 80; RESP 15; TEMP 36.3; O2SAT 99
[2024-04-07 08:07] LABS: Glucose Point of Care 148 mg/dl (65-105)
[2024-04-07] MEDS: SENNA/DOCUSATE SODIUM TABLET 2 TAB PO ×2 (08:39→17:07)
[2024-04-07] MEDS: ROSUVASTATIN 20 MG TABLET 40 MG PO (08:39)
[2024-04-07] MEDS: ASPIRIN 81 MG ENTERIC TABLET PO (08:40)
[2024-04-07] MEDS: FERROUS SULFATE 325 MG TABLET DR PO ×2 (08:40→17:07)
[2024-04-07] MEDS: lisinopriL 10 MG TABLET PO (08:41)
[2024-04-07] MEDS: SERTRALINE HCL 50 MG TABLET 100 MG PO (08:41)
[2024-04-07] MEDS: glipiZIDE XL 5 MG TABCR 10 MG PO ×2 (08:41→17:07)
[2024-04-07 08:50] VITALS: PULSE 80
[2024-04-07] MEDS: EMPAGLIFLOZIN 25 MG TABLET PO (08:50)
[2024-04-07] MEDS: METOPROLOL SUCCINATE EXT REL 25 MG TABCR PO (08:50)
[2024-04-07] MEDS: CELECOXIB 200 MG CAPSULE PO (08:51)
[2024-04-07 08:55] VITALS: PULSE 80; RESP 16; O2SAT 99
[2024-04-07] MEDS: INSULIN GLARGINE (*BKC) 100 UNITS/ML 22 UNITS SUB-Q (08:55)
[2024-04-07 10:04] LABS: Methylmalonic Acid 316 nmol/L (87-318)
--- NOTE | 2024-04-07 10:47 | PCNWS ---
Weekly nutritional screen. Patient is tolerating current diet with adequate intake. No weight loss reported. No nutritional needs at this time.
[2024-04-07 11:42] LABS: Glucose Point of Care 225 mg/dl (65-105)
[2024-04-07] MEDS: INSULIN ASPART (*BKC) 100 UNITS/ML SUB-Q ×3 (11:44→20:09)
--- NOTE | 2024-04-07 12:09 | PM.IMPN ---
Progress Note: A&P Assessment and Plan (1) Intertrochanteric fracture of right hip: Qualifiers: Encounter type: initial encounter Fracture alignment: nondisplaced Fracture type: closed Qualified Code(s): S72.144A - Nondisplaced intertrochanteric fracture of right femur, initial encounter for closed fracture Code(s): S72.141A - Displaced intertrochanteric fracture of right femur, initial encounter for closed fracture Status: Acute (2) Accidental fall: Code(s): W19.XXXA - Unspecified fall, initial encounter Status: Acute (3) UTI (urinary tract infection): Code(s): N39.0 - Urinary tract infection, site not specified Status: Ruled-out (4) Diabetes mellitus with chronic kidney disease: Code(s): E11.22 - Type 2 diabetes mellitus with diabetic chronic kidney disease Status: Chronic (5) CKD stage 4 due to type 2 diabetes mellitus: Code(s): E11.22 - Type 2 diabetes mellitus with diabetic chronic kidney disease; N18.4 - Chronic kidney disease, stage 4 (severe) Status: Chronic (6) HTN (hypertension): Code(s): I10 - Essential (primary) hypertension Status: Chronic (7) Thrombocythemia: Code(s): D75.839 - Thrombocytosis, unspecified Status: Acute (8) Anemia: Code(s): D64.9 - Anemia, unspecified Status: Acute Assessment and Plan: IV and oral iron per heme Onc (9) HELLEN (obstructive sleep apnea): Onset Date: ~07/18/23 Code(s): G47.33 - Obstructive sleep apnea (adult) (pediatric) Status: Acute Assessment and Plan: Stable with use of CPAP Plan right inter trochanter fracture of right hip and fall Patient had a accident fall, sustained right hip pain x-ray shows a right intertrochanteric fracture of right hip s/p Open reduction internal fixation right hip with a trochanteric nail optimize pain management consult PT OT critical care cns for evaluation and assisting placement Chronic thrombocytopenia Unclear etiologies No active bleeding postop anticoagulation with Xarelto 10 mg daily p.o. per Orthopedic surgery thrombocytopenia stable, no active bleeding consult heme oncologist for evaluation treatment essential hypertension Continue lisinopril 10 mg daily p.o., metoprolol XL 25 mg daily p.o., controlled type 2 diabetes Continue glargine 22 unit daily Start sliding scale a.c. q.h.s. Continue Jardiance and glipizide hyperlipidemia Continue Crestor 40 mg daily CKD stage 3b -4 BUN creatinine on baseline Avoid nephrotoxic medication Daily labs Placement pending--[facility]URA denial appealed, given current situation acute rehab seems to be appropriate destination however insurance recommending SNF. Two days ago patient was in a lot of pain and not doing well but now her pain is better controlled and she is participating better with therapy. Time Spent With Patient Time with patient: 25 - 35 minutes Subjective Date/time seen: 04/07/24 12:09 Interval history: Patient reports that she is feeling great today. She is working with therapy no longer experiencing right leg pain. Only taking p.r.n. Tylenol for pain. Patient still needs assistance therapy prior to returning home. [facility] Initial insurance declination currently in an appeals process. If appeal is not successful patient will likely require SNF for a couple weeks before returning home But skilled rehab is optimal destination at this time for patient current condition. Review of Systems Review of Systems: ROS negative except above All systems reviewed & are unremarkable except as noted in HPI and below Exam Narrative: GENERAL: Pleasant, in no acute distress. Well-nourished. - EYES: EOMI. Anicteric. - HENT: Moist mucous membranes. - LUNGS: Clear to auscultation bilaterally, no wheezing, rhonchi, or rales. - CARDIOVASCULAR: Regular rate and rhythm. No
[2024-04-07 14:00] VITALS: BP 137/58; PULSE 75; RESP 20; TEMP 37.1; O2SAT 98
[2024-04-07 16:53] LABS: Glucose Point of Care 203 mg/dl (65-105)
[2024-04-07] MEDS: RIVAROXABAN 10 MG TABLET PO (17:07)
[2024-04-07] MEDS: MIRTAZAPINE 15 MG TABLET PO (20:10)
[2024-04-07 20:39] LABS: Glucose Point of Care 229 mg/dl (65-105)
[2024-04-07] MEDS: HYDROcodone/acetaminophen (*CRX) 7.5-325 MG TABLET 1 TAB PO (21:58)
[2024-04-07] MEDS: CYCLOBENZAPRINE HCL 10 MG TABLET PO (21:59)
[2024-04-07 22:20] VITALS: PULSE 80; RESP 17; O2SAT 97
--- NOTE | 2024-04-07 23:00 | PC.NURSE ---
Patient handed off to MANJINDER Miranda.
[2024-04-08] MEDS: ACETAMINOPHEN 325 MG TABLET 650 MG PO ×3 (00:16→12:17)
[2024-04-08 02:42] VITALS: RESP 15
[2024-04-08 05:21] LABS: Basophils Percent Auto 0.8 % (0.2-1.2); Eosinophils Absolute Auto 0.2 K/mm3 (0-0.3); Eosinophils Percent Auto 6.3 % (0-4.4); Hematocrit 25.9 % (37.0-47.0); Hemoglobin 8.3 g/dL (12.0-15.0); Immature Granulocyte Absolute 0.04 K/mm3 (0.00-0.031); Immature Granulocyte Percent A 1.1 % (0-0.5); Lymphocytes Absolute Auto 0.98 K/mm3 (0.9-3.2); Lymphocytes Percent Auto 26.8 % (18.3-44.2); Mean Corpuscular Hemoglobin 31.1 pg (26-34); Mean Platelet Volume 10.1 fl (7.4-10.4); Monocytes Absolute Auto 0.4 K/mm3 (0.1-0.6); Monocytes Percent Auto 11.2 % (2.6-8.5); Neutrophils Percent Auto 53.8 % (45.5-73.1); Nucleated Red Blood Cells Perc 0.8 % (0.0-0.2); Platelet Count Result 110 k/mm3 (150-375); Red Blood Count 2.67 M/mm3 (4.2-5.4); White Blood Count 3.7 K/mm3 (4.5-10.0)
[2024-04-08 05:29] LABS: Alanine Aminotransferase 17 U/L (6-35); Albumin Level 2.9 g/dL (3.5-5.1); Alkaline Phosphatase 76 U/L (38-126); Anion Gap 3 mmol/L (4-12); Aspartate Amino Transferase 36 U/L (14-36); Bilirubin,Total 0.6 mg/dL (0.2-1.3); Blood Urea Nitrogen 26 mg/dL (7-17); Calcium 8.8 mg/dL (8.4-10.2); Carbon Dioxide 24 mmol/L (22-30); Chloride 111 mmol/L (98-107); Estimated CRCL calculation 28 ml/min; Estimated Glomerular Filt Rate 34; Glucose 146 mg/dL (65-110); Potassium 3.8 mmol/L (3.4-5.0); Sodium 138 mmol/L (137-145)
[2024-04-08 05:31] VITALS: BP 114/51; PULSE 79; RESP 17; TEMP 36.7; O2SAT 94
--- NOTE | 2024-04-08 07:19 | PM.IMPN ---
Progress Note: A&P Assessment and Plan (1) Intertrochanteric fracture of right hip: Qualifiers: Encounter type: initial encounter Fracture alignment: nondisplaced Fracture type: closed Qualified Code(s): S72.144A - Nondisplaced intertrochanteric fracture of right femur, initial encounter for closed fracture Code(s): S72.141A - Displaced intertrochanteric fracture of right femur, initial encounter for closed fracture Status: Acute (2) Accidental fall: Code(s): W19.XXXA - Unspecified fall, initial encounter Status: Acute (3) UTI (urinary tract infection): Code(s): N39.0 - Urinary tract infection, site not specified Status: Ruled-out (4) Diabetes mellitus with chronic kidney disease: Code(s): E11.22 - Type 2 diabetes mellitus with diabetic chronic kidney disease Status: Chronic (5) CKD stage 4 due to type 2 diabetes mellitus: Code(s): E11.22 - Type 2 diabetes mellitus with diabetic chronic kidney disease; N18.4 - Chronic kidney disease, stage 4 (severe) Status: Chronic (6) HTN (hypertension): Code(s): I10 - Essential (primary) hypertension Status: Chronic (7) Thrombocythemia: Code(s): D75.839 - Thrombocytosis, unspecified Status: Acute (8) Anemia: Code(s): D64.9 - Anemia, unspecified Status: Acute Assessment and Plan: IV and oral iron per heme Onc (9) HELLEN (obstructive sleep apnea): Onset Date: ~07/18/23 Code(s): G47.33 - Obstructive sleep apnea (adult) (pediatric) Status: Acute Assessment and Plan: Stable with use of CPAP Plan right inter trochanter fracture of right hip and fall Patient had a accident fall, sustained right hip pain x-ray shows a right intertrochanteric fracture of right hip s/p Open reduction internal fixation right hip with a trochanteric nail optimize pain management consult PT OT manager managed care for evaluation and assisting placement 04/08: doing well, working with PT/OT Chronic thrombocytopenia Unclear etiologies No active bleeding postop anticoagulation with Xarelto 10 mg daily p.o. per Orthopedic surgery thrombocytopenia stable, no active bleeding consult heme oncologist for evaluation treatment 04/08: stable. Platelets improving essential hypertension Continue lisinopril 10 mg daily p.o., metoprolol XL 25 mg daily p.o., controlled 04/08: Blood pressures reviewed. type 2 diabetes Continue glargine 22 unit daily Start sliding scale a.c. q.h.s. Continue Jardiance and glipizide 04/08:Blood glucose reviewed. Continue current therapies. hyperlipidemia Continue Crestor 40 mg daily CKD stage 3b -4 BUN creatinine on baseline Avoid nephrotoxic medication Daily labs 04/08: Cr remains at 1.5 which is her baseline. Placement pending--[facility]A denial appealed, given current situation acute rehab seems to be appropriate destination however insurance recommending SNF. Two days ago patient was in a lot of pain and not doing well but now her pain is better controlled and she is participating better with therapy. Subjective Date/time seen: 04/08/24 07:19 Interval history: 78-year-old with a history of hypertension diabetes, chronic thrombocytopenia, CKD stage 4, hyperlipidemia present ED with a chief complaint of fall and right hip pain. 04/08: Very pleasant lady, seen sitting in her chair in no acute distress. She has some right hip discomfort but her pain medication has been helping to manage her pain. She is eating and drinking without difficulty and has been having bowel movements. Her right hip incision is covered with an island dressing which is clean, dry, and intact. She has trace-+1 edema to her RLE. Awaiting placement. Review of Systems Review of Systems: ROS negative except above All systems reviewed & are unremarkable except as noted in HPI and below Exam Narrative:
[2024-04-08 08:24] LABS: Glucose Point of Care 145 mg/dl (65-105)
[2024-04-08 08:52] VITALS: BP 147/51; PULSE 97; RESP 16; O2SAT 100
[2024-04-08 08:53] VITALS: PULSE 97
[2024-04-08] MEDS: ASPIRIN 81 MG ENTERIC TABLET PO (08:53)
[2024-04-08] MEDS: EMPAGLIFLOZIN 25 MG TABLET PO (08:53)
[2024-04-08] MEDS: polyethylene glycoL 3350 17 GM POWD.PACK PO (08:53)
[2024-04-08] MEDS: SENNA/DOCUSATE SODIUM TABLET 2 TAB PO (08:53)
[2024-04-08] MEDS: lisinopriL 10 MG TABLET PO (08:53)
[2024-04-08] MEDS: METOPROLOL SUCCINATE EXT REL 25 MG TABCR PO (08:53)
[2024-04-08] MEDS: FERROUS SULFATE 325 MG TABLET DR PO (08:53)
[2024-04-08] MEDS: CELECOXIB 200 MG CAPSULE PO (08:53)
[2024-04-08] MEDS: ROSUVASTATIN 20 MG TABLET 40 MG PO (08:53)
[2024-04-08] MEDS: INSULIN GLARGINE (*BKC) 100 UNITS/ML 22 UNITS SUB-Q (08:54)
[2024-04-08] MEDS: SERTRALINE HCL 50 MG TABLET 100 MG PO (08:54)
[2024-04-08] MEDS: glipiZIDE XL 5 MG TABCR 10 MG PO (08:54)
[2024-04-08 11:50] LABS: SARS-CoV-2 RNA PCR Negative (Negative)
[2024-04-08 12:07] LABS: Glucose Point of Care 295 mg/dl (65-105)
[2024-04-08] MEDS: INSULIN ASPART (*BKC) 100 UNITS/ML SUB-Q (12:17)
[2024-04-08 14:00] VITALS: BP 130/58; PULSE 85; RESP 21; TEMP 36.6; O2SAT 96
--- NOTE | 2024-04-09 12:54 | PM.DS ---
DS: Admitting Diagnosis Discharge Date 04/08/24 Admitting Diagnosis fall DS: Discharge Diagnosis Discharge Diagnosis (1) Intertrochanteric fracture of right hip: Qualifiers: Encounter type: initial encounter Fracture alignment: nondisplaced Fracture type: closed Qualified Code(s): S72.144A - Nondisplaced intertrochanteric fracture of right femur, initial encounter for closed fracture Code(s): S72.141A - Displaced intertrochanteric fracture of right femur, initial encounter for closed fracture Status: Acute (2) Accidental fall: Code(s): W19.XXXA - Unspecified fall, initial encounter Status: Acute (3) UTI (urinary tract infection): Code(s): N39.0 - Urinary tract infection, site not specified Status: Ruled-out (4) Diabetes mellitus with chronic kidney disease: Code(s): E11.22 - Type 2 diabetes mellitus with diabetic chronic kidney disease Status: Chronic (5) CKD stage 4 due to type 2 diabetes mellitus: Code(s): E11.22 - Type 2 diabetes mellitus with diabetic chronic kidney disease; N18.4 - Chronic kidney disease, stage 4 (severe) Status: Chronic (6) HTN (hypertension): Code(s): I10 - Essential (primary) hypertension Status: Chronic (7) Thrombocythemia: Code(s): D75.839 - Thrombocytosis, unspecified Status: Acute (8) Anemia: Code(s): D64.9 - Anemia, unspecified Status: Acute Assessment and Plan: IV and oral iron per heme Onc (9) HELLEN (obstructive sleep apnea): Onset Date: ~07/18/23 Code(s): G47.33 - Obstructive sleep apnea (adult) (pediatric) Status: Acute Assessment and Plan: Stable with use of CPAP Plan right inter trochanter fracture of right hip and fall Patient had a accident fall, sustained right hip pain x-ray shows a right intertrochanteric fracture of right hip s/p Open reduction internal fixation right hip with a trochanteric nail optimize pain management consult PT OT acute care physician for evaluation and assisting placement 04/08: doing well, working with PT/OT Chronic thrombocytopenia Unclear etiologies No active bleeding postop anticoagulation with Xarelto 10 mg daily p.o. per Orthopedic surgery thrombocytopenia stable, no active bleeding consult heme oncologist for evaluation treatment 04/08: stable. Platelets improving essential hypertension Continue lisinopril 10 mg daily p.o., metoprolol XL 25 mg daily p.o., controlled 04/08: Blood pressures reviewed. type 2 diabetes Continue glargine 22 unit daily Start sliding scale a.c. q.h.s. Continue Jardiance and glipizide 04/08:Blood glucose reviewed. Continue current therapies. hyperlipidemia Continue Crestor 40 mg daily CKD stage 3b -4 BUN creatinine on baseline Avoid nephrotoxic medication Daily labs 04/08: Cr remains at 1.5 which is her baseline. Placement pending--LAURA denial appealed, given current situation acute rehab seems to be appropriate destination however insurance recommending SNF. Two days ago patient was in a lot of pain and not doing well but now her pain is better controlled and she is participating better with therapy. DS: Summary Hospital Course Reason for hospitalization: Right hip femur fracture Hospital Course: 78-year-old with a history of hypertension diabetes, chronic thrombocytopenia, CKD stage 4, hyperlipidemia present ED with a chief complaint of fall and right hip pain. She was found to have a right hip femur fracture and underwent ORIF with Dr Mora on 04/01/24. She had persistent thrombocytopenia and hem/onc was consulted. Suspect thrombocytopenia secondary to iron deficiency versus possible ITP/chronic ITP and possible bone marrow disorder like MDS. Her iron deficiency was corrected with treatment and she will follow-up with the oncologist, explosion welder team at discharge. She was discharged his snf for
[2024-04-14 17:00] LABS: Soluble Transferrin Receptor 1.64 mg/L (0.76-1.76)
== END 2024-04-08 16:45 | DRG 481 ==
LOC: ANHED 12:13 → ANH2MED 12:46
PROVIDERS: Nurse Practitioner Family; Orthopaedic Surgery; Admitting Provider Hospitalist; Emergency Provider Family Medicine; PCP Family Medicine; Visit Provider Nurse Practitioner Acute Care
PROC: 0QS634Z Reposition Right Upper Femur with Internal Fixation Device, Percutaneous Approach (ICD-10-PCS; CPT 27245; principal; 2024-04-01 14:00)
DX: S72.141A Displaced intertrochanteric fracture of right femur, initial encounter for closed fracture (principal); N18.4 Chronic kidney disease, stage 4 (severe); N39.0 Urinary tract infection, site not specified; W18.30XA Fall on same level, unspecified, initial encounter; I12.9 Hypertensive chronic kidney disease with stage 1 through stage 4 chronic kidney disease, or unspecified chronic kidney disease; E11.22 Type 2 diabetes mellitus with diabetic chronic kidney disease; D69.6 Thrombocytopenia, unspecified; I25.10 Atherosclerotic heart disease of native coronary artery without angina pectoris; E11.3493 Type 2 diabetes mellitus with severe nonproliferative diabetic retinopathy without macular edema, bilateral; E78.5 Hyperlipidemia, unspecified; D50.9 Iron deficiency anemia, unspecified; G47.33 Obstructive sleep apnea (adult) (pediatric); Z79.4 Long term (current) use of insulin; Z95.5 Presence of coronary angioplasty implant and graft; Z87.891 Personal history of nicotine dependence; J44.9 Chronic obstructive pulmonary disease, unspecified; Z11.52 Encounter for screening for COVID-19
CPT/HCPCS: 36415; 70450; 71045; 72125; 73502; 76700; 80048; 80053; 81001; 82550; 82607; 82728; 82746; 82948; 83540; 83550; 83921; 84238; 85025; 85055; 86023; 87635; 93005; 97110; 97116; 97161; 97165; 97530; 97535; 99199; 99285; A9270; C1713; J0690; J1741; J1756; J1815; J2405; J2704; J3010; J7030; J7050; J7120

== ENCOUNTER 2024-05-04 11:09 | Outpatient (CLI) | payer MEDICARE, SELFPAY ==
[2024-05-04 11:31] LABS: Basophils Percent Auto 0.4 % (0.2-1.2); Eosinophils Absolute Auto 0.2 K/mm3 (0-0.3); Eosinophils Percent Auto 3.4 % (0-4.4); Hematocrit 34.6 % (37.0-47.0); Hemoglobin 11.1 g/dL (12.0-15.0); Immature Granulocyte Absolute 0.02 K/mm3 (0.00-0.031); Immature Granulocyte Percent A 0.4 % (0-0.5); Immature Platelet Fraction Pct 2.6 % (0.9-11.2); Lymphocytes Absolute Auto 0.88 K/mm3 (0.9-3.2); Lymphocytes Percent Auto 16.4 % (18.3-44.2); Mean Corpuscular HGB Conc 32.1 g/dl (32-36); Mean Corpuscular Hemoglobin 31.3 pg (26-34); Mean Corpuscular Volume 97.5 fl (80-100); Mean Platelet Volume 9.8 fl (7.4-10.4); Monocytes Absolute Auto 0.5 K/mm3 (0.1-0.6); Monocytes Percent Auto 8.8 % (2.6-8.5); Neutrophils Absolute Auto 3.8 K/mm3 (1.3-6.7); Neutrophils Percent Auto 70.6 % (45.5-73.1); Platelet Count Result 118 k/mm3 (150-375); Red Blood Count 3.55 M/mm3 (4.2-5.4); Red Cell Distribution Width 15.3 % (11.5-14.5); White Blood Count 5.4 K/mm3 (4.5-10.0)
[2024-05-04 16:38] LABS: Iron 68 ug/dL (37-170)
[2024-05-04 16:41] LABS: Alanine Aminotransferase 10 U/L (6-35); Alkaline Phosphatase 129 U/L (38-126); Anion Gap 9 mmol/L (4-12); Aspartate Amino Transferase 24 U/L (14-36); Bilirubin,Total 0.5 mg/dL (0.2-1.3); Blood Urea Nitrogen 31 mg/dL (7-17); Calcium 9.4 mg/dL (8.4-10.2); Carbon Dioxide 29 mmol/L (22-30); Chloride 103 mmol/L (98-107); Estimated Glomerular Filt Rate 29; Glucose 171 mg/dL (65-110); Potassium 4.3 mmol/L (3.4-5.0); Sodium 141 mmol/L (137-145)
[2024-05-04 16:44] LABS: Appearance Urine Clear (Clear); Bacteria Urine None Seen /hpf; Bilirubin Urine Negative (Negative); Blood Urine 3+ (Negative); Color Urine Yellow (Yellow); Glucose Urine UA 3+ mg/dL (Negative); Ketones Urine Negative (Negative); Leukocyte Esterase Ur Trace LEU/UL (Negative); Nitrate Urine Negative (Negative); Non Pathogenic Casts 0-2; Protein Urine 1+ mg/dL (Negative); RBC Urine 21-50 /hpf (0-2); Specific Grav Ur 1.016 (1.001-1.035); Squamous Epithelial Cell Urine None Seen /hpf (Few); Urobilinogen Urine 0.2 mg/dL (<2.0); pH Urine 5.5 (5.0-9.0)
[2024-05-04 16:52] LABS: Add Urine Microscopic? YES
[2024-05-04 16:58] LABS: Percent Iron Saturation 22 % (20-50)
[2024-05-04 17:46] LABS: Folic Acid 12.2 ng/mL (2.76->20)
== END 2024-05-04 11:10 | disposition home or self-care (01) ==
LOC: ANHLAB 11:10
PROVIDERS: PCP Nurse Practitioner Family; Visit Provider Internal Medicine Hematology & Oncology
DX: D64.9 Anemia, unspecified (principal)
CPT/HCPCS: 36415; 80053; 81001; 82607; 82728; 82746; 83540; 83550; 85025; 85055

== ENCOUNTER 2024-06-04 13:01 | Outpatient (NON) | payer MEDICARE, SELFPAY ==
[2024-06-04 13:37] LABS: Add Urine Microscopic? YES; Appearance Urine Cloudy (Clear); Bacteria Urine None Seen /hpf; Bilirubin Urine Negative (Negative); Blood Urine 2+ (Negative); Color Urine Yellow (Yellow); Glucose Urine UA 2+ mg/dL (Negative); Ketones Urine Negative (Negative); Leukocyte Esterase Ur 3+ LEU/UL (Negative); Nitrate Urine Negative (Negative); Non Pathogenic Casts 0-2; Protein Urine Trace mg/dL (Negative); RBC Urine 0-2 /hpf (0-2); Specific Grav Ur 1.007 (1.001-1.035); Squamous Epithelial Cell Urine None Seen /hpf (Few); Urobilinogen Urine 0.2 mg/dL (<2.0); WBC Urine >100 /hpf (0-3); pH Urine 5.5 (5.0-9.0)
== END 2024-06-04 13:02 | disposition home or self-care (01) ==
PROVIDERS: PCP Family Medicine; Visit Provider Family Medicine
DX: N39.0 Urinary tract infection, site not specified (principal); S72.144D Nondisplaced intertrochanteric fracture of right femur, subsequent encounter for closed fracture with routine healing; E11.22 Type 2 diabetes mellitus with diabetic chronic kidney disease; X58.XXXD Exposure to other specified factors, subsequent encounter; I12.9 Hypertensive chronic kidney disease with stage 1 through stage 4 chronic kidney disease, or unspecified chronic kidney disease; N18.9 Chronic kidney disease, unspecified
CPT/HCPCS: 81001; 87077; 87086; 87088; 87181

== ENCOUNTER 2024-06-09 10:52 | Outpatient (NON) | payer MEDICARE, SELFPAY ==
[2024-06-09 11:33] LABS: Anion Gap 13 mmol/L (4-12); Blood Urea Nitrogen 37 mg/dL (7-17); Calcium 9.2 mg/dL (8.4-10.2); Carbon Dioxide 22 mmol/L (22-30); Chloride 101 mmol/L (98-107); Estimated Glomerular Filt Rate 21; Glucose 199 mg/dL (65-110); Phosphorus 3.7 mg/dL (2.5-4.5); Potassium 3.8 mmol/L (3.4-5.0); Sodium 136 mmol/L (137-145)
[2024-06-09 11:45] LABS: Parathyroid Intact 48.1 pg/mL (7.5-53.5)
[2024-06-09 11:54] LABS: Vitamin D 25 Hydroxy 51.9 ng/mL
== END 2024-06-09 10:53 | disposition home or self-care (01) ==
PROVIDERS: PCP Family Medicine; Visit Provider Internal Medicine Nephrology
DX: I12.9 Hypertensive chronic kidney disease with stage 1 through stage 4 chronic kidney disease, or unspecified chronic kidney disease (principal); N18.4 Chronic kidney disease, stage 4 (severe); E11.22 Type 2 diabetes mellitus with diabetic chronic kidney disease; N25.81 Secondary hyperparathyroidism of renal origin; E55.9 Vitamin D deficiency, unspecified
CPT/HCPCS: 80069; 82306; 83970

== ENCOUNTER 2024-07-14 16:03 | Outpatient (CLI) | payer MEDICARE, SELFPAY ==
--- NOTE | ~2024-07-14 | US_ITS ---
EXAMINATION: US venous doppler LE RT DATE: 07/14/2024 16:50 INDICATION: Right lower limb pain. TECHNIQUE: Grayscale ultrasound images without and with compression and Doppler ultrasound images of the right lower extremity veins were obtained. COMPARISON: None. FINDINGS: The visualized portions of right common femoral vein, profunda (deep) femoral vein, femoral vein, pop liteal vein, peroneal veins, posterior tibial veins, and greater saphenous vein outflow are patent. IMPRESSION: 1. No deep venous thrombosis. Reviewed, dictated and finalized at location A.
== END 2024-07-14 16:04 | disposition home or self-care (01) ==
PROVIDERS: PCP Family Medicine; Visit Provider Orthopaedic Surgery
DX: M79.604 Pain in right leg (principal); M79.89 Other specified soft tissue disorders
CPT/HCPCS: 93971

== ENCOUNTER 2024-08-24 10:55 | Outpatient (CLI) | payer MEDICARE, SELFPAY ==
[2024-08-24 11:23] LABS: Hematocrit 40.5 % (37.0-47.0); Hemoglobin 13.6 g/dL (12.0-15.0); Immature Platelet Fraction Pct 3.5 % (0.9-11.2); Mean Corpuscular HGB Conc 33.6 g/dl (32-36); Mean Corpuscular Hemoglobin 31.6 pg (26-34); Mean Corpuscular Volume 94.2 fl (80-100); Mean Platelet Volume 10.5 fl (7.4-10.4); Platelet Count Result 119 k/mm3 (150-375); Red Cell Distribution Width 14.4 % (11.5-14.5); White Blood Count 5.1 K/mm3 (4.5-10.0)
[2024-08-24 13:58] LABS: Iron 80 ug/dL (37-170)
[2024-08-24 14:02] LABS: Anion Gap 12 mmol/L (4-12); Blood Urea Nitrogen 35 mg/dL (7-17); Calcium 9.5 mg/dL (8.4-10.2); Carbon Dioxide 23 mmol/L (22-30); Chloride 104 mmol/L (98-107); Estimated Glomerular Filt Rate 26; Glucose 193 mg/dL (65-110); Potassium 4.1 mmol/L (3.4-5.0); Sodium 139 mmol/L (137-145)
[2024-08-24 14:16] LABS: Percent Iron Saturation 26 % (20-50)
== END 2024-08-24 10:56 | disposition home or self-care (01) ==
LOC: ANHLAB 10:56
PROVIDERS: PCP Family Medicine; Visit Provider Internal Medicine Hematology & Oncology
DX: D64.9 Anemia, unspecified (principal)
CPT/HCPCS: 36415; 80048; 82728; 83540; 83550; 85027; 85055

== ENCOUNTER 2024-10-04 07:41 | Emergency (ER) | payer MEDICARE, SELFPAY ==
[2024-10-04] VITALS (19 sets, daily range): BP systolic 142–172; BP diastolic 50–76; PULSE 66–84; RESP 14–25; TEMP 36.4–36.6; O2SAT 94–100
--- NOTE | ~2024-10-04 | CT_ITS ---
EXAMINATION: CT abdomen pelvis wo con DATE: 10/04/2024 09:50 INDICATION: Abdominal pain. TECHNIQUE: Computed tomography (CT) of the abdomen and pelvis was performed without intravenous contr ast. Automated exposure control and iterative reconstruction technique were employed. The dose-length product was 271.53 mGy-cm. COMPARISON: CT abdomen and pelvis 07/29/2022, 12/11/18 FINDINGS: The visualized portions of the lung bases demonstrate mild atelectasis. No pleural effusion . The heart size is normal. There are coronary artery calcifications. No pericardial effusion. The li arabella and spleen are normal. There are gallstones in the gallbladder. The gallbladder is distended domingo lar to that seen on 07/29/22 and 12/11/18. The pancreas, adrenal glands, and kidneys are normal. There is no urolithiasis. There are no dilated loops of bowel. The appendix is normal. There is a 12.0 cm r ight adnexal mass. There are no pathologically enlarged lymph nodes. There is trace pelvic ascites. T here is calcified atherosclerosis of the aorta and many of the other arteries. There is a comminuted fracture of proximal right femur with internal fixation. There are chronic fractures of T12 and L1. T here is mild thoracic and lumbar spondylosis. IMPRESSION: 1. 12.0 cm right adnexal mass with change in position from prior imaging. This finding is most likely a pedunculated fibroid. The position change may be clinically insignificant or may be torsion. 2. Cholelithiasis. Gallbladder distention again seen. Reviewed, dictated and finalized at location A. HOOKER IMPRESSION: 1. 12.0 cm right adnexal mass with change in position from prior imaging. This finding is most likely a pedunculated fibroid. The position change may be clini rd insignificant or may be torsion. 2. Cholelithiasis. Gallbladder distention again seen.
--- NOTE | ~2024-10-04 | US_ITS ---
EXAMINATION: US pelvic complete DATE: 10/04/2024 13:45 INDICATION: Abdominal pain. TECHNIQUE: Multiple transabdominal sonographic images of the pelvis were obtained. COMPARISON: CT abdomen and pelvis 10/04/2024 FINDINGS: The uterus measures 8.8 x 2.3 x 3.7 cm. There is physiologic free fluid in the pelvis. The endometria l complex measures 5 mm in thickness. There is a 10.3 x 8.3 x 9.9 cm mass in the right adnexa. The ri ght ovary is not visualized. The left ovary measures 2.0 x 1.8 x 1.3 cm. IMPRESSION: 1. Chronic 10.3 cm mass in the right adnexa, likely a fibroid. 2. Right ovary not visualized. Reviewed, dictated and finalized at location A. DENTIAL SALES EXECUTIVE
[2024-10-04 08:13] LABS: Basophils Percent Auto 0.3 % (0.2-1.2); Eosinophils Absolute Auto 0.2 K/mm3 (0-0.3); Eosinophils Percent Auto 2.1 % (0-4.4); Hematocrit 41.8 % (37.0-47.0); Hemoglobin 13.9 g/dL (12.0-15.0); Immature Granulocyte Absolute 0.02 K/mm3 (0.00-0.031); Immature Granulocyte Percent A 0.3 % (0-0.5); Immature Platelet Fraction Pct 2.5 % (0.9-11.2); Lymphocytes Absolute Auto 0.86 K/mm3 (0.9-3.2); Lymphocytes Percent Auto 12.3 % (18.3-44.2); Mean Corpuscular HGB Conc 33.3 g/dl (32-36); Mean Corpuscular Hemoglobin 31.7 pg (26-34); Mean Corpuscular Volume 95.2 fl (80-100); Mean Platelet Volume 10.7 fl (7.4-10.4); Monocytes Absolute Auto 0.4 K/mm3 (0.1-0.6); Neutrophils Absolute Auto 5.5 K/mm3 (1.3-6.7); Platelet Count Result 77 k/mm3 (150-375); Red Blood Count 4.39 M/mm3 (4.2-5.4); Red Cell Distribution Width 14.5 % (11.5-14.5)
[2024-10-04 08:21] LABS: Alanine Aminotransferase 13 U/L (6-35); Albumin Level 4.2 g/dL (3.5-5.1); Alkaline Phosphatase 89 U/L (38-126); Anion Gap 8 mmol/L (4-12); Aspartate Amino Transferase 24 U/L (14-36); Bilirubin,Total 0.7 mg/dL (0.2-1.3); Blood Urea Nitrogen 29 mg/dL (7-17); Calcium 9.4 mg/dL (8.4-10.2); Carbon Dioxide 27 mmol/L (22-30); Chloride 103 mmol/L (98-107); Estimated CRCL calculation 23 ml/min; Estimated Glomerular Filt Rate 27; Glucose 164 mg/dL (65-110); Lipase 114 U/L (23-300); Potassium 3.7 mmol/L (3.4-5.0); Sodium 138 mmol/L (137-145)
--- NOTE | 2024-10-04 08:53 | ED.ABDPAIN ---
HPI - Abdominal Pain General Chief Complaint: Abdominal Pain Stated Complaint: constipation x 3 days, RLQ pain Time Seen by Provider: 10/04/24 08:52 Source: patient History of Present Illness HPI narrative: Right lower quadrant pain started 4:00 a.m. associated with nausea and vomiting. Dull aching, no radiation, she denies any fever, chills, diarrhea. Last bowel movement 3 days ago. Patient denies any history of abdominal surgery Related Data Home Medications Medication Instructions Recorded Confirmed ascorbic acid (vitamin C) 500 mg 500 mg PO DAILY 11/19/19 09/10/24 tablet (Vitamin C) calcium carbonate (Calcium 600) 600 mg PO DAILY 11/19/19 09/10/24 krill 300 mg-omega 3 90 mg-dha 24 1 cap PO DAILY 11/19/19 09/10/24 mg-epa 50 no-[id number] capsule (MegaRed [place]-3 Krill Oil) metoprolol succinate 25 mg 25 mg PO DAILY 11/19/19 09/10/24 tablet,extended release 24 hr vitamin B12 1,000 mcg-folic acid 1 tablet sublingual DAILY 11/19/19 09/10/24 400 mcg sublingual tablet aspirin 81 mg tablet,delayed 81 mg PO DAILY 11/09/22 09/10/24 release rosuvastatin 20 mg tablet 40 mg PO DAILY 12/11/23 09/10/24 fluticasone propionate 50 1 spray intranasal DAILY PRN Cold 03/31/24 09/10/24 mcg/actuation nasal Symptoms spray,suspension (Flonase Allergy Relief) cholecalciferol (vitamin D3) 25 25 mcg PO DAILY 04/16/24 09/10/24 mcg (1,000 unit) capsule vitamin E mixed 400 unit tablet unit PO 04/16/24 09/10/24 sertraline 100 mg tablet 75 mg PO DAILY 06/11/24 09/10/24 Allergies Allergy/AdvReac Type Severity Reaction Status Date / Time [place] [employer] AdvReac Intermediate Difficulty Verified 10/04/24 07:49 Breathing [facility] Past Medical History Medical History Abscess Acute UTI Anemia Anxiety Arthritis ASHD (arteriosclerotic heart disease) Bilateral carotid bruits Body mass index [BMI] 28.0-28.9, adult (12/18/16) Body mass index [BMI] 29.0-29.9, adult (06/18/16) Body mass index [BMI] 30.0-30.9, adult (12/15/15) Body mass index [BMI] 31.0-31.9, adult (01/06/18) Cellulitis of upper extremity Central sleep apnea (~07/18/23) central sleep apnea index of 4.8 on 07/18/2023. Cerebellar dysfunction Closed fracture of ramus of right pubis with routine healing Closed fracture of right pubis Closed right hip fracture Constipation COPD mixed type Diabetes type 2, controlled Diastolic dysfunction Dysarthria Dysuria Dysuria Encounter to establish care Falls frequently Heart disease Heart murmur Hematuria HLD (hyperlipidemia) HTN (hypertension) HTN (hypertension) Hx of falling Insomnia Kidney disease Left humeral fracture Left leg weakness Multiple thyroid nodules Nasal folliculitis Nausea Neuropathy HELLEN (obstructive sleep apnea) (~07/18/23) Home sleep study 07/18/2023 with AHI of 21.3 with oxygen saturation to 85% with central sleep apnea index of 4.8. Patient needs CPAP titration. 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 Urinary incontinence in female UTI (urinary tract infection) UTI symptoms Vaginal yeast infection Weakness Surgical History Surgical History History of coronary artery stent placement Hx of pelvic surgery Hx of removal of neck cyst Status post total hip replacement, right Family History Family History Sibling Family history of cardiovascular disease Father Diabetes mellitus Heart disease Mother Hypertension Sibling Diabetes mellitus Hypertension Other Arthritis Depression High cholesterol Neuropathy Social History Social History Social History: Patient does not drinks caffeine or exercise. 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 Gender identity (if verbalized by the patient): Female Spiritual care concerns: No Course Vital Signs Vital signs: Vital Signs Temperature 36.4 C 10/04/24 07:42 Pulse Rate 73 10/04/24 07:42 Respiratory Rate 20 10/04/24 07:42 Blood Pressure 172/61 H 10/04/24 07:42 Pulse Oximetry 99 10/04/24 07:42 Oxygen Delivery Room Air 10/04/24 07:42 Temperature 36.6 C 10/04/24 12:49 Pulse Rate 84 10/04/24 12:49 Respiratory Rate 20 10/04/24 12:49 Blood Pressure 145/50 H 10/04/24 12:49 Pulse Oximetry 98 10/04/24 12:49 Oxygen Delivery Room Air 10/04/24 07:42 MDM - Abdominal Pain MDM Narrative Medical decision making narrative: PATIENT CAME WITH RIGHT LOWER QUADRANT PAIN VITAL SIGNS SHOWING BLOOD PRESSURE 172/61 PHYSICAL EXAMINATION SHOWING [id number] TENDERNESS RIGHT LOWER QUADRANT OTHERWISE INSIGNIFICANT BLOOD WORKUP TODAY INCLUDES CBC, CMP, LIPASE SHOWED WBC OF 7.0 PLATELET COUNT 77, CREATININE 128, BUN 29 URINALYSIS SHOWED EVIDENCE OF INFECTION CT ABDOMEN AND PELVIS WITH IV CONTRAST SHOWED 12 CM RIGHT ADNEXAL MASS, CHOLELITHIASIS, DISTENDED BLADDER AGAIN SEEN PELVIC ULTRASOUND SHOWED CHRONIC 10.3 CM MASS IN THE RIGHT ADNEXA, LIKELY A FIBROID PATIENT WAS ABLE TO KEEP FLUIDS AND CRACKERS DOWN, SLIGHTLY NAUSEATED, DISCHARGED ON CIPRO AND ZOFRAN. FOLLOW-UP WITH OBGYN Differential Diagnosis Differential diagnosis: Likely other ( ABOVE) Medical Records Attestation: I reviewed the patient's medical records. Lab Data Attestation: I reviewed the patient's lab results. 10/04/24 08:04 10/04/24 08:04 Labs: Lab Results 10/04/24 10/04/24 10/04/24 Range/Units 08:04 09:26 11:27 WBC 7.0 (4.5-10.0) K/mm3 RBC 4.39 (4.2-5.4) M/mm3 Hgb 13.9 (12.0-15.0) g/dL Hct 41.8 (37.0-47.0) % MCV 95.2 (80-100) fl MCH 31.7 (26-34) pg MCHC 33.3 (32-36) g/dl RDW 14.5 (11.5-14.5) % Plt Count 77 L (150-375) k/mm3 MPV 10.7 H (7.4-10.4) fl Immature Gran % (Auto) 0.3 (0-0.5) % Neut % (Auto) 79.0 H (45.5-73.1) % Lymph % (Auto) 12.3 L (18.3-44.2) % [place] % (Auto) 6.0 (2.6-8.5) % Eos % (Auto) 2.1 (0-4.4) % Baso % (Auto) 0.3 (0.2-1.2) % Lymph # (Auto) 0.86 L (0.9-3.2) K/mm3 [place] # (Auto) 0.4 (0.1-0.6) K/mm3 Eos # (Auto) 0.2 (0-0.3) K/mm3 Baso # (Auto) 0.0 (0.0-0.1) K/mm3 Abs Immat Gran (auto) 0.02 (0.00-0.031) K/mm3 Absolute Neuts (auto) 5.5 (1.3-6.7) K/mm3 Absolute Nucleated RBC 0.000 (0.0-0.012) K/mm3 Nucleated RBC % 0.0 (0.0-0.2) % % Immature Plt Fraction 2.5 (0.9-11.2) % Sodium 138 (137-145) mmol/L Potassium 3.7 (3.4-5.0) mmol/L Chloride 103 (98-107) mmol/L Carbon Dioxide 27 (22-30) mmol/L Anion Gap 8 (4-12) mmol/L BUN 29 H (7-17) mg/dL Creatinine 1.80 H (0.7-1.0) mg/dL Estim Creat Clear Calc 23 ml/min Estimated GFR 27 L (59 - ) Glucose 164 H (65-110) mg/dL Lactic Acid 1.2 (0.7-2.0) mmol/L Calcium 9.4 (8.4-10.2) mg/dL Total Bilirubin 0.7 (0.2-1.3) mg/dL AST 24 (14-36) U/L ALT 13 (6-35) U/L Alkaline Phosphatase 89 (38-126) U/L Total Protein 7.0 (6.3-8.2) g/dL Albumin 4.2 (3.5-5.1) g/dL Lipase 114 (23-300) U/L Urine Color Yellow (Yellow) Urine Appearance Cloudy H (Clear) Urine pH 6.5 (5.0-9.0) Ur Specific [place] 1.022 (1.001-1.035) Urine Protein 2+ H (Negative) mg/dL Urine Glucose (UA) 3+ H (Negative) mg/dL Urine Ketones Trace H (Negative) mg/dL Ur Blood (Man) Non-hemolyzed trace H (Negative) Urine Nitrate Negative (Negative) Urine Bilirubin Negative (Negative) Urine Urobilinogen 1.0 (<2.0) mg/dL Leukocyte Esterase Rfl 2+ H (Negative) [place]/UL Urine RBC 6-10 H (0-2) /hpf Urine WBC >100 H (0-3) /hpf Ur Squamous Epith Cells Few (Few) /hpf Urine Bacteria Rare /hpf Urine Casts 0-2 Imaging Data Radiologist's impression: ITS Impressions Abdomen/Pelvis CT 10/04/24 09:51 IMPRESSION: 1. 12.0 cm right adnexal mass with change in position from prior imaging. This finding is most likely a pedunculated fibroid. The position change may be clinically insignificant or may be torsion. 2. Cholelithiasis. Gallbladder distention again seen. Pelvis Ultrasound 10/04/24 13:49 IMPRESSION: 1. Chronic 10.3 cm mass in the right adnexa, likely a fibroid. 2. Right ovary not visualized. Critical Care Time Critical Care Time Critical Care Time: No Discharge Plan Discharge Clinical Impression: Vomiting, Urinary tract infection Patient Disposition: Still a Patient Condition: Stable Prescriptions: New ciprofloxacin HCl [Cipro] 500 mg tablet 500 mg PO Q12H Qty: 14 0RF ondansetron HCl 4 mg tablet 4 mg PO Q4H Qty: 10 0RF Rx Instructions: 1st dose 1-2 hr before radiation No Action [id number] [MegaRed [place]-3 Krill Oil] [id number] mg capsule 1 cap PO DAILY calcium carbonate [Calcium 600] 600 mg calcium (1,500 mg) tablet 600 mg PO DAILY vitamin [id number] acid 1,000-400 mcg tablet, sublingual 1 tablet SUBLINGUAL DAILY metoprolol succinate 25 mg tablet extended release 24 hr 25 mg PO DAILY ascorbic acid (vitamin C) [Vitamin C] 500 mg tablet 500 mg PO DAILY Jardiance 25 mg tablet 25 mg PO DAILY Qty: 30 11RF cholecalciferol (vitamin D3) 25 mcg (1,000 unit) capsule 25 mcg PO DAILY vitamin E mixed 400 unit tablet PO (DME) pen needle, diabetic [BD Ultra-Fine Mini Pen Needle] 31 gauge x 3/16 needle See Rx Instructions .Route Qty: 360 3RF Rx Instructions: use 4x/day with humalog and Lantus injection (DME) lancets [Microlet Lancet] Mis See Rx Instructions .Route Qty: 360 3RF Rx Instructions: Use up to 4x daily to test blood sugars sulfamethoxazole-trimethoprim [Bactrim] 400-80 mg tablet 1 tablet PO Q12H Qty: 6 0RF sertraline 100 mg tablet 75 mg PO DAILY ferrous sulfate 325 mg (65 mg iron) tablet,delayed release (DR/EC) 325 mg PO DAILY Qty: 90 0RF aspirin 81 mg tablet,delayed release (DR/EC) 81 mg PO DAILY rosuvastatin 20 mg tablet 40 mg PO DAILY Rx Instructions: pt takes 40 mg fluticasone propionate [Flonase Allergy Relief] 50 mcg/actuation spray,suspension 1 spray intranasal DAILY PRN (Reason: Cold Symptoms) Rx Instructions: administer into each nostril acetaminophen 325 mg Tablet 650 mg PO Q6HR Qty: 60 0RF lisinopril 10 mg tablet See Rx Instructions .ROUTE .COMPLEX Qty: 90 2RF Dose Instruction: TAKE 1 TABLET BY MOUTH DAILY Rx Instructions: TAKE 1 TABLET BY MOUTH DAILY (DME) blood-glucose meter [Contour Next Meter] [facility] See Rx Instructions .Route Qty: 1 0RF Rx Instructions: Use up to twice daily as directed (Dispense whatever is covered by patients insurance) glipizide 10 mg tablet extended release 24hr 10 mg PO BID Qty: 180 3RF torsemide 5 mg tablet 5 mg PO QAM Qty: 90 3RF (DME) BPAP Equipment See Rx Instructions .Route .MEDSUPPLY Qty: 1 0RF Rx Instructions: Rx: Resmed AirSense 11 BPAP at 14/10 cm H2O, size medium ResMed AirFit F20 full face mask, BPAP filters/tubing and heated humidity Dx: G47.33 Length of Need: 99+ months DME: Patient/Insurance to choose insulin lispro [Humalog KwikPen Insulin] 100 unit/mL insulin pen 1 sliding scale dose subcut USEASDIRECTD Qty: 15 3RF Rx Instructions: 151-200: 2 units 201-250: 4 units 251-300: 6 units call for blood sugar greater than 300 max dose 24 units per day Lantus Solostar U-100 Insulin 100 unit/mL (3 mL) insulin pen See Rx Instructions .ROUTE .COMPLEX Qty: 30 3RF Rx Instructions: inject 22 units subcutaneously qam as directed (DME) Contour Next Test Strips Strip See Rx Instructions .Route Qty: 200 3RF Rx Instructions: Use up to 4x/day to test blood sugars (Dispense whatever is covered by patients insurance) Follow-up/Referrals: Winston Guevara MD [Primary Care Provider] -
[2024-10-04] MEDS: SODIUM CHLORIDE 0.9% IV 1,000 ML 999 ML IV CONT (08:59)
[2024-10-04] MEDS: ONDANSETRON INJ 4 MG/2 ML VIAL IV PUSH (09:00)
[2024-10-04] MEDS: HYDROmorphone HCL INJ (*CRX) 1 MG/ML SYR 0.5 MG IV PUSH ×2 (09:00→12:42)
[2024-10-04 09:57] LABS: Lactic Acid Reflex 1.2 mmol/L (0.7-2.0)
[2024-10-04 11:43] LABS: Add Urine Microscopic? YES; Appearance Urine Cloudy (Clear); Bacteria Urine Rare /hpf; Bilirubin Urine Negative (Negative); Blood Urine Non-Hemolyzed Trace (Negative); Color Urine Yellow (Yellow); Glucose Urine UA 3+ mg/dL (Negative); Ketones Urine Trace mg/dL (Negative); Leukocyte Esterase Ur 2+ LEU/UL (Negative); Nitrate Urine Negative (Negative); Non Pathogenic Casts 0-2; Protein Urine 2+ mg/dL (Negative); Specific Grav Ur 1.022 (1.001-1.035); Squamous Epithelial Cell Urine Few /hpf (Few); WBC Urine >100 /hpf (0-3); pH Urine 6.5 (5.0-9.0)
== END 2024-10-04 15:19 | disposition home or self-care (01) ==
PROVIDERS: Emergency Provider Emergency Medicine; PCP Family Medicine
DX: N39.0 Urinary tract infection, site not specified (principal); R11.2 Nausea with vomiting, unspecified; Z87.440 Personal history of urinary (tract) infections; D64.9 Anemia, unspecified; F41.9 Anxiety disorder, unspecified; M19.90 Unspecified osteoarthritis, unspecified site; E11.9 Type 2 diabetes mellitus without complications; I10 Essential (primary) hypertension; G47.30 Sleep apnea, unspecified
CPT/HCPCS: 36415; 74176; 76856; 80053; 81001; 83605; 83690; 85025; 85055; 87086; 96361; 96365; 96375; 99284; J0696; J1171; J2405; J7030

== ENCOUNTER 2025-03-30 13:40 | Outpatient (CLI) | payer MEDICARE, SELFPAY ==
--- OUTSIDE RECORDS SUMMARY | 2025-03-30 13:47 | XMS_ITS | Encounter Summary ---
Author Organization [facility] Address [address] [place] [address] Care Team Providers Care Photoengraver Name Role Phone Winston Guevara MD Primary Care Provider [phone] Encounter Details Date Type Department Care Team (Late Contact Info) Description 08/11/2004 [facility]patient [facility] [address] [facility] 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 Gender Identity Not on file Sexual Orientation Not on file documented as of this encounter Plan of Treatment Upcoming Encounters Date Type Department Care Team (Late Contact Info) Description 03/30/2025 2:15 PM CDT Office Visit [facility] Oncology and Hematology - [place] [address] [facility] [address] [place] [address] Francisco Baker MD [address] [facility] [address] [place] [address] documented as of this encounter Visit Diagnoses Not on filedocumented in this encounter Care Teams Photoengraver Relationship Specialty Start Date End Date Winston Guevara MD [address] [facility] [address] [place] [address] PCP - General Family Practice 04/20/24 documented as of this encounter
--- OUTSIDE RECORDS SUMMARY | 2025-03-30 13:47 | XMS_ITS | Encounter Summary ---
Author Organization [facility] Address [address] [place] [address] Care Team Providers Care Digital Content Marketing Manager Name Role Phone Winston Guevara MD Primary Care Provider [phone] Encounter Details Date Type Department Care Team (Late Contact Info) Description 09/11/2004 Outpatient [facility] [address] [facility] 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 Oncology and Hematology - [place] [address] [facility] [address] [place] [address] Francisco Baker MD [address] [facility] [address] [place] [address] documented as of this encounter Visit Diagnoses Not on filedocumented in this encounter Care Teams Digital Content Marketing Manager Relationship Specialty Start Date End Date Winston Guevara MD [address] [facility] [address] [place] [address] PCP - General Family Practice 04/20/24 documented as of this encounter
--- OUTSIDE RECORDS SUMMARY | 2025-03-30 13:47 | XMS_ITS | Encounter Summary ---
Author Organization [facility] Address [address] [place] [address] Care Team Providers Care Marriage And Family Teacher Name Role Phone Winston Guevara MD Primary Care Provider [phone] Encounter Details Date Type Department Care Team (Late Contact Info) Description 08/21/2004 Outpatient [facility] [address] [facility] 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 Gender Identity Not on file Sexual Orientation Not on file documented as of this encounter Plan of Treatment Upcoming Encounters Date Type Department Care Team (Late Contact Info) Description 03/30/2025 2:15 PM CDT Office Visit [facility] Oncology and Hematology - [place] [address] [facility] [address] [place] [address] Francisco Baker MD [address] [facility] [address] [place] [address] documented as of this encounter Visit Diagnoses Not on filedocumented in this encounter Care Teams Marriage And Family Teacher Relationship Specialty Start Date End Date Winston Guevara MD [address] [facility] [address] [place] [address] PCP - General Family Practice 04/20/24 documented as of this encounter
--- OUTSIDE RECORDS SUMMARY | 2025-03-30 13:48 | XMS_ITS | Encounter Summary ---
Author Organization [facility] Address [address] [place] [address] Care Team Providers Care Employee Benefits Administrator Name Role Phone Winston Guevara MD Primary Care Provider [phone] Encounter Details Date Type Department Care Team (Late Contact Info) Description 09/16/2004 [facility]patient [facility] [address] [facility] 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 Gender Identity Not on file Sexual Orientation Not on file documented as of this encounter Plan of Treatment Upcoming Encounters Date Type Department Care Team (Late Contact Info) Description 03/30/2025 2:15 PM CDT Office Visit [facility] Oncology and Hematology - [place] [address] [facility] [address] [place] [address] Francisco Baker MD [address] [facility] [address] [place] [address] documented as of this encounter Visit Diagnoses Not on filedocumented in this encounter Care Teams Employee Benefits Administrator Relationship Specialty Start Date End Date Winston Guevara MD [address] [facility] [address] [place] [address] PCP - General Family Practice 04/20/24 documented as of this encounter
--- OUTSIDE RECORDS SUMMARY | 2025-03-30 13:48 | XMS_ITS | Referral Summary ---
Author Organization [facility] Address [address] [place] [address] Care Team Providers Care Hotel General Manager Name Role Phone Winston Guevara MD Primary Care Provider [phone] Encounters Date Type Department Care Team Description 02/18/2025 Telephone [facility] Obstetrics and Gynecology [address] [facility] 13th [place] [phone] Smith, Maria E surgery cancellation 02/15/2025 Telephone [facility] Obstetrics and Gynecology [address] [facility] 13th [place] [phone] Smith, Maria E cancel surgery? 01/27/2025 Telephone [facility] Obstetrics and Gynecology [address] [facility] 13th [place] [phone] Smith, Maria E surgery rescheduling 01/12/2025 Telephone [facility] Obstetrics and Gynecology [address] [facility] 13th [place] [address] [place] [phone] Smith, Maria E rescheduling surgery 01/05/2025 Results Follow-Up [facility] Obstetrics and Gynecology [address] [facility] 7th Floor [address] [place] [address] Kiran Knight MD Urine culture Urine, in and out catheter 12/22/2024 11:59 PM DIGITAL SALES DIRECTOR Anesthesia Event [facility] Operating Room [address] [place] [address] Parvin Gomez NP 01/01/2025 1:12 PM DIGITAL SALES DIRECTOR - 01/01/2025 11:59 PM DIGITAL SALES DIRECTOR Hospital Encounter [facility] [address] [place] [address] Frequent UTI; Dysuria Discharge Disposition: Discharge to home or self care 01/01/2025 12:00 PM DIGITAL SALES DIRECTOR Procedure visit [facility] Obstetrics and Gynecology [address] [facility] 7th Floor [address] [place] [phone] Kiran Knight MD Dysuria (Primary Dx); Frequent UTI; Vaginal atrophy; Complication of implanted vaginal mesh, initial encounter 12/31/2024 10:12 AM DIGITAL SALES DIRECTOR - 12/31/2024 11:59 PM DIGITAL SALES DIRECTOR Hospital Encounter [facility] Cardiac Diagnostic Lab [address] [facility] 8th [place] [address] Moderate aortic stenosis Discharge Disposition: Discharge to home or self care from Last 3 Months Allergies Active Allergy Reactions Criticality Noted Date Comments Kountze And Derivatives Other (See comments) Low Nose gets stuffy can't breathe out of nose Medications DULoxetine DR (CYMBALTA) 30 mg capsuleIndicati ons:Anxiety with Depression Take 1 tablet by mouth every morning 0 Active Jardiance 25 mg tabletIndicatio ns:type 2 diabetes mellitus Take 1 tablet (25 mg total) by mouth every morning Active eszopiclone (LUNESTA) 1 mg tabletIndicatio ns:Insomnia Take 1 tablet (1 mg total) by mouth nightly Active famotidine (PEPCID) 20 mg tablet Active glipiZIDE XL (GLUCOTROL XL) 10 mg 24 hr tabletIndicatio ns:type 2 diabetes mellitus Take 1 tablet (10 mg total) by mouth 2 (two) times a day 0 Active LANTUS 100 unit/mL (3 mL) pen for injectionIndica tions:T2DM Inject 22 Units under the skin every morning 2 Active lisinopriL (PRINIVIL,ZESTR IL) 10 mg tabletIndicatio ns:hypertension Take 1 tablet (10 mg total) by mouth every morning 0 Active rosuvastatin (CRESTOR) 40 mg tabletIndicatio ns:hyperlipidem ia Take 1 tablet (40 mg total) by mouth nightly Active sertraline (ZOLOFT) 50 mg tabletIndicatio ns:Anxiety with Depression Take 1.5 tablets (75 mg total) by mouth every morning Active estradioL (Estrace) 0.01 % (0.1 mg/gram) vaginal creamIndication s:Complication of implanted vaginal mesh, initial encounter,Vagin al atrophy Apply 1/4 applicator (1g) to the vagina 2-3 times per week (such as Saturday/Saturday /Saturday) 42.5 g 3 5 Active Additional Information Patient taking differently: 2 g vaginal 2 times weekly, Apply 1/4 applicator (1g) to the vagina 2-3 times per week (such as Saturday/Saturday/Saturday),Indications: Atrophic Vaginitis associated with Menopause, Informant: Self, Reported on 01/01/2025 torsemide (DEMADEX) 5 mg tabletIndicatio ns:hypertension Take 1 tablet (5 mg total) by mouth every morning 5 Active Belsomra 10 mg tabletIndicatio ns:Insomnia Take 1 tablet (10 mg total) by mouth nightly 5 Active metoprolol XL (TOPROL-XL) 25 mg extended release tabletIndicatio ns:hypertension Take 1 tablet (25 mg total) by mouth every morning 5 Active Microlet Lancet misc TEST BLOOD SUGAR FOUR TIMES DAILY 5 Active fluticasone propionate (FLONASE) 50 mcg/actuation nasal sprayIndication s:Allergic Rhinitis Administer 2 sprays into each nostril daily as needed for rhinitis or allergies 5 Active aspirin 81 mg enteric coated tabletIndicatio ns:prevention of thrombosis Take 1 tablet (81 mg total) by mouth every morning Active KRILL OIL ORALIndications :supplement Take 1 tablet by mouth with lunch Active CALCIUM ORALIndications :supplement Take 600 mg by mouth with lunch Active cyanocobalamin (Vitamin B-12) 1,000 mcg tabletIndicatio ns:Prevention of Vitamin B12 Deficiency Take 1 tablet (1,000 mcg total) by mouth with lunch Active ascorbic acid (vitamin C) 1,000 mg tabletIndicatio ns:Vitamin C Deficiency Take 1 tablet (1,000 mg total) by mouth with lunch Active cholecalciferol 25 mcg (1,000 unit) tabletIndicatio ns:Vitamin D Deficiency Take 1 tablet (1,000 Units total) by mouth with lunch Active insulin lispro (HumaLOG, ADMELOG) 100 unit/mL pen for injectionIndica tions:type 2 diabetes mellitus Inject under the skin 3 (three) times a day as needed (per admin instructions) Sliding scale per admin instructions Active CRANBERRY ORALIndications :urinary health Take 1 tablet by mouth with lunch Active ferrous sulfate (IRON ORAL)Indication s:supplement Take 65 mg by mouth every morning Active UNABLE TO FINDIndications :eye supplement Take 1 each by mouth with lunch Med Name: [facility] Active Active Problems Problem Noted Date Diagnosed Date Pelvic mass in female 01/25/2025 Complication of implanted vaginal mesh, initial encounter 11/27/2024 Vaginal atrophy 11/27/2024 Dysuria 11/27/2024 Frequent UTI 11/27/2024 Pelvic mass 11/19/2024 Coronary atherosclerosis 05/30/2020 Overview (11/19/2024): s/p LAD stent (11/2018). Asymptomatic. Peripheral vascular disease 05/30/2020 Dyspnea on exertion 10/09/2018 Palpitations 04/05/2018 Dizziness 02/16/2017 Tachycardia 02/16/2017 Electrocardiogram abnormal 04/18/2016 Benign hypertension 02/26/2016 Diabetes mellitus 02/26/2016 Overview (11/19/2024): Type 2 - without complication Hyperlipidemia 02/26/2016 Obstructive sleep apnea syndrome 02/26/2016 Immunizations Immunization Administration Dates Next Due Influenza, Quad, Adjuvantate d, Intramuscular 09/23/2023 Influenza, Quadrivalent, Hig h Dose, Preservative Free, Intrr 08/18/2022,10/19/2021,07/11/2020,07/11 Influenza, Quadrivalent, Spl it, Preservative Free, Intramuscular 10/09/2017 Influenza, Trivalent, High D ose, Split, Preservative Free, Intramuscular 07/14/2024,09/10/2019,11/21/2017,08/06 RSV Vaccine, Pref, Recombina nt, Subunit, Adjuvanted, PF, IM (Arexvy) 09/23/2023 Sars-CoV-2, Unspecified 04/18/2021 Tdap 03/27/2020,09/30/2014 ZOSTER Recombinant 12/30/2020,10/25/2020 Social History Tobacco Use Types Packs/Day Years Used Date Smoking Tobacco: Former Cigarettes 1 29 1 969 - 1998 Passive Smoke Exposure: Never Smokeless Tobacco: Never Tobacco Cessation:Counseling Given: Not Answered AUDIT-C Answer Date Recorded Q1: How often do you have a drink containing alcohol? Never 12/22/2024 Q2: How many drinks containi ng alcohol do you have on a typical day when you are drinking? Patient does not drink Q3: How often do you have si x or more drinks on one occasion? Never 12/22/2024 Personal Safety Answer Date Recorded Have you ever been in or are you currently in a harmful physical or emotional relationship or is someone making you feel afraid or unsafe? 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 Not on file Not on file Not on file Last Filed Vital Signs Vital Sign Reading Time Taken Comments Blood Pressure 113/73 01/01/2025 12:19 PM DIGITAL SALES DIRECTOR Pulse 69 12/22/2024 1:35 PM DIGITAL SALES DIRECTOR Temperature 36.7 C (98 F) 11/19/2024 8:58 AM DIGITAL SALES DIRECTOR Respiratory Rate 16 12/22/2024 1:35 PM DIGITAL SALES DIRECTOR Oxygen Saturation 100% 12/22/2024 1:35 PM DIGITAL SALES DIRECTOR Inhaled Oxygen Concentration - - Weight 72.6 kg (160 lb) 01/01/2025 12:19 PM DIGITAL SALES DIRECTOR Height 157.5 cm (5' 2) 01/01/2025 12:19 PM DIGITAL SALES DIRECTOR Body Mass Index 29.26 01/01/2025 12:19 PM DIGITAL SALES DIRECTOR Plan of Treatment Not on file Medical Devices Implanted Type Area [employer]otive Parts Person Device Identifier Shelf Expiration Date Model / Serial / Lot Stent Stent Heart Procedures Procedure Name Priority Date/Time Associated Diagnosis Comments URINE CULTURE Routine 01/01/2025 1:12 PM DIGITAL SALES DIRECTOR Frequent UTI Dysuria TRANSTHORACIC ECHO (TTE) COMPLETE W DOPPLER/CF W CONTRAST Routine 12/31/2024 11:47 AM DIGITAL SALES DIRECTOR Moderate aortic stenosis EGFR Timed 12/22/2024 4:09 PM DIGITAL SALES DIRECTOR Encounter for preoperative assessment POCT HEMOGLOBIN A1C Routine 12/22/2024 2 :53 PM DIGITAL SALES DIRECTOR LIPID PANEL Routine 12/31/2019 11:28 AM DIGITAL SALES DIRECTOR from Last 3 Months or Most Recently Relevant to Health Maintenance Results * Urine culture Urine, in and out catheter (01/01/2025 1:12 PM DIGITAL SALES DIRECTOR) Report Final Report: No growth Urine, in and out catheter 01/01/2025 1:12 PM DIGITAL SALES DIRECTOR 01/01/2025 5:01 PM DIGITAL SALES DIRECTOR Narrative [facility] - 01/02/2025 5:59 PM DIGITAL SALES DIRECTOR Testing performed by [facility] Microbiology Laboratory ([phone]) us Kiran Knight MD LAB MICROBIOLOGY - GENERAL ORDERABLES Final Result [facility] Department [place] [address] * TRANSTHORACIC ECHO (TTE) COMPLETE W DOPPLER/CF W CONTRAST (12/31/2024 11:47 AM DIGITAL SALES DIRECTOR) Anatomical Region Laterality Modality Ultrasound 12/31/2024 10:4 2 AM DIGITAL SALES DIRECTOR Narrative 01/01/2025 3:59 PM DIGITAL SALES DIRECTOR [facility] [place] [address] Transthoracic Echocardiographic Report Patient Name: IGOR KENNEY ANNE : 1945 (79y 1m) Gender: F Study Date: 12/31/2024 10:42:33 AM Ht(Inch): 62 Wt(Lb): 160.94 BSA: 1.79 Design Leader: GABRIELLA Ohara Location: [facility] Order Provider: JAMES DOLL Heart Rate: 68 BMI: 29.43 BP: 121 / 46 Quality: The study images were of technically adequate quality. Ref Provider: JAMES DOLL Fellow: Michael Salazar MD - PROCEDURES: Echocardiographic Report: ([id number], [id number]) Transthoracic complete echo with strain imaging and contrast, 2D, spectral and tissue Doppler, color flow Doppler, M-mode. Contrast: Contrast Enhancement was Employed: After initial imaging due to sub- optimal quality related to co-morbidity defined by patient's body habitus and used Perflutren contrast because 2 of 16 LV wall segments in any view not visualized, using the volume necessary to obtain adequate images. 0.8 ml Optison Administered, (2.2 ml wasted). INDICATIONS: I35.0 Nonrheumatic aortic (valve) stenosis. FINDINGS: Left Ventricle: Normal left ventricular size based on volume index. Normal LV wall thickness. There is hyperdynamic left ventricular systolic function. The Ejection Fraction (Reno's) is measured at 80 %. Cannot determine LA pressure and diastolic dysfunction grade. Right Ventricle: Normal right ventricular size. Normal right ventricular systolic function. Left Atrium: The left atrium is normal in size. Right Atrium: The right atrium is normal in size. Mitral Valve: Mitral annular calcification is present. There is mild mitral valve regurgitation. The mean transmitral gradient is: 2.46 mmHg. 1.1 cm mobile density on posterior mitral leaflet. Aortic Valve: Aortic cusps appear severely calcified. Moderate to severe aortic valve stenosis. The mean transaortic gradient is 19.93 mmHg. The aortic valve area by the continuity equation (using VTI) is 0.83 cm2. Aortic valve dimensionless index 0.26. Tricuspid Valve: No tricuspid regurgitation seen. Pulmonic Valve: No evidence of pulmonic regurgitation. Aorta: The aortic root is normal in size. The aortic root is normal in size when indexed. The ascending aorta is normal in size when indexed. IVC: IVC is normal in size. The IVC (inferior vena cava) was <2.1 cm and collapsibility >50%. The estimated RA pressure is 3 mmHg. CONCLUSIONS: 1. Normal LV wall thickness. There is hyperdynamic left ventricular systolic function. The Ejection Fraction (Reno's) is measured at 80 %. Cannot determine LA pressure and diastolic dysfunction grade. 2. Normal right ventricular size. Normal right ventricular systolic function. 3. Moderate biltateral MAC is present. There is mild mitral valve regurgitation. The mean transmitral gradient is: 2.46 mmHg. A mobile, small (1.1 cm x 0.7cm) echodensity seen on anteror mitral annulus. This is likely a calcified nodule. 4. Aortic cusps appear severely calcified. Moderate to severe aortic valve stenosis. The mean transaortic gradient is 19.93 mmHg and peak=40 mmHg. Aortic valve dimensionless index 0.26 and estimated PROSPER=1.0 cm2. MEASUREMENTS: 2D/MM Value Range Doppler Value Range LVIDd 2D 4.50 cm [ 3.80 - 5.20 ] AV Peak Chaim 2.90 m/s [ 1.00 - 1.70 ] LVIDs 2D 2.49 cm [ 2.20 - 3.50 ] AV Peak PG 33.64 IVSd 2D 0.83 cm [ 0.60 - 0.90 ] AV Mean PG 19.93 mmHg LVPWd 2D 0.82 cm [ 0.60 - 0.90 ] AV VTI 69.76 cm LV Thickness Ratio 1.01 LVOT Peak Chaim 0.91 m/s [ 0.70 - 1.10 ] LV FS 2D 44.70 % [ 27.00 - 45.00 ] LVOT Peak PG 3.31 LV Mass 2D 121.23 g LVOT Mean PG 1.33 mmHg LV Mass Index 2D 67.73 g/m2 LVOT VTI 18.29 cm RWT 0.36 LVOT Diam 2.01 cm EDV Mod BP 79.87 ml [ 46.00 - 106.00 ] PROSPER VTI 0.83 cm2 LV EDV Index 44.62 ml/m2 LVOT/AV VTI 0.26 - Dimensionless index (DVI) ESV Mod BP 16.36 ml [ 14.00 - 42.00 ] MV E Peak Chaim 0.94 m/s [ 0.60 - 1.30 ] EF Mod BP 80 % [ 54 - 74 ] MV A Peak Chaim 1.22 m/s [ 1.00 - 1.20 ] LA Length 2C 5.76 cm MV E/A 0.77 ratio [ 0.80 - 1.50 ] LA Length 4C 6.19 cm MV Peak Chaim 1.28 m/s LA Volume BP 55.12 ml MV Peak PG 6.55 LA Volume Index 30.79 ml/m2 [ 16.00 - 34.00 ] MV Mean PG 2.46 mmHg RV Base Dimen 2D 3.3 cm [ 2.5 - 4.2 ] MV VTI 38.24 cm TAPSE 2.30 cm [ 1.71 - 5.00 ] MV Decel Time 290.11 msec [ 104.00 - 258.00 ] RA Volume 16.71 ml Med E` Chaim 4.26 cm/sec [ 8.00 - 15.00 ] RA Volume Index 9.34 ml/m2 Lat E` Chaim 5.76 cm/sec [ 10.00 - 15.00 ] AoR Diam 2D 3.01 cm [ 2.70 - 3.70 ] Average E/E` 18.76 Ao Root Index 1.68 cm/m2 [ 1.00 - 2.00 ] RV S` 8.61 cm/sec Asc Ao Diam 2D 3.30 cm RA Pressure 3.00 mmHg Asc Ao Index 1.84 cm/m2 PV Peak Chaim 0.74 m/s [ 0.40 - 0.80 ] PV Peak PG 2.19 PI ED Chaim 77.72 m/sec - ATTESTATION: I have reviewed and interpreted the pertinent images and measurements of this study. I attest to the conclusions in the final report that is provided above. DISCLAIMER: The study images and the final report will be retained in the patient chart by the Echo Laboratory for the legally required time period. This chart constitutes the legal record of any testing performed. Electronically Signed By: Esequiel Dwyer M.D. 01/01/2025 3:59:47 PM DIGITAL SALES DIRECTOR Electronically Signed By: Esequiel Dwyer M.D. 01/01/2025 3:59:47 PM DIGITAL SALES DIRECTOR Procedure Note Esequiel Dwyer MD - 01/01/2025 [facility] Cardiac [place] [address] Transthoracic Echocardiographic Report Patient Name: IGOR KENNEY ANNE : 1945 (79y 1m) Gender: F Study Date: 12/31/2024 10:42:33 AM Ht(Inch): 62 Wt(Lb): 160.94 BSA: 1.79 Design Leader: GABRIELLA Ohara Location: [facility] Order Provider:JAMES DOLL Heart Rate: 68 BMI: 29.43 BP: 121 / 46 Quality: The study images were oftechnically adequate quality. Ref Provider: JAMES DOLL Fellow: Michael Rosales MD - PROCEDURES: Echocardiographic Report: ([id number]) Transthoracic complete echo withstrain imaging and contrast, 2D, spectral and tissue Doppler, color flow Doppler,M-mode. Contrast: Contrast Enhancement was Employed: After initial imaging due tosub- optimal quality related to co-morbidity defined by patient's body habitus and usedPerflutren contrast because 2 of 16 LV wall segments in any view not visualized,using the volume necessary to obtain adequate images. 0.8 ml Optison Administered, (2.2 mlwasted). INDICATIONS: I35.0 Nonrheumatic aortic (valve) stenosis. FINDINGS: Left Ventricle: Normal left ventricular size based on volume index. NormalLV wall thickness. There is hyperdynamic left ventricular systolic function. TheEjection Fraction (Reno's) is measured at 80 %. Cannot determine LA pressure anddiastolic dysfunction grade. Right Ventricle: Normal right ventricular size. Normal right ventricularsystolic function. Left Atrium: The left atrium is normal in size. Right Atrium: The right atrium is normal in size. Mitral Valve: Mitral annular calcification is present. There is mildmitral valve regurgitation. The mean transmitral gradient is: 2.46 mmHg. 1.1 cm mobiledensity on posterior mitral leaflet. Aortic Valve: Aortic cusps appear severely calcified. Moderate to severeaortic valve stenosis. The mean transaortic gradient is 19.93 mmHg. The aortic valvearea by the continuity equation (using VTI) is 0.83 cm2. Aortic valve dimensionlessindex 0.26. Tricuspid Valve: No tricuspid regurgitation seen. Pulmonic Valve: No evidence of pulmonic regurgitation. Aorta: The aortic root is normal in size. The aortic root is normal insize when indexed. The ascending aorta is normal in size when indexed. IVC: IVC is normal in size. The IVC (inferior vena cava) was <2.1 cm andcollapsibility >50%. The estimated RA pressure is 3 mmHg. CONCLUSIONS: 1. Normal LV wall thickness. There is hyperdynamic left ventricularsystolic function. The Ejection Fraction (Reno's) is measured at 80 %. Cannot determine LApressure and diastolic dysfunction grade. 2. Normal right ventricular size. Normal right ventricular systolicfunction. 3. Moderate biltateral MAC is present. There is mild mitral valveregurgitation. The mean transmitral gradient is: 2.46 mmHg. A mobile, small (1.1 cm x 0.7cm)echodensity seen on anteror mitral annulus. This is likely a calcified nodule. 4. Aortic cusps appear severely calcified. Moderate to severe aortic valvestenosis. The mean transaortic gradient is 19.93 mmHg and peak=40 mmHg. Aortic valvedimensionless index 0.26 and estimated PROSPER=1.0 cm2. MEASUREMENTS: 2D/MM Value Range DopplerValue Range LVIDd 2D 4.50 cm [ 3.80 - 5.20 ] AV Peak Vel2.90 m/s [ 1.00 - 1.70 ] LVIDs 2D 2.49 cm [ 2.20 - 3.50 ] AV Peak PG33.64 IVSd 2D 0.83 cm [ 0.60 - 0.90 ] AV Mean PG19.93 mmHg LVPWd 2D 0.82 cm [ 0.60 - 0.90 ] AV VTI69.76 cm LV Thickness Ratio 1.01 LVOT Peak Vel0.91 m/s [ 0.70 - 1.10 ] LV FS 2D 44.70 % [ 27.00 - 45.00 ] LVOT Peak PG3.31 LV Mass 2D 121.23 g LVOT Mean PG1.33 mmHg LV Mass Index 2D 67.73 g/m2 LVOT VTI18.29 cm RWT 0.36 LVOT Diam2.01 cm EDV Mod BP 79.87 ml [ 46.00 - 106.00 ] PROSPER VTI0.83 cm2 LV EDV Index 44.62 ml/m2 LVOT/AV VTI0.26 - Dimensionless index (DVI) ESV Mod BP 16.36 ml [ 14.00 - 42.00 ] MV E Peak Vel0.94 m/s [ 0.60 - 1.30 ] EF Mod BP 80 % [ 54 - 74 ] MV A Peak Vel1.22 m/s [ 1.00 - 1.20 ] LA Length 2C 5.76 cm MV E/A0.77 ratio [ 0.80 - 1.50 ] LA Length 4C 6.19 cm MV Peak Vel1.28 m/s LA Volume BP 55.12 ml MV Peak PG6.55 LA Volume Index 30.79 ml/m2 [ 16.00 - 34.00 ] MV Mean PG2.46 mmHg RV Base Dimen 2D 3.3 cm [ 2.5 - 4.2 ] MV VTI38.24 cm TAPSE 2.30 cm [ 1.71 - 5.00 ] MV Decel Cqpf575.11 msec [ 104.00 - 258.00 ] RA Volume 16.71 ml Med E` Vel4.26 cm/sec [ 8.00 - 15.00 ] RA Volume Index 9.34 ml/m2 Lat E` Vel5.76 cm/sec [ 10.00 - 15.00 ] AoR Diam 2D 3.01 cm [ 2.70 - 3.70 ] Average E/E`18.76 Ao Root Index 1.68 cm/m2 [ 1.00 - 2.00 ] RV S`8.61 cm/sec Asc Ao Diam 2D 3.30 cm RA Pressure3.00 mmHg Asc Ao Index 1.84 cm/m2 PV Peak Vel0.74 m/s [ 0.40 - 0.80 ] PV Peak PG 2.19 PI ED Chaim 77.72 m/sec - ATTESTATION: I have reviewed and interpreted the pertinent images and measurements ofthis study. I attest to the conclusions in the final report that is provided above. DISCLAIMER: The study images and the final report will be retained in the patientchart by the Echo Laboratory for the legally required time period. This chart constitutesthe legal record of any testing performed. Electronically Signed By: Esequiel Dwyer M.D. 01/01/2025 3:59:47 PM DIGITAL SALES DIRECTOR Electronically Signed By: Esequiel Dwyer M.D. 01/01/2025 3:59:47 PM DIGITAL SALES DIRECTOR James Doll MD CV ECHO PROCED URES Final Result * (ABNORMAL) eGFR (12/22/2024 4:09 PM DIGITAL SALES DIRECTOR) eGFR 31(L) >=60 mL/min/1. 73 m2 Comment: Interpretive Data Reference Interval Normal >/= 90 mL/min/1.73m2 Mildly decreased* 60 - 89 mL/min/1.73m2 Mildly to moderately decreased 45 - 59 mL/min/1.73m2 Moderately to severely decreased 30 - 44 mL/min/1.73m2 Severely decreased 15 - 29 mL/min/1.73m2 Kidney Failure < 15 mL/min/1.73m2 *Relative to young adult level Estimated glomerular filtration rate is determined by the 2020 CKD-EPI equation recommended by the National Kidney Foundation (A Unifying Approach to GFR Estimation: Recommendations of the NKF-ASK Task Force on Reassessing the Inclusion of Race in Diagnosing Kidney Disease, JASN 2020). The CKD-EPI equation should not be used for patients with unstable renal function and has not been validated in children and those over 70. Current interpretive data was last reviewed 2021. Blood 12/22/2024 4:09 PM DIGITAL SALES DIRECTOR 12/22/2024 5:08 PM DIGITAL SALES DIRECTOR Parvin Gomez PHOTOCOPY OPERATOR LAB BLOOD ORDERABL ES Final Result Performing Organization Address [facility] de Phone Number [facility] [place] [address] * (ABNORMAL) POCT hemoglobin A1c (12/22/2024 2:53 PM DIGITAL SALES DIRECTOR) Hgb A1C, POC 6.6(H) 4.0 - 5.6 % Est Average Gluc POC 143 mg/dL [facility] Comment: The ADA recommends reporting an estimated Average Glucose (eAG) with all Hemoglobin A1c results using the equation derived from a study of 507 normal and diabetic adults. Minority populations were underrepresented and children were not included. (Diabetes Care 31:2824-3469, 2008). The eAG is not equivalent to a fasting glucose. Blood 12/22/2024 2:53 PM DIGITAL SALES DIRECTOR 12/22/2024 2:53 PM DIGITAL SALES DIRECTOR us Notinfile Unknown POINT OF CARE TEST ORDERABLES Final Result Performing Organization Address [facility] de Phone Number [facility] [place] [address] * (ABNORMAL) Lipid panel (12/31/2019 11:28 AM DIGITAL SALES DIRECTOR) Triglycerides 231(H) 0 - 149 mg/dL [facility] Comment: National Lipid Association/NCEP Guidelines: Normal < 150 mg/dL Borderline high 150-199 mg/dL High 200-499 mg/dL Very High >=500 mg/dL Cholesterol 166 0 - 199 mg/dL [facility] Comment: National Lipid Association/NCEP Guidelines: Desirable < 200 mg/dL Borderline high: 200-239 mg/dL High Risk: >=240 mg/dL HDL Cholesterol 42 mg/dL [facility] Comment: Reference Ranges: Males: >=40 mg/dL Females: >=50 mg/dL LDL Cholesterol, Calc 78 0 - 129 mg/dL [facility] Comment: National Lipid Association/NCEP Guidelines: Optimal < 100 mg/dL Near Optimal 100-129 mg/dL Borderline high 130-159 mg/dL High >=160 mg/dL Cholesterol/HDL Ratio 4.0 [facility] Comment: Optimal < 3.5:1 High > 5:1 12/31/2019 11:2 8 AM DIGITAL SALES DIRECTOR 12/31/2019 11:39 AM DIGITAL SALES DIRECTOR Narrative Resulting Agency Comment CLI Miguelina [facility] LAB BLOOD ORDERABLES [place] l Result Performing Organization Address City/State/[facility] de Phone Number [address] [phone] from Last 3 Months or Most Recently Relevant to Health Maintenance Insurance [facility] [place] [address] [facility] Care Teams Hotel General Manager Relationship Specialty Start Date End Date Winston Guevara MD [address] [address] PCP - General Family Medicine 11/27/24
--- OUTSIDE RECORDS SUMMARY | 2025-03-30 13:48 | XMS_ITS | Clinical Summary ---
Author Organization [facility] Address [address] [place] [id number] Phone Care Team Providers Care Cook Candy Name Role Phone Luc Larson MD Primary Care Provider [phone] Allergies No known active allergies Medications brimonidine (ALPHAGAN) 0.15 % ophthalmic solution INSTILL 1 DROP IN BOTH EYES THREE TIMES DAILY 0 Active DULoxetine (CYMBALTA) [address] capsule TK 1 C PO QD 0 Active Jardiance 10 MG tablet Take 1 tablet by mouth 1 (one) time each day in the morning 0 Active fluticasone (FLONASE) 50 MCG/ACT nasal spray fluticasone propionate 50 mcg/actuation nasal spray,suspension SPRAY ONCE IN EACH NOSTRIL D Active glipiZIDE (GLUCOTROL XL) 10 MG 24 hr tablet TK 1 T PO BID 0 Active OneTouch Ultra test strip See administration instructions 0 Active Lantus 100 UNIT/ML injection ADMINISTER 19 UNITS UNDER THE SKIN EVERY MORNING 1 Active Insulin Syringe 29G X 1/2 0.3 ML misc U ONCE D UTD 0 Active Lancets (OneTouch Delica Plus Jrbilt14U) misc TEST DAILY DIRECTED 0 Active lisinopril (PRINIVIL) 10 MG tablet TK 1 T PO D 0 Active Loratadine 10 MG capsule loratadine 10 mg capsule Take by oral route. Active metoprolol succinate XL (TOPROL-XL) 25 MG 24 hr tablet TK 1 T PO QD 0 Active nortriptyline (PAMELOR) 25 MG capsule nortriptyline 25 mg capsule TK ONE C PO QHS Active oxybutynin XL (DITROPAN-XL) 10 MG 24 hr tablet daily Active sertraline (ZOLOFT) 100 MG tablet TK 1 AND 1/2 TS PO D 0 Active simvastatin (ZOCOR) 10 MG tablet simvastatin 10 mg tablet TK 1 T PO D IN THE ISAI Active SITagliptin (Januvia) 100 MG tablet Januvia 100 mg tablet TK 1 T PO QD Active Brilinta 90 MG tablet Take 90 mg by mouth 2 (two) times a day as directed 0 Active torsemide (DEMADEX) 5 MG tablet Take 5 mg by mouth 1 (one) time each day in the morning 0 Active traZODone (DESYREL) 50 MG tablet Take 50 mg by mouth every night 0 Active simvastatin (ZOCOR) 40 MG tablet Take 40 mg by mouth 1 (one) time each day 1 Active Blood Glucose Monitoring Suppl (Contour Next Monitor) w/Device kit 2 Active B-D UF III MINI PEN NEEDLES 31G X 5 MM misc 2 Active Lantus SoloStar 100 UNIT/ML injection 2 Active rosuvastatin (CRESTOR) 20 MG tablet 2 Active Active Problems No known active problems Immunizations Immunization Administration Dates Next Due Fluzone High-Dose 07/11/2020 Sars-cov-2, Unspecified 04/18/2021 Tdap 03/27/2020 Family History Medical History Relation Comments Diabetes Brother Heart disease Brother Hypertension Brother Diabetes Father Heart disease Father Schizophrenia Father Arthritis Mother Heart disease Mother Hypertension Mother Relation Status Comments Brother Father Mother Social History Tobacco Use Types Packs/Day Years Used Date Smoking Tobacco: Former Cigarettes Q uit: 10/28/1992 Smokeless Tobacco: Never Tobacco Cessation:Counseling Given: Not Answered Alcohol Use Standard Drinks/Week Comments Never 0 (1 standard drink = 0.6 oz pur e alcohol) AUDIT-C Answer Date Recorded Q1: How often do you have a drink containing alc ohol? Never 11/07/2020 Q2: How many drinks containi ng alcohol do you have on a typical day when you are drinking? Not asked 11/07/2020 Q3: How often do you have six or more drinks on one occasion? 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 CLERK Oxygen Saturation - - Inhaled Oxygen Concentration - - Weight 71.2 kg (157 lb) 10/10/2022 11:51 AM MEAT AND SEAFOOD CLERK Height 154.9 cm (5' 1) 10/10/2022 11:51 AM MEAT AND SEAFOOD CLERK Body Mass Index 29.66 10/10/2022 11:51 AM MEAT AND SEAFOOD CLERK Plan of Treatment Health Maintenance Due Date Last Done Comments Pneumococcal PPSV23/PCV13 65 + Years / Low and Medium Risk (1 of 4 - PCV) 1997 Influenza Vaccine (Season Ended) 2025 Insurance Care Teams Cook Candy Relationship Specialty Start Date End Date Luc Larson MD [address] [place] [address] PCP - General Internal Medicine 10/10/20
--- OUTSIDE RECORDS SUMMARY | 2025-03-30 13:48 | XMS_ITS | Encounter Summary ---
Author Organization [facility] Address [address] [place] [address] Care Team Providers Care Enterprise Systems Engineer Name Role Phone Winston Guevara MD Primary Care Provider Encounter Details Date Type Department Care Team (Latest Contact Info) Description 03/23/2025 Results Follow-Up [facility] [place] [address] [address] [address] [place] [address] Eugenia Jung, [address] [address] [address] [place] [address] CBC WITHOUT DIFFERENTIAL, PROTIME-INR, COMPREHENSIVE METABOLIC PANEL Social History Tobacco Use Types Packs/Day Years Used Date Smoking Tobacco: Former Cigarettes 1 20 Q uit: 05/04/1998 Smokeless Tobacco: Never Alcohol Use Standard Drinks/Week Comments Never 0 (1 standard drink = 0.6 oz pur e alcohol) Feeling Safe Answer Date Recorded Are you in a relationship wi th someone who hurts you emotionally and/or physically? 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 Garrett if needs nephrology consults. Her previous creatine was 1.7 on 12/22/24 documented in this encounter Plan of Treatment Upcoming Encounters Date Type Department Care Team (Late st Contact Info) Description 03/30/2025 2:15 PM CDT Office Visit [facility] On[facility] H[facility]ology - [place] [address] [facility] [address] [place] [address] [place] [address] [place] [address] [address] [place] [address] documented as of this encounter Visit Diagnoses Not on filedocumented in this encounter Care Teams Enterprise Systems Engineer Relationship Specialty Start Date End Date Winston Guevara MD [address] [place] [address] [address] [place] [id number] PCP - General Family Practice 04/20/24 documented as of this encounter
--- OUTSIDE RECORDS SUMMARY | 2025-03-30 13:48 | XMS_ITS | Clinical Summary ---
Author Organization [facility] Address [address] [place] [address] Phone Care Team Providers Care Lens Inspector Name Role Phone Winston Guevara MD Primary Care Provider [phone] Allergies No known active allergies Medications celecoxib (CeleBREX) 200 mg capsule Take 200 mg by mouth daily. Active sennosides-doc usate sodium (SENNA-S) 8.6-50 mg tablet Take 1 Tablet by mouth daily. Active ferrous sulfate 325 mg (65 mg iron) tablet Take 325 mg by mouth daily. Active polyethylene glycol 3350 (MIRALAX) 17 gram/dose Powder Take 17 Grams by mouth daily. Dissolve in 8 ounces of fluid and drink entire liquid Active rivaroxaban (Xarelto) 10 mg Tablet Take 10 mg by mouth daily with supper. Active OMEGA-3 ACID ETHYL ESTERS ORAL Take 1 Tablet by mouth daily. Active CALCIUM CARBONATE ORAL Take 1 Tablet by mouth daily. Active cyanocobalamin /folic ac/vit B6 (FOLIC ACID-VIT B6-VIT B12 ORAL) Take 1 Tablet by mouth daily. Active metoprolol succinate (TOPROL XL) 25 mg Extended Release 24 hour tablet Take 25 mg by mouth daily. Active sertraline (ZOLOFT) 100 mg tablet Take 75 mg by mouth daily. Active insulin glargine (LANTUS) 100 unit/mL injection Inject 22 Units by subcutaneous injection daily with breakfast. Active empagliflozin (Jardiance) 25 mg tablet Take 25 mg by mouth daily in the morning. Active aspirin (ANIKET CHEWABLE) 81 mg Tablet, Chewable Take 81 mg by mouth daily. Active mirtazapine (REMERON SolTab) 15 mg Tablet, Rapid Dissolve Place 15 mg inside cheek daily at bedtime. Active rosuvastatin (CRESTOR) 20 mg tablet Take 20 mg by mouth daily at bedtime. Active eszopiclone (LUNESTA) 2 mg Tablet Take 2 mg by mouth nightly as needed for Insomnia. Active suvorexant (Belsomra) 10 mg tablet Take by mouth nightly as needed for Insomnia. Active Insulin Tippo, Disposable, (BD Ultra-Fine Mini Pen Needle) 31 gauge x 3/16 Needle USE DIRECTED ONCE DAILY WITH LANTUS Active Blood-Glucose Meter (Contour Next Meter) Active DULoxetine (CYMBALTA) 30 mg Capsule, Delayed Release(E.C.) Take 30 mg by mouth daily. Active fluticasone propionate (FLONASE) 50 mcg/spray Leonard, Suspension nasal inhaler Administer in each nostril 1 time daily as needed. Active glipiZIDE (GLUCOTROL XL) 10 mg Extended Release 24 hour tablet Take 10 mg by mouth daily with breakfast. Active lisinopriL (PRINIVIL) 10 mg tablet Take 10 mg by mouth daily. Active loratadine 10 mg Capsule Take 10 mg by mouth 1 time daily as needed. Active torsemide (DEMADEX) 5 mg tablet Take 5 mg by mouth daily in the morning. Active insulin lispro (HUMALOG PEN SUBCUT) Inject by subcutaneous injection see administration instructions. Sliding Scale Active Active Problems Patient Care Coordination No te Formatting of this note migh t be different from the original. Hr Consultant- Meet Garrett MD [facility] No known active problems Encounters Date Type Department Care Team Description 03/25/2025 Telephone [facility] [address] [address] [address] [place] [phone] Meet Garrett MD Preop Exam 03/23/2025 Results Follow-Up [facility] [address] [address] [address] [place] [address] Eugenia Jung, NIKO CBC WITHOUT DIFFERENTIAL, PROTIME-INR, COMPREHENSIVE METABOLIC PANEL 03/18/2025 External Device Data STL ABSTRACTION Provider, Abstract 03/16/2025 External Device Data STL ABSTRACTION Provider, Abstract 03/16/2025 Travel 03/09/2025 Telephone [facility] [address] [address] [address] [place] [address] Meet Garrett MD Schedule C 03/09/2025 Orders Only [facility] [address] [address] [address] [place] [address] Provider, Abstract 02/17/2025 Results Follow-Up [address] [address] [address] [place] [address] Ely Fuentes, RODOLFO ECHO TRANSESOPHAGEAL W DOPPLER AND COLOR FLOW 02/12/2025 8:46 AM CDT - 02/12/2025 12:08 PM CDT Hospital Encounter [facility] Pre Post [address] [address] [place] [address] Meet Garrett MD [facility], Nurse Abnormal cardiovascular stress test Discharge Disposition: Home or Self Care 02/12/2025 Travel 02/03/2025 [address]phone [address] [address] [address] [place] [address] Meet Garrett MD Symptoms/ [place] 01/29/2025 Travel 01/14/2025 Telephone [address] [address] [address] [place] [address] Meet Garrett MD Schedule [place] for [place] office 01/14/2025 Orders Only [address] [address] [address] [place] [address] Provider, Abstract 01/14/2025 Abstract [address] [address] [address] [place] [address] Racquel Rene CMA from Last 3 Months Immunizations Immunization Administration Dates Next Due (ADACEL/BOOSTRIX)(10 YR UP) TDAP VACCINE, 0.5ML, IM 03/27/2020,09/30/2014 (AREXVY)(60 YR UP) RSV, ALYSHA MBINANT, PROTEIN SUBUNIT RSVPREF, ADJUVANT RECONSTITUTED, 0.5 ML, PF 09/23/2023 (SHINGRIX)(50 YRS UP) ZOSTER VACCINE RECOMBINANT, 0.5 ML, IM 12/30/2020,10/25/2020 INFLUENZA VACCINE HIGH DOSE QUADRIVALENT 65 YR UP PF IM 08/18/2022,10/19/2021,07/11/2020 INFLUENZA VACCINE QUADRIVALE NT 6 MOS UP PF IM 10/09/2017 INFLUENZA VACCINE QUADRIVALE NT ADJ 65 YR UP PF IM 09/23/2023 Influenza Vaccine High Dose 65+ Yrs IM 07/14/2024,09/10/2019,11/21/2017,2013 Typhoid Conjugate Vaccine (Non-us) 07/11/2020 Family History Medical History Relation Name Comments Heart Disease Brother 1 brent Diabetes Brother 2 linda Diabetes Brother 3 zd Diabetes Father No Known Problems Mother Relation Name Status Comments Brother 1 brent Brother 2 linda Alive Brother 3 zd Alive Father Mother Social History Tobacco Use Types Packs/Day Years Used Date Smoking Tobacco: Former Cigarettes 1 20 Q uit: 05/04/1998 Smokeless Tobacco: Never Tobacco Cessation:Counseling Given: Not [...] on file Legal Sex Female 4:16 AM 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 Gender Identity Not on file Sexual Orientation Not on file Last Filed Vital Signs Vital Sign Reading Time Taken Comments Blood Pressure 101/53 02/12/2025 11:45 AM CDT Pulse 66 02/12/2025 11:30 AM CDT Temperature 35.8 C (96.5 F) 02/12/2025 9:15 AM CDT Respiratory Rate 12 02/12/2025 10:38 AM CDT Oxygen Saturation 98% 02/12/2025 11:30 AM CDT Inhaled Oxygen Concentration - - Weight 72.6 kg (160 lb) 03/16/2025 3:14 PM CDT Height 157.5 cm (5' 2) 03/16/2025 3:14 PM CDT Body Mass Index 29.26 03/16/2025 3:14 PM CDT Plan of Treatment Upcoming Encounters Date Type Department Care Team (Late st Contact Info) Description 03/30/2025 2:15 PM CDT Office Visit [facility] Oncology and Hematology - [place] [address] [place] [address] Francisco Baker MD [address] [facility] [address] [place] [address] Health Maintenance Due Date Last Done Comments DIABETES ANNUAL FOOT EXAM 1965 DIABETES ANNUAL RETINAL EXAM 1965 DIABETES MICROALBUMIN ANNUAL SCREEN 1965 LDL CHOLESTEROL ANNUAL 1965 PNEUMOCOCCAL VACCINE 50+ YEA RS (1 of 2 - PCV) 1966 OSTEOPOROSIS SCREENING 2012 [place] Preventative Visit/Annual Wellness Visit 10/28/2024 DIABETES HBA1C Q 6 MONTHS 06/21/2025 12/22/2024 DTAP/TDAP/TD VACCINES (3 - T d or Tdap) 03/27/2030 03/27/2020, 09/30/2014 ZOSTER VACCINE Completed 12/30/2020, 10/25/2020 RSV VACCINE (60+ or ) Completed 09/23/2023 INFLUENZA VACCINE Completed 07/14/2024, , 08/18/2022, Additional history exists Medical Devices Implanted Type Area Derrick Boat Lever Operator Device Identifier Shelf Expiration Date Model / Serial / Lot Stent Stent Heart Sean And Screws Right: Leg Procedures Procedure Name Priority Date/Time Associated Diagnosis Comments VITAMIN B12 AND FOLATE Routine 10:30 AM CDT Chronic anemia IRON, TIBC, AND PERCENT SATURATION Routine 03/29/2025 10:30 AM CDT Chronic anemia FERRITIN Routine 03/29/2025 10:30 AM CDT Chronic anemia COMPREHENSIVE METABOLIC PANEL Routine 03/18/2025 2:29 PM CDT Abnormal cardiovascular stress test Benign hypertension Mixed hyperlipidemia PROTIME-INR Routine 03/18/2025 2:29 PM CDT Abnormal cardiovascular stress test Benign hypertension Mixed hyperlipidemia CBC WITHOUT DIFFERENTIAL Routine 03/18/2025 2:29 PM CDT Abnormal cardiovascular stress test Benign hypertension Mixed hyperlipidemia ECHO TRANSESOPHAGEAL W DOPPLER AND COLOR FLOW Routine 02/12/2025 10:39 AM CDT Abnormal cardiovascular stress test POC GLUCOSE Routine 02/12/2025 9:34 AM CDT ECHO COMPLETE Routine 12/31/2024 10:16 AM 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 from Last 3 Months Results * VITAMIN B12 AND FOLATE (03/29/2025 10:30 AM CDT) VITAMIN B12 1064 200 - 1100 pg/mL [facility] FOLATE, SERUM 12.0 ng/mL [facility] Comment: Reference Range Low: <3.4 Borderline: 3.4-5.4 Normal: >5.4 Test Performed at: [facility] [address] [place] [address] Sawyer Lee MD Blood 03/29/2025 10:3 0 AM CDT 03/29/2025 10:30 AM CDT Francisco Baker MD CHEMISTRY ORDERABLES Final Resu lt [facility] [phone] [facility] [address] [place] [address] * IRON, TIBC, AND PERCENT SATURATION (03/29/2025 10:30 AM CDT) IRON 82 45 - 160 mcg/dL [facility] TIBC 279 250 - 450 mcg/dL (calc) [facility] IRON % SATURATION 29 16 - 45 % (calc) [facility] Comment: Test Performed at: [facility] [address] [place] [address] Sawyer Lee MD Blood 03/29/2025 10:3 0 AM CDT 03/29/2025 10:30 AM CDT Francisco Baker MD CHEMISTRY ORDERABLES Final Resu lt Performing Organization Address City/[facility]/ZIP Co de Phone Number [facility] [phone] [facility] [address] [place] [address] * FERRITIN (03/29/2025 10:30 AM CDT) FERRITIN 90 16 - 288 ng/mL [facility] Comment: Test Performed at: [facility] [address] [place] [address] EliLenore Lee MD Blood 03/29/2025 10:3 0 AM CDT 03/29/2025 10:30 AM CDT Francisco Baker MD CHEMISTRY ORDERABLES Final Resu lt Performing Organization Address [facility] Co de Phone Number [facility] [phone] [facility] [address] * PROTIME-INR (03/18/2025 2:29 PM CDT) INR 1.0 [facility] Comment: Reference Range 0.9-1.1 Moderate-intensity Warfarin Therapy 2.0-3.0 Higher-intensity Warfarin Therapy 3.0-4.0 PROTIME 11.2 9.0 - 11.5 sec [facility] Comment: For additional information, please refer to http://education.[employer] [facility]/faq/OWX996 (This link is being provided for informational/ educational purposes only.) Test Performed at: [facility] [address] [place] [address] Sawyer Lee Blood 03/18/2025 2:29 PM CDT 03/18/2025 2:29 PM CDT Meet Garrett MD HEMATOLOGY ORDERABLES Final R esult [facility] [phone] [facility] [address] [place] [address] * (ABNORMAL) CBC WITHOUT DIFFERENTIAL (03/18/2025 2:29 PM CDT) WBC 5.2 3.8 - 10.8 Thousand/u L [facility] RBC 3.99 3.80 - 5.10 Million/uL [facility] HEMOGLOBIN 12.7 11.7 - 15.5 g/dL [facility] HEMATOCRIT 38.5 35.0 - 45.0 % [facility] MCV 96.5 80.0 - 100.0 fL [facility] MCH 31.8 27.0 - 33.0 pg [facility] MCHC 33.0 32.0 - 36.0 g/dL [facility] Comment: For adults, a slight decrease in the calculated MCHC value (in the range of 30 to 32 g/dL) is most likely not clinically significant; however, it should be interpreted with caution in correlation with other red cell parameters and the patient's clinical condition. RDW 13.5 11.0 - 15.0 % [facility] PLATELETS 106(L) 140 - 400 Thousand/u L [facility] MPV 10.5 7.5 - 12.5 fL [facility] Comment: Ovalocytes 1 + Polychromasia 1 + Review of the peripheral smear reveals decreased numbers of platelets. Test Performed at: [facility] [address] [place] [address] Sawyer Lee MD Blood 03/18/2025 2:29 PM CDT 03/18/2025 2:29 PM CDT Meet Garrett MD HEMATOLOGY ORDERABLES Final R esult [facility] [phone] [facility] [address] [facility] [place] [address] * (ABNORMAL) COMPREHENSIVE METABOLIC PANEL (03/18/2025 2:29 PM CDT) GLUCOSE 114(H) 65 - 99 mg/dL [facility] Comment: Fasting reference interval For someone without known diabetes, a glucose value between 100 and 125 mg/dL is consistent with prediabetes and should be confirmed with a follow-up test. BUN 32(H) 7 - 25 mg/dL [facility] CREATININE 2.14(H) 0.60 - 1.00 mg/dL [facility] GFR 23(L) > OR = 60 mL/min/1.7 3m2 [facility] BUN/CREAT RATIO 15 6 - 22 (calc) [facility] SODIUM 139 135 - 146 mmol/L [facility] POTASSIUM 4.1 3.5 - 5.3 mmol/L [facility] CHLORIDE 104 98 - 110 mmol/L [facility] CO2 29 20 - 32 mmol/L [facility] CALCIUM 8.9 8.6 - 10.4 mg/dL [facility] TOTAL PROTEIN 6.3 6.1 - 8.1 g/dL [facility] ALBUMIN 4.0 3.6 - 5.1 g/dL [facility] GLOBULIN 2.3 1.9 - 3.7 g/dL (calc) [facility] ALBUMIN/GLOBULIN RATIO 1.7 1.0 - 2.5 (calc) [facility] BILIRUBIN TOTAL 0.4 0.2 - 1.2 mg/dL [facility] ALKALINE PHOSPHATASE 81 37 - 153 U/L [facility] AST 16 10 - 35 U/L [facility] ALT 13 6 - 29 U/L [facility] Comment: Test Performed at: [facility] [address] [facility] [place] [address] Sawyer Lee MD Blood 03/18/2025 2:29 PM CDT 03/18/2025 2:29 PM CDT Meet Garrett MD CHEMISTRY ORDERABLES Final Re sult [facility] [phone] [facility] [address] [place] [address] * ECHO TRANSESOPHAGEAL W DOPPLER AND COLOR FLOW (02/12/2025 10:39 AM CDT) EJECTION FRACTION 65 INTERFACE SYSTEM 02/12/2025 11:0 1 AM CDT Narrative INTERFACE SYSTEM - 02/12/2025 12:14 PM CDT [facility] [address] [address] [email or web address] Transesophageal Echocardiogram Patient: Rosalina Kenney Study ID: [id number] Gender: F : 1945 Age: 79 Race: CAU Height 157.5cm Study Date: 02/12/2025 Weight: 72.6kg Access. 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 STUDY CONCLUSIONS: SUMMARY: - Left ventricle: The cavity size was normal. Wall thickness was increased in a pattern of mild LVH. Global systolic function is normal. The estimated ejection fraction is 60-65%. For Epic reporting: the left ventricular ejection fraction is 65% . - Aortic valve: There is calcification. Mobility is restricted. There was severe stenosis. Mild regurgitation. - Mitral valve: Mild regurgitation. - Left atrium: The atrium is normal in size. No evidence of thrombus in the atrium or atrial appendage. - Right ventricle: The cavity size is normal. Systolic function is normal. - Tricuspid valve: Mild regurgitation. Cardiac Anatomy: LEFT VENTRICLE: The cavity size was normal. Wall thickness was increased in a pattern of mild LVH. Global systolic function is normal. The estimated ejection fraction is 60-65%. For Epic reporting: the left ventricular ejection fraction is 65% . Wall motion is normal; there are no regional wall motion abnormalities. AORTIC VALVE: Trileaflet. There is calcification. Mobility is restricted. There was severe stenosis. Mild regurgitation. The mean systolic gradient is 20mm Hg. The peak systolic gradient is 40mm Hg. The LVOT to aortic valve VTI ratio is 0.28. The ratio of LVOT to aortic valve peak velocity is 0.31. AORTA: The aorta was normal. MITRAL VALVE: The annulus is mildly calcified. Mild regurgitation. LEFT ATRIUM: The atrium is normal in size. No evidence of thrombus in the atrium or atrial appendage. ATRIAL SEPTUM: The septum is normal. PULMONARY VEINS: Well visualized, appeared normal. RIGHT VENTRICLE: The cavity size is normal. Systolic function is normal. PULMONIC VALVE: Structurally normal valve. No significant regurgitation. TRICUSPID VALVE: Structurally normal valve. Mild regurgitation. RIGHT ATRIUM: The atrium was normal in size. SYSTEMIC VEINS: Superior vena cava: The SVC is normal. PERICARDIUM: There is no pericardial effusion. Measurements LVOT Value Peak mimi, S 0.96 m/sec VTI, S 21.0 cm Aortic valve Value Peak v, S 3.1 m/sec Mean v, S 2.07 m/sec VTI, S 74.9 cm Mean grad, S 20 mm Hg Peak grad, S 40 mm Hg LVOT/AV, VTI ratio 0.28 LVOT/AV, Vpeak ratio 0.31 Legend: (L) and (H) sohail values outside specified reference range. (N) james values inside specified reference range. Procedure data: [facility] Procedure information: The patient arrived at the laboratory in a fasting state. Intravenous access was obtained. Surface ECG leads and pulse oximetric signals were monitored. Moderate sedation was administered by cardiology staff. A transesophageal echocardiogram was performed. Topical anesthesia was obtained using viscous lidocaine. A transesophageal probe was insertedby the attending cardiologistwithout difficulty. Study completion: There were no complications. Administered medications: Fentanyl. Midazolam. Diagnostic transesophageal echocardiogram. 2D, spectral Doppler, and color Doppler. Birthdate: Patient birthdate: 1945. Age: Patient is 79year(s) old. Sex: gender: female. Height: 157.5cm. 62in. Weight: 72.6kg. 160lb. Body mass index: 29.3kg/m^2. Body surface area: 1.74m^2. Blood pressure: 111/51 Study date: Study date: 02/12/2025. Study time: 11:01 AM. Prepared and Electronically Authenticated Meet Garrett [id number] Procedure Note Meet Garrett MD - 02/12/2025 [facility] [address] [address] [email or web address] Transesophageal Echocardiogram Patient: Rosalina Kenney Study ID:[id number] Gender: F :1945 Age: 79 Race: CAU Height 157.5cm Study Date:02/12/2025 Weight: 72.6kg Access. #:[id number] BP: 111 /51 *Referring Physician:* Meet Garrett Omar *Ordering Physician:* Meet Garrett *Director Of Safety And Security:Annemarie Hill dry food products mixer: Nurse: Indications: Abnormal cardiovascular stress test. STUDY CONCLUSIONS: SUMMARY: - Left ventricle: The cavity size was normal. Wall thickness was increasedin a pattern of mild LVH. Global systolic function is normal. Theestimated ejection fraction is 60-65%. For Epic reporting: the left ventricular ejection fraction is 65% . - Aortic valve: There is calcification. Mobility is restricted. Therewas severe stenosis. Mild regurgitation. - Mitral valve: Mild regurgitation. - Left atrium: The atrium is normal in size. No evidence of thrombus inthe atrium or atrial appendage. - Right ventricle: The cavity size is normal. Systolic function isnormal. - Tricuspid valve: Mild regurgitation. Cardiac Anatomy: LEFT VENTRICLE: The cavity size was normal. Wall thickness was increasedin a pattern of mild LVH. Global systolic function is normal. The estimated ejection fraction is 60-65%. For Epic reporting: the left ventricularejection fraction is 65% . Wall motion is normal; there are no regional wallmotion abnormalities. AORTIC VALVE: Trileaflet. There is calcification. Mobility isrestricted. There was severe stenosis. Mild regurgitation. The mean systolicgradient is 20mm Hg. The peak systolic gradient is 40mm Hg. The LVOT to aorticvalve VTI ratio is 0.28. The ratio of LVOT to aortic valve peak velocity is0.31. AORTA: The aorta was normal. MITRAL VALVE: The annulus is mildly calcified. Mild regurgitation. LEFT ATRIUM: The atrium is normal in size. No evidence of thrombus inthe atrium or atrial appendage. ATRIAL SEPTUM: The septum is normal. PULMONARY VEINS: Well visualized, appeared normal. RIGHT VENTRICLE: The cavity size is normal. Systolic function isnormal. PULMONIC VALVE: Structurally normal valve. No significantregurgitation. TRICUSPID VALVE: Structurally normal valve. Mild regurgitation. RIGHT ATRIUM: The atrium was normal in size. SYSTEMIC VEINS: Superior vena cava: The SVC is normal. PERICARDIUM: There is no pericardial effusion. Measurements LVOT Value Peak mimi, S 0.96 m/sec VTI, S 21.0 cm Aortic valve Value Peak v, S 3.1 m/sec Mean v, S 2.07 m/sec VTI, S 74.9 cm Mean grad, S 20 mm Hg Peak grad, S 40 mm Hg LVOT/AV, VTI ratio 0.28 LVOT/AV, Vpeak ratio 0.31 Legend: (L) and (H) sohail values outside specified reference range. (N) james values inside specified reference range. Procedure data: [facility] Procedure information: [facility] Intravenous access was obtained. Surface ECG leadsand pulse oximetric signals were monitored. Moderate sedation wasadministered by cardiology staff. A transesophageal echocardiogram was performed.Topical anesthesia was obtained using viscous lidocaine. A transesophageal probewas insertedby the attending cardiologistwithout difficulty. Studycompletion: There were no complications. Administered medications: Fentanyl. Midazolam. Diagnostic transesophageal echocardiogram. 2D,spectral Doppler, and color Doppler. Birthdate: Patient birthdate: 1945.Age: Patient is 79year(s) old. Sex: gender: female. Height:157.5cm. 62in. Weight: 72.6kg. 160lb. Body mass index: 29.3kg/m^2. Bodysurface area: 1.74m^2. Blood pressure: 111/51 Study date: Study date: 02/12/2025. Study time: 11:01 AM. Prepared and Electronically Authenticated Meet Garrett [id number] us Meet Garrett MD US ORDERABLES Final Result Performing Organization Address City/[facility]/ZIP Co de Phone Number INTERFACE SYSTEM Refer to clinic/hospital department * (ABNORMAL) POC GLUCOSE (02/12/2025 9:34 AM CDT) [facility] GLUCOSE POC 128(H) 74 - 99 mg/dL 02/12/2025 9:34 AM CDT [facility] [place] SPECIMEN SOURCE, GLUCOSE POC Whole Blood 02/12/2025 9:34 AM CDT [facility] Blood, whole 02/12/2025 9:34 AM CDT 02/12/2025 9:42 AM CDT Meet Garrett MD POINT OF CARE TESTING Final R esult Performing Organization Address City/[facility] Co de Phone Number [facility] CLIA # [id number] [facility] [address] [place] [id number] * ECHO COMPLETE - CONTRAST AND STRAIN IF INDICATED (12/31/2024 10:16 AM 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) us Abstract Provider US ORDERABLES Final Result Performing Organization Address City/[facility] Co de Phone Number [facility] [place] CLIA# [id number] [address] [facility] [address] [place] [address] from Last 3 Months Insurance [facility] [address] [address] [id number] Advance Directives For more information, please contact: [phone] * Full Code (Latest Code Status on File) Date Activated Date Inactivated Comments 02/12/2025 9:05 AM 02/12/2025 2:13 PM Care Teams Lens Inspector Relationship Specialty Start Date End Date Winston Guevara MD [address] [place] [address] [address] PCP - General Family Practice 04/20/24
--- OUTSIDE RECORDS SUMMARY | 2025-03-30 13:48 | XMS_ITS | Encounter Summary ---
Author Organization [facility] Address [address] [place] [address] Care Team Providers Care Retail Account Executive Name Role Phone Winston Guevara MD Primary Care Provider [phone] Encounter Details Date Type Department Care Team (Late Contact Info) Description 10/19/2004 Outpatient [facility] [address] 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 Gender Identity Not on file Sexual Orientation Not on file documented as of this encounter Plan of Treatment Upcoming Encounters Date Type Department Care Team (Late Contact Info) Description 03/30/2025 2:15 PM CDT Office Visit [facility] Oncology and Hematology - [place] [address] [facility] [address] [place] [address] Francisco Baker MD [address] [facility] [address] [place] [address] documented as of this encounter Visit Diagnoses Not on filedocumented in this encounter Care Teams Retail Account Executive Relationship Specialty Start Date End Date Winston Guevara MD [address] [facility] [address] [place] [address] PCP - General Family Practice 04/20/24 documented as of this encounter
--- OUTSIDE RECORDS SUMMARY | 2025-03-30 13:48 | XMS_ITS | Data Portability ---
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 Phone PADMINI KIM Primary Care Provider Assessment Encounter Date Assessment Date Assessment LastModified by Organization Details LastModified Time 09/24/2023 09/24/2023 Patient Examined by LOBO Soria, Also Documentation reviewed and approved by supervising physician carlos Not available 09/24/2023 10:53:19 03/18/2024 03/18/2024 Patient Examined by LOBO Soria, Also Documentation reviewed and approved by supervising physician reuben Not available 03/16/2024 15:52:09 Plan of Treatment Reminders Order Date Submit Date Provider Last Modified By Organization Details Last Modified Time Details Appointments ESTABLISH ED PATIENT DETAILED 2024 11:00A M Meet Hill i, MD Not available Not available Not available Lab None recorded. Referral None recorded. Procedures None recorded. Surgeries None recorded. Imaging None recorded. Medication Orders rosuvasta tin 40 mg tablet 2022 023 [facility][id number], [address] [place], [place], [id number], 09/24/2023 10:59:42 metoprolo l succinate ER 25 mg tablet,ex tended release 24 hr 2022 023 [id number], [address], [place], [id number], 09/24/2023 10:59:44 Patient TargetsNo targets recorded. Patient Instructions Encounter Date Encounter Id Patient Instructions Last Modified By Organization Details Last Modified Time 09/24/2023 [id number] Low cholesterol diet advised Low sodium diet advised. [email or web address] Not available 09/24/2023 10:59:21 03/18/2024 [id number] Low cholesterol diet advised Low sodium diet advised. [email or web address] Not available 03/18/2024 10:21:54 10/27/2024 [id number] Weight loss 20 pounds Exercise advised Low cholesterol diet advised Low sodium diet advised. [email or web address] Not available 10/27/2024 09:24:11 01/07/2025 [id number] Exercise advised Low cholesterol diet advised Low sodium diet advised. [email or web address] Not available 01/07/2025 17:17:01 Reason for Referral None Reported. Results Created Date Observation Date Name Description Value Unit Range Abnormal Flag Note LastModifiedBy Organization Detail LastModifiedTime 09/28/2009/24/2023 elect rocar diogr am No observ ation record ed. [email or web address] Not Available 2022 09:43:31 10/05/20 23 10/02/2023 [place], [facility] ardio gram No observ ation record ed. [facility] [address], [place], [address], 10/06/2023 13:21:31 10/16/20 23 10/04/2023 US, lucero id arter y No observ ation record ed. [email or web address] Not Available 2023 10:18:25 03/24/20 24 03/18/2024 elect rocar diogr am No observ ation record ed. [email or web address] Not Available 2023 15:54:44 10/29/19 25 10/27/2024 elect rocar diogr am No observ ation record ed. [email or web address] Not Available 2024 13:21:49 10/29/19 25 10/04/2024 CT, abdom en + pelvi s, w/o contr ast No observ ation record ed. [email or web address] Not Available 2024 15:14:14 10/29/19 25 10/04/2024 CT, abdom en + pelvi s, w/o contr ast No observ ation record ed. [email or web address] Not Available 2024 15:25:16 01/05/20 25 12/31/2024 US, echoc ardio gram No observ ation record ed. [email or web address] Not Available 2024 13:00:24 02/25/20 25 02/19/2025 , echoc ardio gram No observ ation record ed. [email or web address] Not Available 02/24 13:11:10 Result Notes None recorded. Problems Name Problem SNOMED Code Status Onset Date Resolution Date Notes Provider Name and Address Organization Details Recorded Time Electrocar diogram abnormal 892995672 Active 2015 Marbella daniel, [place] - [facility] 6 11:34:10 Dizziness 776546172 Active 2016 Farhat Dove [facility], [place] - [facility] 7 13:05:17 Tachycardi a 8270907 Active 2016 Farhat Dove [facility], [place] - [facility] 7 13:05:34 Palpitatio ns 57233878 Active 2017 Farhat Dove [facility], [place] - [facility] 8 18:53:01 Dyspnea on exertion 17589967 Active 2017 Jessica Peludat [facility], [place] - [facility] 8 10:57:41 Benign hypertensi on 75288419 Active 2015 Marbella daniel, [place] - [facility] 6 11:25:17 Hyperlipid emia 56123189 Active 2015 Marbella Elizabeth null, [place] - [facility] 6 11:25:36 Diabetes mellitus 99224382 Active 2015 Type 2 - [facility]ati [facility] [place] - [facility] 6 11:26:38 History of depression 366458714 Active 2015 Unspecifie d Marbella Elizabeth [place], [place] - [facility] 6 11:27:21 Obstructiv e sleep apnea syndrome 24947639 Active 2015 Marbella Elizabeth [place], [place] - [facility] 6 11:27:31 Coronary atheroscle rosis 411705199 Active 2019 s/p LAD stent (11/2018). Asymptomat ic. Farhat Dove null, [place] - [facility] 0 08:11:20 Peripheral vascular disease 818491425 Active 2019 Farhat Dove null, [place] - [facility] 0 08:11:30 Problem Notes None recorded. Medical Equipment None Reported. Allergies No known drug allergies Medications Name Sig Start Date Stop Date Status Note LastModified by Organization Details LastModified Time insulin syrg mis 1ml/29g 09/22 completed Not Available Not Available Not Available insulin syringe/u -100/0.3m l/29g x 1 /2 29g x 1/2 0.3 ml misc 09/22 completed Not Available Not Available Not Available celecoxib 200 mg capsule as needed active Not Available Not Available No t Available doxycycli ne hyclate 100 mg capsule TAKE 1 CAPSULE BY MOUTH TWICE DAILY WITH FOOD UNTIL GONE 03/18 completed Not Available Not Available Not Available trazodone 50 mg tablet TAKE 1 TO 2 TABLETS BY MOUTH AT BEDTIME FOR SLEEP active Not Available Not Available No t Available oxybutyni n chloride ER 10 mg tablet,ex tended release 24 hr 06/27 completed Not Available Not Available Not Available azithromy olena 250 mg tablet 12/22 completed Not Available Not Available Not Available fluconazo le 150 mg tablet 12/27 completed pt not taking 12/27/20 Not Available Not Available Not Available sulfameth oxazole 400 mg-trimet hoprim 80 mg tablet TAKE 1 TABLET BY MOUTH EVERY 12 HOURS 03/02 completed Not Available Not Available Not Available cephalexi n 250 mg capsule 03/02 completed Not Available Not Available Not Available glipizide ER 10 mg tablet, extended release 24 hr TAKE 1 TABLET BY MOUTH DAILY active Not Available Not Available No t Available ondansetr on HCl 4 mg tablet 03/02 completed Not Available Not Available Not Available glipizide 10 mg tablet 03/02 completed Not Available Not Available Not Available clonazepa m 0.5 mg tablet once daily 03/18 completed Not Available Not Available Not Available sertralin e 100 mg tablet TAKE 1 TABLET BY MOUTH DAILY 10/24 completed Not Available Not Available Not Available simvastat in 10 mg tablet 1 tab qd 12/27 completed Not Available Not Available Not Available metformin 850 mg tablet Take 1 tablet twice a day by oral route. 04/20 completed Not Available Not Available Not Available Lantus U-100 Insulin 100 unit/mL subcutane ous solution ADMINIST ER 22 UNITS UNDER THE SKIN EVERY MORNING active Not Available Not Available No t Available torsemide 10 mg tablet 10/24 completed Not Available Not Available Not Available ciproflox acin 250 mg tablet 12/25 completed No longer take it 11/11/18 : MA Not Available Not Available Not Available ciproflox acin 500 mg tablet TAKE 1 TABLET BY MOUTH EVERY 24 HOURS 01/05 completed Not Available Not Available Not Available sulfameth oxazole 800 mg-trimet hoprim 160 mg tablet TAKE 1 TABLET BY MOUTH EVERY 12 HOURS FOR 5 DAYS 10/24 completed Not Available Not Available Not Available triamcino lone acetonide 0.1 % topical cream PRN 12/27 completed Not Available Not Available Not Available amoxicill in 500 mg tablet TAKE 1 TABLET BY MOUTH EVERY 12 HOURS active Not Available Not Available No t Available simvastat in 40 mg tablet TAKE 1 TABLET BY MOUTH EVERY DAY at bedtime 12/22 completed To start Crestor 10 mg po qd Not Available Not Available Not Available nortripty line 25 mg capsule Take 3 capsules every day by oral route at bedtime. active Not Available Not Available No t Available famotidin e 20 mg tablet 03/02 completed Not Available Not Available Not Available torsemide 5 mg tablet TAKE 1 TABLET BY MOUTH EVERY MORNING active Not Available Not Available No t Available nortripty line 75 mg capsule Take 1 capsule every day by oral route at bedtime. 05/20 completed Not Available Not Available Not Available simvastat in 20 mg tablet Take 1 tablet every day by oral route. 12/27 completed Not Available Not Available Not Available metformin 1,000 mg tablet 1 tab bid 12/25 completed NO LONGER TAKING;A L 10/10/18 Not Available Not Available Not Available nystatin 100,000 unit/gram topical cream active Not Available Not Available Not Available lisinopri l 10 mg tablet TAKE 1 TABLET BY MOUTH DAILY active Not Available Not Available No t Available mometason e 50 mcg/actua tion nasal spray [place] 2 sprays every day by intranas al route. active Not Available Not Available No t Available hydrocort isone 2.5 % topical cream 03/23 completed Not Available Not Available Not Available alcohol swabs 12/28 completed Not Available Not Available Not Available mupirocin 2 % topical ointment PRN 12/27 completed Not Available Not Available Not Available mirtazapi ne 15 mg tablet TAKE 1 TABLET BY MOUTH EVERY NIGHT AT BEDTIME active Not Available Not Available No t Available triamtere ne 75 mg-hydroc hlorothia zide 50 mg tablet 11/06 completed Not Available Not Available Not Available metoprolo l succinate ER 25 mg tablet,ex tended release 24 hr TAKE 1 TABLET BY MOUTH EVERY DAY active Not Available Not Available No t Available zaleplon 5 mg capsule TAKE 1 CAPSULE BY MOUTH EVERY NIGHT AT BEDTIME active Not Available Not Available No t Available estradiol 0.01% (0.1 mg/gram) vaginal cream as directed active Not Available Not Available No t Available zolpidem 10 mg tablet Take 0.5 tablets every day by oral route at bedtime. 04/08 completed Not Available Not Available Not Available methylpre dnisolone 4 mg tablets in a dose pack 03/18 completed Not Available Not Available Not Available oxybutyni n chloride 5 mg tablet 1 tab qd 12/27 completed Not Available Not Available Not Available ondansetr on 4 mg disintegr ating tablet PRN active Not Available Not Available Not Available fluticaso ne propionat e 50 mcg/actua tion nasal spray,dilcia pension SHAKE LIQUID AND USE 1 SPRAY IN EACH NOSTRIL DAILY active Not Available Not Available No t Available sertralin e 50 mg tablet TAKE 1 AND 1/2 TABLETS BY MOUTH DAILY active Not Available Not Available No t Available brimonidi ne 0.15 % eye drops INSTILL 1 DROP BOTH EYES THREE TIMES DAILY active Not Available Not Available No t Available loratadin e 10 mg tablet Once daily 2016 active Not Available Not Available Not Avai lable nortripty line 50 mg capsule 2 tab qd 05/31 completed Not Available Not Available Not Available Microlet Lancet TEST BLOOD SUGAR FOUR TIMES DAILY active Not Available Not Available No t Available amoxicill in 875 mg-potass ium clavulana te 125 mg tablet 03/15 completed Not Available Not Available Not Available insulin syringe U-100 with needle 0.3 mL 29 gauge USE ONCE DAILY DIRECTED active Not Available Not Available No t Available Triamtere ne W/Hctz 75 mg-50 mg tablet Once daily 12/27 completed Not taking/M S Not Available Not Available Not Available rosuvasta tin 10 mg tablet Take 1 tablet every day by oral route. 03/15 completed Not Available Not Available Not Available rosuvasta tin 20 mg tablet TAKE 1 TABLET BY MOUTH DAILY 09/22 completed Not Available Not Available Not Available rosuvasta tin 40 mg tablet TAKE 1 TABLET BY MOUTH DAILY AT BEDTIME active Not Available Not Available No t Available nitrofura ntoin monohydra te/macroc rystals 100 mg capsule TAKE 1 CAPSULE BY MOUTH EVERY 12 HOURS FOR 7 DAYS active Not Available Not Available No t Available duloxetin e 30 mg capsule,d elayed release TAKE 1 CAPSULE BY MOUTH EVERY DAY active Not Available Not Available No t Available BD Ultra-Fin e Mini Pen Needle 31 gauge x 3/16 USE WITH HUMALOG AND LANTUS 4 TIMES DAILY active Not Available Not Available No t Available eszopiclo ne 3 mg tablet 1 tab qd 05/31 completed Not Available Not Available Not Available eszopiclo ne 2 mg tablet TAKE 1 TABLET BY MOUTH EVERY NIGHT AT BEDTIME active Not Available Not Available No t Available eszopiclo ne 1 mg tablet TAKE 1 TABLET BY MOUTH EVERY NIGHT AT BEDTIME active Not Available Not Available No t Available Boostrix Tdap 2.5 Lf unit-8 mcg-5 Lf/0.5 mL intramusc ular syringe 12/06 completed Not Available Not Available Not Available Rozerem 8 mg tablet 12/28 completed Not Available Not Available Not Available Fish Oil 350mg qd 09/22 completed Not Available Not Available Not Available glyburide 6 mg twice a day 12/27 completed pt not taking 12/27/20 Not Available Not Available Not Available Calcium 600 1 tab bid 09/22 completed Not Available Not Available Not Available furosemid e 5 mg 1 each in thr AM 11/20 completed Not Available Not Available Not Available Stool Softener 1 tab in am 09/22 completed Not Available Not Available Not Available Glucotrol 11/06 completed Not Available Not Available Not Available OneTouch Ultra2 Meter kit 12/28 completed Not Available Not Available Not Available BD Ultra-Fin e Short Pen Needle 31 gauge x 03/12 completed Not Available Not Available Not Available Levemir U-100 Insulin 04/20 completed Not Available Not Available Not Available Januvia 50 mg tablet Take 1 tablet every day by oral route as directed . 12/28 completed Not Available Not Available Not Available Januvia 100 mg tablet not taking 12/28 completed Not Available Not Available Not Available Lantus Solostar U-100 Insulin 100 unit/mL (3 mL) subcutane ous pen INJECT 22 UNITS UNDER THE SKIN EVERY MORNING active Not Available Not Available No t Available Humalog KwikPen (U-100) Insulin 100 unit/mL subcutane ous active Not Available Not Available Not Available B12 1,000 mcg daily 09/22 completed Not Available Not Available Not Available Xarelto 10 mg tablet active Not Available Not Available Not Available Brilinta 90 mg tablet TAKE 1 TABLET BY MOUTH TWICE A DAY DIRECTED 09/24 completed Not Available Not Available Not Available OneTouch Verio test strips USE TO TEST UP TO FOUR TIMES DAILY active Not Available Not Available No t Available Suresh Chewable Low Dose Aspirin 81 mg tablet Chew 1 tablet every day by oral route. active Not Available Not Available No t Available Contour Next Meter active Not Available Not Available Not Available Levemir FlexTouch U-100 Insulin 100 unit/mL (3 mL) subcutane ous pen 04/20 completed Not Available Not Available Not Available Jardiance 10 mg tablet TAKE 1 TABLET BY MOUTH DAILY 03/18 completed Not Available Not Available Not Available Jardiance 25 mg tablet TAKE 1 TABLET BY MOUTH DAILY active Not Available Not Available No t Available Belsomra 10 mg tablet TAKE 1 TABLET BY MOUTH EVERY NIGHT AT BEDTIME 03/02 completed Not Available Not Available Not Available Fluzone High-Dose 3729-8509 (PF) 180 mcg/0.5 mL intramusc ular syringe 04/08 completed Not Available Not Available Not Available OneTouch Ultra Blue Test Strip USE DIRECTED 09/22 completed Not Available Not Available Not Available Fluzone High-Dose (PF) 180 mcg/0.5 mL intramusc ular syringe 12/06 completed Not Available Not Available Not Available OneTouch Delica Plus Lancet 33 gauge TEST ONCE DAILY active Not Available Not Available No t Available Fluzone High-Dose Quad (PF) 240 mcg/0.7 mL IM syringe 12/06 completed Not Available Not Available Not Available Vitals Date Recorded Body height Body mass index (BMI) Body weight Heart rate Oxygen saturation Oxygen saturation in Arterial blood by Pulse oximetry Systolic blood pressure Diastolic blood pressure Provider Name and Address Organization Details Last Updated DateTime 5 154.94 cm 30.8 kg/m2 42712.2 7 g 70 /min 94 % 94 % 114 mm[Hg] 60 mm[Hg] Karen [facility] 5 17:02:46 Date Recorded Body height Body mass index (BMI) Body weight Heart rate Oxygen saturation Oxygen saturation in Arterial blood by Pulse oximetry Systolic blood pressure Diastolic blood pressure Provider Name and Address Organization Details Last Updated DateTime 5 154.94 cm 29.9 kg/m2 08481.5 9 g 60 /min 98 % 98 % 108 mm[Hg] 60 mm[Hg] Yanelis [facility] 5 11:51:06 Date Recorded Body height Body mass index (BMI) Body weight Heart rate Oxygen saturation Oxygen saturation in Arterial blood by Pulse oximetry Systolic blood pressure Diastolic blood pressure Provider Name and Address Organization Details Last Updated DateTime 4 154.94 cm 31.9 kg/m2 10953.1 1 g 60 /min 99 % 99 % 148 mm[Hg] 78 mm[Hg] Yanelis [facility] 4 09:44:18 Date Recorded Body height Body mass index (BMI) Body weight Heart rate Respiratory rate Oxygen saturation Oxygen saturation in Arterial blood by Pulse oximetry Systolic blood pressure Diastolic blood pressure Provider Name and Address Organization Details Last Updated DateTime 3 154.94 cm 30.4 kg/m2 65310.3 7 g 80 /min 16 /min 97 % 97 % 124 mm[Hg] 62 mm[Hg] Karen Miller [facility] 3 10:26:55 Date Recorded Body height Body mass index (BMI) Body weight Heart rate Respiratory rate Oxygen saturation Oxygen saturation in Arterial blood by Pulse oximetry Systolic blood pressure Diastolic blood pressure Provider Name and Address Organization Details Last Updated DateTime 4 154.94 cm 30.2 kg/m2 96775.7 8 g 67 /min 18 /min 100 % 100 % 112 mm[Hg] 64 mm[Hg] Chito Goodman [facility] 4 09:06:54 Social History Question Answer Notes LastModified by [employer] Details LastModified Time Tobacco Smoking Status Former Smoker Not Available [facility] 08/30/2020 03:30:19 What Was The Date Of Your Most Recent Tobacco Screening? 10/10/2018 [id number] Information not available 08/30/2020 Sex: Unknown Functional Status Question Answer Note LastModified by [employer] Details LastModified Time Do you or have you ever used smokeless tobacco? Former smokeless tobacco user [id number] Information not available 08/30/2020 Do you or have you ever used e-cigarettes or vape? Never used electronic cigarettes [id number] Information not available 08/30/2020 Mental Status None recorded. Family History Relationship Description Onset Age of this Age Resolved Age Notes LastModified by Organization Details LastModified Time Father Diabetes mellitus [email or web address] Not available 2015 04:20:35 Father Hypertensive disorder hmesto Not available 2015 04:20:55 Mother Hypertensive disorder hmesto Not available 2015 04:21:05 Medical History Condition Response Diabetes Y Coronary Artery Disease Y Sleep Apnea Y Hyperlipidemia Y Hypertension Y Depression Y Gynecological HistoryNo gynecological history recorded. Obstetrics History GPAL:G 0 P 0 0 0 0 Past Encounters Encounter ID Performer Location Encounter Start Date Encounter Closed Date Diagnosis/Indication Diagnosis SNOMED-CT Code Diagnosis ICD10 Code Diagnosis Note [id number] Meet Garrett MD [facility] [address] [place] [address] 03/23/2016 09:15:47 03/23/2016 10:34:24 Electrocardiogram abnormal 421515428 R94.31 Pt desires to begin regular walking program but has not exercised in years. Pt has cardiac risk factors of DM, HTN, hyperlipid emia, distant tobacco history, abnormal EKG, and has episodic vomiting. Obtain Exercise Treadmill Nuclear study to evaluate for exercise capacity and ischemia. Benign hypertension 1072 5009 I10 Patient's blood pressure is well-contr olled on present medical therapy. Patient is tolerating , without difficulty , the current medication s. I have not made changes to the current regimen. Patient is advised to maintain a blood pressure diary. Patient was advised to eat a low-sodium diet (2 grams sodium or less daily). Hyperlipidemia 34180023 E78.5 Pt reports better control of her DM with better HgbA1C over the last year with associated 20 lb. weight loss. Will need to obtain recent fasting lipid profile from her PCP. Hyperlipid emia previously well-contr olled with diet. Obstructiv e sleep apnea syndrome 44907622 G47.33 Pt unable to tolerate CPAP, but still has the device. [id number] Meet Garrett MD [facility] [place] [address] 04/20/2016 09:30:32 04/20/2016 10:47:04 Benign hypertension 81437819 I10 Hyperlipidemia 27770295 E78.5 with fair control Electrocar diogram abnormal 855704486 R94.31 Negative stress test Obstructiv e sleep apnea syndrome 38220500 G47.33 Pt unable to tolerate CPAP, but still has the device. Palpitations 93602444 R0 0.2 Holter [id number] Meet Garrett MD [facility] [place] [address] 11/06/2016 09:04:12 11/06/2016 11:13:27 Benign hypertension 43097769 I10 Tachycardia 7898930 R00. 0 Hyperlipidemia 06534187 E78.5 with fair control Electrocar diogram abnormal 075283702 R94.31 Negative stress test Obstructiv e sleep apnea syndrome 11481370 G47.33 Pt unable to tolerate CPAP, but still has the device. Palpitations 97624142 R0 0.2 Dizziness 705146915 R42 With low BPWill DC HCTZ [id number] Meet Garrett MD [facility] [place] [address] 11/20/2016 17:04:04 11/21/2016 08:46:08 Benign hypertension 83735461 I10 Tachycardia 2851679 R00. 0 Hyperlipidemia 81560480 E78.5 with fair control Electrocar diogram abnormal 154379907 R94.31 Negative stress test Obstructiv e sleep apnea syndrome 94607217 G47.33 Pt unable to tolerate CPAP, but still has the device. Palpitations 23548277 R0 0.2 Dizziness 837275188 R42 Will DC HCTZ [id number] Meet Garrett MD [facility] [address] [place] [address] 02/18/2017 15:05:27 02/18/2017 17:08:24 Benign hypertension 00717446 I10 Tachycardia 0384461 R00. 0 Hyperlipidemia 74107426 E78.5 with fair control Electrocar diogram abnormal 054029700 R94.31 Negative stress test Obstructiv e sleep apnea syndrome 61393897 G47.33 Pt unable to tolerate CPAP, but still has the device. Palpitations 27899978 R0 0.2 Dizziness 630478319 R42 Will DC HCTZ [place] 045782037 R29.6 could be due to leg weakness with PVD. Will get arterial doppler, to evaluate severity of peripheral vascular disease [id number] Meet Garrett MD [facility] [place] [address] 05/20/2017 13:45:22 05/20/2017 16:38:42 Benign hypertension 49811321 I10 Patient's blood pressure is well-contr olled on present medical therapy. Patient is tolerating , without difficulty , the current medication s. I have not made changes to the current regimen. Patient was advised to eat a low-sodium diet (2 grams sodium or less daily). Hyperlipidemia 67671095 E78.5 LDL 62 but with mildly elevated TG. Continue fish oil 2 gm bid. Improve control of DM. Electrocar diogram abnormal 675951356 R94.31 Negative stress test. Obstructiv e sleep apnea syndrome 88990087 G47.33 Pt unable to tolerate CPAP, but still has the device. Pt to call to improve mask fitment. Palpitations 19099135 R0 0.2 Improved. Continue Toprol. Dizziness 237295800 R42 Stable. HCTZ D/C previously . Falls 646352580 R29.6 Could be due to leg weakness with PVD. Pt is also on multiple meds which may impact this. Had ULISSES 04/2017: normal. Obtain Carotid U/S. Diabetes mellitus 415537 E11.59 Discussed importance of tight glycemic control to minimize cardiovasc ular disease progressio n. [id number] Meet Garrett MD [facility] [address] [place] [address] 07/02/2017 11:36:38 07/03/2017 10:29:41 Benign hypertension 61342842 I10 Hyperlipidemia 06942322 E78.5 09/11/16 LDL 62 but with mildly elevated TG. Continue fish oil 2 gm bid. Improve control of DM. Electrocar diogram abnormal 562192438 R94.31 Negative stress test. Obstructiv e sleep apnea syndrome 24053415 G47.33 Pt unable to tolerate CPAP, but still has the device. Pt to call to improve mask fitment. Palpitations 40004159 R0 0.2 Improved. Continue Toprol. Dizziness 919235780 R42 Stable. HCTZ D/C previously .Could be due to orthostati c HYPOTENSIO N Falls [id number] R29.6 Could be due to leg weakness with PVD. Pt is also on multiple meds which may impact this. Had ULISSES 04/2017: normal. Diabetes mellitus 094893 E11.59 Discussed importance of tight glycemic control to minimize cardiovasc ular disease progressio n. 62613 Meet Garrett MD [facility] [place] [address] 10/01/2017 11:17:58 10/01/2017 16:22:00 Benign hypertension 92485532 I10 Hyperlipidemia 23254635 E78.5 09/11/16 LDL 62 but with mildly elevated TG. Continue fish oil 2 gm bid. Improve control of DM. Electrocar diogram abnormal 347185507 R94.31 Negative stress test. Obstructiv e sleep apnea syndrome 90980778 G47.33 Pt unable to tolerate CPAP, but still has the device. Pt to call to improve mask fitment. Palpitations 50171948 R0 0.2 Improved. Continue Toprol. Dizziness 088842886 R42 Stable. HCTZ D/C previously .Could be due to orthostati c HYPOTENSIO N [place] 283513910 R29.6 Could be due to leg weakness with PVD. Pt is also on multiple meds which may impact this. Had ULISSES 04/2017: normal. Diabetes mellitus 165694 09 E11.59 Discussed importance of tight glycemic control to minimize cardiovasc ular [place] progressio [place]. 21428 Meet Garrett MD [facility] [address] [place] [address] 04/08/2018 09:58:49 04/08/2018 16:32:55 Benign hypertension 49488060 I10 Well controlled today. Hyperlipidemia 56808658 E78.5 Needs to keep LDL less than 70, and HDL more than 40 Will get lipid profile results from PCP- 03/12 LDL 62, but with mildly elevated TG. Continue fish oil 2 gm bid. Improve control of DM. Electrocar diogram abnormal 270985455 R94.31 Negative stress test 03/2017. Obstructiv e sleep apnea syndrome 05420910 G47.33 Pt unable to tolerate CPAP, but still has the device. Pt to call to improve mask fitment. will need to re start with new sleep study Palpitations 05839073 R0 0.2 Improved. Continue Toprol 12.5 mg. Dizziness 972807613 R42 Stable. HCTZ D/C previously . Could be due to orthostati c HYPOTENSIO N [place] 788722180 R29.6 Could be due to leg weakness with PVD. Pt is also on multiple meds which may impact this. Had ULISSES 04/2017: normal. Diabetes mellitus 985246 09 E11.59 Discussed importance of tight glycemic control to minimize cardiovasc ular [place] progressio n. 67543 Meet Garrett MD [facility] [address] [place] [address] 10/10/2018 10:29:34 10/10/2018 11:03:05 Benign hypertension 39369289 I10 Well controlled today. Hyperlipidemia 64664772 E78.5 Needs to keep LDL less than 70, and HDL more than 40 Will get lipid profile results from PCP 6 LDL 62, but with mildly elevated TG. Continue fish oil 2 gm bid. Improve control of DM. Electrocar diogram abnormal 553859181 R94.31 Negative stress test 03/2017. Obstructiv e sleep apnea syndrome 24827892 G47.33 Home sleep study and FU Diabetes mellitus 477755 E11.59 Discussed importance of tight glycemic control to minimize cardiovasc ular disease progressio n. Palpitations 81221028 R0 0.2 Improved. Continue Toprol 12.5 mg. Dizziness 179579193 R42 Stable. HCTZ D/C previously . Could be due to orthostati c HYPOTENSIO N Had carotid US done in 05/01/18 showed Antegrade flow noted in both vertebral arteries. Very mild bilateral internal carotid artery stenosis with less than 15% diameter stenosis. Falls 139784510 R29.6 Could be due to leg weakness with PVD. Pt is also on multiple meds which may impact this. Had ULISSES 04/2017: normal. Dyspnea on exertion 6084 5006 R06.09 Treadmill Myoview Stress test, has high [place] Common Risk score. Has Known CAD, or CAD risk equivalent . To look for any ischemia. [id number] Meet Garrett MD [facility] [address] [place] [address] 11/11/2018 14:36:31 11/11/2018 15:23:14 Dyspnea on exertion 61749439 R06.09 Had Treadmill Stress Test on 10/23/18: Positive stress test. Normal LV systolic function. Reversible defect consistent with ischemia in inferior area. Exercise tolerance is below average. LVEF 51%. The patient will be scheduled for left heart catheteriz ation, with coronary angiogram, and possible PTCA/Stent . The procedure was discussed with the patient, and risks, benefits, and alternativ e options were explained. The patient was given informatio n about heart catheteriz ation and interventi onal procedures . The patient agrees to proceed. Benign hypertension 1072 5009 I10 Well controlled today. Hyperlipidemia 09690422 E78.5 Needs to keep LDL less than 70, and HDL more than 40 Will get lipid profile results from PCP 6 LDL 62, but with mildly elevated TG. Continue fish oil 2 gm bid. Improve control of DM. Electrocar diogram abnormal 439287591 R94.31 Negative stress test 03/2017. Obstructiv e sleep apnea syndrome 13177257 G47.33 Home sleep study and FU Diabetes mellitus 947239 09 E11.59 Discussed importance of tight glycemic control to minimize cardiovasc ular disease progressio n. Palpitations 03475701 R0 0.2 Improved. Continue Toprol 12.5 mg. Dizziness 241079773 R42 Stable. HCTZ D/C previously . Could be due to orthostati c HYPOTENSIO N Had carotid US done in 05/01/18 showed Antegrade flow noted in both vertebral arteries. Very mild bilateral internal carotid artery stenosis with less than 15% diameter stenosis. Falls 905894757 R29.6 Could be due to leg weakness with PVD. Pt is also on multiple meds which may impact this. Had ULISSES 04/2017: normal. [id number] Meet Garrett MD [facility] [address] [place] [address] 12/30/2018 09:08:29 12/30/2018 10:04:10 Dyspnea on exertion 97031635 R06.09 s/p PCI to LAD [facility] Benign hypertension 1072 5009 I10 Well controlled today. Hyperlipidemia 20032884 E78.5 Needs to keep LDL less than 70, and HDL more than 40 09/26/18 LDL 97,on Simvastati n 10mg. ODContinue fish oil 2 gm bid. Improve control of DM. Electrocar diogram abnormal 473238482 R94.31 Obstructiv e sleep apnea syndrome 47833964 G47.33 Home sleep study and FU, has had sleep study in the past which showed sleep apnea, wore mask for a while, however, she could not tolerate the new mask Diabetes mellitus 808336 09 E11.59 Discussed importance of tight glycemic control to minimize cardiovasc ular disease progressio n., PCP manages her DM Palpitations 89747994 R0 0.2 Improved. Continue Toprol 12.5 mg., does complaIn of chest pounding when lying down Dizziness 513206302 R42 Denies any dizziness at this time Had carotid US done in 05/01/18 showed Antegrade flow noted in both vertebral arteries. Very mild bilateral internal carotid artery stenosis with less than 15% diameter stenosis. Falls 516298760 R29.6 Could be due to leg weakness with PVD. Pt is also on multiple meds which may impact this. Had ULISSES 04/2017: normal. Painless hematuria 53976 8001 R31.9 recently started on Brilinta last week after PTI Coronary arteriosclerosis 25251904 I25.10 had stent one week ago, on Brilinta and ASA 81mg., denies any chest pain 05653 Meet Garrett MD [facility] [address] [place] [address] 03/31/2019 10:58:35 05/11/2019 14:56:58 Dyspnea on exertion 48928824 R06.09 Stable.s/p PCI to LAD now.Will get echo to look for any structural heart disease Benign hypertension 1072 5009 I10 Well controlled today. Hyperlipidemia 52997680 E78.5 Needs to keep LDL less than 70, and HDL more than 40 09/26/18 LDL 64 Needs f/u FLP. Will get from PCP. Continue statin therapy. Electrocar diogram abnormal 750916070 R94.31 s/p LAD stent. Obstructiv e sleep apnea syndrome 91436237 G47.33 Home sleep study and FU, has had sleep study in the past which showed sleep apnea, wore mask for a while, however, she could not tolerate the new mask Diabetes mellitus 603210 09 E11.59 Treatment and evaluation by primary care doctor. Discussed importance of adequate glycemic control to minimize cardiovasc ular disease progressio n. A1C goal of < 7% for type 2 DM Palpitations 51499968 R0 0.2 Improved. Continue Toprol 12.5 mg., does complaIn of chest pounding when lying down Dizziness 803416561 R42 Denies any dizziness at this time Had carotid US done in 05/01/18 showed Antegrade flow noted in both vertebral arteries. Very mild bilateral internal carotid artery stenosis with less than 15% diameter stenosis. Falls 345987335 R29.6 So far no recurrence s. Had ULISSES 04/2017: normal. Painless hematuria 8001 R31.9 recently started on Brilinta after PCI. Seeing urologist now. Coronary arteriosclerosis 69924477 I25.10 s/p LAD stent. Remains chest pain free. Continue Brilinta and ASA 81mg. 12282 Meet Garrett MD [facility] [address] [place] [address] 06/30/2019 11:23:17 07/13/2019 17:26:42 Coronary arteriosclerosis 09290076 I25.10 s/p LAD stent (11/2018). Remains chest pain free. Continue Brilinta and ASA 81mg. Essential hypertension 41065517 I10 Controlled . Hyperlipidemia 42257471 E78.5 Needs to keep LDL less than 70, and HDL more than 40 04/21/2019 LDL 80 Will increase Simvastati n to 20mg daily. Diabetes poncho garces without complication 017428469 E11.9 Treatment and evaluation by primary care doctor. Discussed importance of adequate glycemic control to minimize cardiovasc ular disease progressio n. A1C goal of < 7% for type 2 DM Obstructiv e sleep apnea syndrome 77209159 G47.33 Home sleep study and FU, has had sleep study in the past which showed sleep apnea, wore mask for a while, however, she could not tolerate the new mask 10217 Meet Garrett MD [facility] [place] [address] 12/29/2019 11:04:08 01/02/2020 20:49:01 Coronary arteriosclerosis 90230452 I25.10 s/p LAD stent (11/2018). Asymptomat ic. Continue Brilinta and ASA 81mg. Essential hypertension 89446176 I10 Controlled . Hyperlipidemia 11778974 E78.5 Needs to keep LDL less than 70, and HDL more than 40 04/21/2019 LDL 80 Simvastati n recently increased to 20mg daily. Will order fasting lipids. Diabetes poncho garces without complication 636759005 E11.9 Treatment and evaluation by primary care doctor. Discussed importance of adequate glycemic control to minimize cardiovasc ular disease progressio n. A1C goal of < 7% for type 2 DM Obstructiv e sleep apnea syndrome 84389603 G47.33 Home sleep study and FU, has had sleep study in the past which showed sleep apnea, wore mask for a while, however, she could not tolerate the new mask Peripheral vascular disease 732471179 I73.9 Weak peripheral pulses. Will order ULISSES to evaluate. Coronary arteriosclerosis in [place] artery 6944361271 107 I25.10 29768 Meet Garrett MD [facility] [place] [address] 05/31/2020 14:15:36 05/31/2020 14:46:13 Coronary arteriosclerosis 94201912 I25.10 s/p LAD stent (11/2018) Stable, asymptomat ic. Continue Brilinta and ASA 81mg Essential hypertension 49830952 I10 Well controlled Hyperlipidemia 01195649 E78.5 Needs to keep LDL less than 70, and HDL more than 40 12/31/2019 LDL 78 Will increase simvastati n from 20mg to 40mg 05/31/2020 Will get fasting lipids for follow-up Diabetes m dez without complication 132227587 E11.9 Treatment and evaluation by primary care doctor Discussed importance of adequate glycemic control to minimize cardiovasc ular disease progressio n, A1C goal of < 7% for type 2 DM. Obstructiv e sleep apnea syndrome 13540079 G47.33 Unable to tolearte CPAP Peripheral vascular disease 078900934 I73.9 Will get arterial doppler to evaluate severity of peripheral vascular disease 52296 Meet Garrett MD [facility] [address] [place] [address] 12/27/2020 09:59:49 12/27/2020 10:34:51 Coronary arteriosclerosis 24723328 I25.10 s/p LAD stent (11/2018) Stable, remains asymptomat ic. Continue Brilinta and ASA 81mg Treadmill Myoview Stress test, has high [place] Common Risk score. Has Known CAD, or CAD risk equivalent . To look for any ischemia. Essential hypertension 80257797 I10 Well controlled Hyperlipidemia 10435212 E78.5 Needs to keep LDL less than 70, and HDL more than 40 12/31/2019 LDL 78 Increased simvastati n to 40mg at last visit Will get fasting lipids for follow-up Diabetes poncho garces without complication 857473857 E11.9 Treatment and evaluation by primary care doctor Discussed importance of adequate glycemic control to minimize cardiovasc ular disease progressio n, A1C goal of < 7% for type 2 DM. Obstructiv e sleep apnea syndrome 30177833 G47.33 Unable to tolerate CPAPEncour aged to use oral device Peripheral vascular disease 266269782 I73.9 Now asymptomat icABI 08/09/2020 : Abnormal ankle-brac hial index. Calcified non-compre ssible lower extremity arteries. 16013 Meet Garrett MD [facility] [address] [place] [address] 06/27/2021 09:42:45 06/27/2021 10:35:10 Coronary arteriosclerosis 14846947 I25.10 s/p LAD stent (11/2018) Stable, remains asymptomat ic. Continue Brilinta and ASA 81mg Essential hypertension 44065413 I10 Well controlled Hyperlipidemia 73490047 E78.5 Needs to keep LDL less than 70, and HDL more than 40 12/31/2019 LDL 78 Increased simvastati n to 40mg at last visit but had side effects from that, will lower back Will get fasting lipids for follow-up Diabetes poncho garces without complication 441588246 E11.9 Treatment and evaluation by primary care doctor Discussed importance of adequate glycemic control to minimize cardiovasc ular disease progressio n, A1C goal of < 7% for type 2 DM. Obstructiv e sleep apnea syndrome 23743123 G47.33 Unable to tolerate CPAPEncour aged to use oral device Peripheral vascular disease 056872330 I73.9 Now asymptomat icABI 08/09/2020 : Abnormal ankle-brac hial index. Calcified non-compre ssible lower extremity arteries. Palpitations 39132070 R0 0.2 Improved. Continue Toprol 12.5 mg., does complain of chest pounding when lying downEvent monitor [id number] Meet Garrett MD [facility] [address] [place] [address] 12/22/2021 09:56:52 12/22/2021 12:18:29 Coronary arteriosclerosis 30185731 I25.10 s/p LAD stent (11/2018) Has submaximal stress test -2020 and is still having chest pressure and is not very active. Continue Brilinta and ASA 81mg Consider Lexiscan with h/o DM, HTN, CKD, LAD stent in 2019. Has high [place] Common Risk score. Has Known CAD, To look for any ischemia. Essential hypertension 20949232 I10 Well controlled Hyperlipidemia 60813916 E78.5 Needs to keep LDL less than 70, and HDL more than 40 12/31/2019 LDL 78 LDL 85 Increased simvastati n to 40mg at last visit but had side effects from that, continues on this change to crestor 10 mg with CAD, DM, HTN and increased cardiac risk. D/C SImvastati n Will get fasting lipids for follow-up in 3-6 months Diabetes poncho garces without complication 986875001 E11.9 Treatment and evaluation by primary care doctor Hga1c had been 7.4 and had Insulin increased. Discussed importance of adequate glycemic control to minimize cardiovasc ular disease progressio n, A1C goal of < 7% for type 2 DM. Obstructiv e sleep apnea syndrome 28740481 G47.33 Unable to tolerate CPAPEncour aged to use oral device Peripheral vascular disease 678190647 I73.9 Now asymptomat icABI 08/09/2020 : Abnormal ankle-brac hial index. Calcified non-compre ssible lower extremity arteries. Palpitations 35846364 R0 0.2 Improved. Continue Toprol 12.5 mg., does complain of chest pounding when lying downEvent monitor negative NSR no afib or other arrythmia 66458 Meet Garrett MD [facility] [place] [address] 03/23/2022 10:14:48 03/23/2022 11:30:13 Coronary arteriosclerosis 41702823 I25.10 s/p LAD stent (11/2018) Continue Brilinta and ASA 81mg Essential hypertension 84551471 I10 Well controlled Hyperlipidemia 22455585 E78.5 Needs to keep LDL less than 70, and HDL more than 40 12/31/2019 LDL 78 -2020 LDL 85 Increased simvastati n to 40mg at last visit but had side effects from that, continues on this On crestor 10 mg Diabetes poncho garces without complication 306237693 E11.9 Treatment and evaluation by primary care doctor Hga1c had been 7.4 and had Insulin increased. Discussed importance of adequate glycemic control to minimize cardiovasc ular disease progressio n, A1C goal of < 7% for type 2 DM. Obstructiv e sleep apnea syndrome 20001685 G47.33 Unable to tolerate CPAPEncour aged to use oral device Peripheral vascular disease 737836588 I73.9 Now asymptomat icABI 08/09/2020 : Abnormal ankle-brac hial index. Calcified non-compre ssible lower extremity arteries. Palpitations 73551849 R0 0.2 Improved. Continue Toprol 12.5 mg., does complain of chest pounding when lying downEvent monitor negative NSR no afib or other arrythmia Chest pain 48658701 R07. 9 Lexiscan Myoview stress test, pt can not walk. Has known coronary artery disease, with atypical symptoms now, the patient is not able to walk on treadmill 60977 Meet Garrett MD [facility] [address] [place] [address] 09/14/2022 09:19:23 09/14/2022 09:43:42 Coronary arteriosclerosis 60880644 I25.10 s/p LAD stent (11/2018) Continue Brilinta and ASA 81mg Essential hypertension 75740497 I10 Well controlled Hyperlipidemia 30163506 E78.5 Needs to keep LDL less than 70, and HDL more than 40 12/31/2019 LDL 78 6-2020 LDL 85 Increased simvastati n to 40mg at last visit but had side effects from that, continues on this On crestor 10 mg, will increase to 20 mg Diabetes poncho garces without complication 273845078 E11.9 Treatment and evaluation by primary care doctor Hga1c had been 7.4 and had Insulin increased. Discussed importance of adequate glycemic control to minimize cardiovasc ular disease progressio n, A1C goal of < 7% for type 2 DM. Obstructiv e sleep apnea syndrome 47819326 G47.33 Unable to tolerate CPAPEncour aged to use oral device Peripheral vascular disease 185324588 I73.9 Now asymptomat icABI 08/09/2020 : Abnormal ankle-brac hial index. Calcified non-compre ssible lower extremity arteries. Palpitations 56516098 R0 0.2 Improved. Continue Toprol 12.5 mg., does complain of chest pounding when lying downEvent monitor negative NSR no afib or other arrhythmia Chest pain 06345174 R07. 9 Lexiscan Myoview stress test was negativeOK to DC Brilinta 07028 Meet Garrett MD [facility] [address] [place] [address] 03/15/2023 10:29:01 03/15/2023 11:16:18 Coronary arteriosclerosis 10331967 I25.10 s/p LAD stent (11/2018) Continue Brilinta and ASA 81mg Essential hypertension 03636369 I10 Well controlled Hyperlipidemia 29590577 E78.5 Needs to keep LDL less than 70, and HDL more than 40 12/31/2019 LDL 78 -2020 LDL 85 Increased simvastati n to 40mg at last visit but had side effects from that, continues on this On crestor 10 mg, will increase to 20 mg Diabetes m dez without complication 802106770 E11.9 Treatment and evaluation by primary care doctor Hga1c had been 7.4 and had Insulin increased. Discussed importance of adequate glycemic control to minimize cardiovasc ular disease progressio n, A1C goal of < 7% for type 2 DM. Obstructiv e sleep apnea syndrome 03025530 G47.33 Unable to tolerate CPAPEncour aged to use oral device Peripheral vascular disease 766567461 I73.9 Now asymptomat icA 08/09/2020 : Abnormal ankle-brac hial index. Calcified non-compre ssible lower extremity arteries. Palpitations 34821295 R0 0.2 Improved. Continue Toprol 12.5 mg., does complain of chest pounding when lying downEvent monitor negative NSR no afib or other arrhythmia Chest pain 58493176 R07. 9 Lexiscan Myoview stress test was negativeOK to DC Brilinta 43551 Meet Garrett MD [facility] [place] [address] 09/24/2023 10:18:59 09/24/2023 11:05:49 Coronary arteriosclerosis 16210274 I25.10 last stress test was negative /p LAD stent (11/2018) Continue ASA 81mg Essential hypertension 40464643 I10 Well controlled Hyperlipidemia 40271837 E78.5 LDL is 46 done 06/2022 and she is taking crestor 40 mg daily.F/u FLP results from PCP. Continue statin. Diabetes m dez without complication 610555224 E11.9 Treatment and evaluation by primary care doctor Hga1c had been 7.4 and had Insulin increased. Discussed importance of adequate glycemic control to minimize cardiovasc ular disease progressio n, A1C goal of < 7% for type 2 DM. Obstructiv e sleep apnea syndrome 38771103 G47.33 Unable to tolerate CPAPEncour aged to use oral device Peripheral vascular disease 627680036 I73.9 Now asymptomat icABI 08/09/2020 : Abnormal ankle-brac hial index. Calcified non-compre ssible lower extremity arteries. Dyslipidemia 213535337 E 78.5 LDL is 46 done 06/2022 and she is taking crestor 40 mg daily. Dyspnea on exertion 6084 5006 R06.09 Stable.s/p PCI to LAD now.Will get echo to look for any structural heart disease Edema of l ower extremity 354970731 R60.0 stablecont inue with torsemide 5 mg daily Carotid bruit 455539431 R09.89 repeat [place] [id number] Meet Garrett MD [facility] [address] [place] [address] 03/18/2024 09:29:17 03/18/2024 10:24:49 Coronary arteriosclerosis 50772674 I25.10 last stress test was negative /p LAD stent (11/2018) Continue ASA 81mg Essential hypertension 62922158 I10 Blood pressure is elevated today, but this is only one reading, will keep close follow up, and consider medication change if blood pressure is still elevated next visit. Hyperlipidemia 00303909 E78.5 Last LDL was 43 done on 10/29/23.P t takes rosuvastat in 40 mg. Diabetes poncho garces without complication 590994052 E11.9 Treatment and evaluation by primary care doctor Hga1c had been 7.4 and had Insulin increased. Discussed importance of adequate glycemic control to minimize cardiovasc ular disease progressio n, A1C goal of < 7% for type 2 DM. Obstructiv e sleep apnea syndrome 88805401 G47.33 Unable to tolerate CPAPEncour aged to use oral device Peripheral vascular disease 385273920 I73.9 Now asymptomat icABI 08/09/2020 : Abnormal ankle-brac hial index. Calcified non-compre ssible lower extremity arteries. Dyslipidemia 499924736 E 78.5 Last LDL was 43 done on 10/29/23.P t takes rosuvastat in 40 mg. Edema of l ower extremity 440405986 R60.0 stablecont inue with torsemide 5 mg daily Carotid bruit 948524983 R09.89 mild disease per her last US Dyspnea on exertion 6084 5006 R06.09 Stable.s/p PCI to LAD now. US, echocardio gramECHO 10/02/23: LV chamber size is normal, LV wall thickness is mild to moderately increased. LVEF 55-60%, LV relaxation is impaired,t he aortic valve is mildly calcified, there is mild aortic root calcificat ion, there is mild to moderate aortic valve stenosis, there is mild mitral annular calcificat ion, there is mild mitral regurgitat ion, there is minimal pulmonic regurgitat ion,sinus bradycardi a. Aortic valve stenosis 60 113713 I35.0 moderate will repeat her Echo in 6 months US, echocardio gramECHO 10/02/23: LV chamber size is normal, LV wall thickness is mild to moderately increased. LVEF 55-60%, LV relaxation is impaired,t he aortic valve is mildly calcified, there is mild aortic root calcificat ion, there is mild to moderate aortic valve stenosis, there is mild mitral annular calcificat ion, there is mild mitral regurgitat ion, there is minimal pulmonic regurgitat ion,sinus bradycardi a. [id number] Meet Garrett MD [facility] [address] [place] [address] 10/27/2024 08:48:16 10/27/2024 09:26:52 Coronary arteriosclerosis 14962321 I25.10 last stress test was negative /p LAD stent (11/2018) Continue ASA 81mg Essential hypertension 99172135 I10 Now well controlled Hyperlipidemia 87383352 E78.5 Last LDL was 43 done on 10/29/23.P t takes rosuvastat in 40 mg. Diabetes m ellitus without complication 944171141 E11.9 Treatment and evaluation by primary care doctor Hga1c had been 7.4 and had Insulin increased. Discussed importance of adequate glycemic control to minimize cardiovasc ular disease progressio n, A1C goal of < 7% for type 2 DM. Obstructiv e sleep apnea syndrome 71860874 G47.33 Unable to tolerate CPAPEncour aged to use oral device Peripheral vascular disease 907714941 I73.9 Now asymptomat icABI 08/09/2020 : Abnormal ankle-brac hial index. Calcified non-compre ssible lower extremity arteries. Dyslipidemia 413521213 E 78.5 Last LDL was 43 done on 01/02/24.P t takes rosuvastat in 40 mg. Edema of l ower extremity 552995273 R60.0 stablecont inue with torsemide 5 mg daily Carotid bruit 994294528 R09.89 mild disease per her last US Aortic valve stenosis 60 007060 I35.0 moderate will repeat her Echo in 6 months US, echocardio AltafO 10/02/23: LV chamber size is normal, LV wall thickness is mild to moderately increased. LVEF 55-60%, LV relaxation is impaired,t he aortic valve is mildly calcified, there is mild aortic root calcificat ion, there is mild to moderate aortic valve stenosis, there is mild mitral annular calcificat ion, there is mild mitral regurgitat ion, there is minimal pulmonic regurgitat ion,sinus bradycardi a. [id number] Meet Garrett MD [facility] [address] [place] [address] 01/07/2025 16:51:07 01/07/2025 17:26:27 Coronary arteriosclerosis [id number] I25.10 last stress test was negative /p LAD stent (11/2018) Continue ASA 81mg Essential hypertension [id number] I10 Now well controlled Hyperlipidemia 20014284 E78.5 Last LDL was 43 done on 10/29/23.P t takes rosuvastat in 40 mg. Diabetes m ellitus without complication [id number] E11.9 Treatment and evaluation by primary care doctor Hga1c had been 7.4 and had Insulin increased. Discussed importance of adequate glycemic control to minimize cardiovasc ular disease progressio n, A1C goal of < 7% for type 2 DM. Obstructiv e sleep apnea syndrome 26191530 G47.33 Unable to tolerate CPAPEncour aged to use oral device Peripheral vascular disease [id number] I73.9 Now asymptomat icABI 08/09/2020 : Abnormal ankle-brac hial index. Calcified non-compre ssible lower extremity arteries. Dyslipidemia 739364713 E 78.5 Last LDL was 43 done on 10/29/23.P t takes rosuvastat in 40 mg. Edema of l ower extremity 274908815 R60.0 stablecont inue with torsemide 5 mg daily Carotid bruit [id number] R09.89 mild disease per her last US Aortic valve stenosis 60 799585 I35.0 moderate , now maybe severewill get BRANDON [id number] Meet Garrett MD [facility] [address] [place] [address] 03/02/2025 11:12:17 03/02/2025 12:04:44 Coronary arteriosclerosis [id number] I25.10 last stress test was negative /p LAD stent (11/2018) Continue ASA 81mgThe patient will be scheduled for left heart catheteriz ation, with coronary angiogram, and possible PTCA/Stent . The procedure was discussed with the patient, and risks, benefits, and alternativ e options were explained. The patient was given informatio n about heart catheteriz ation and interventi onal procedures . The patient agrees to proceed. Essential hypertension 90478381 I10 Now well controlled Hyperlipidemia 06367294 E78.5 Last LDL was 43 done on 10/29/23.P t takes rosuvastat in 40 mg. Diabetes m ellitus without complication 742308007 E11.9 Treatment and evaluation by primary care doctor Hga1c had been 7.4 and had Insulin increased. Discussed importance of adequate glycemic control to minimize cardiovasc ular disease progressio n, A1C goal of < 7% for type 2 DM. Obstructiv e sleep apnea syndrome 07535487 G47.33 Unable to tolerate CPAPEncour aged to use oral device Peripheral vascular disease [id number] I73.9 Now asymptomat icABI 08/09/2020 : Abnormal ankle-brac hial index. Calcified non-compre ssible lower extremity arteries. Dyslipidemia 291957119 E 78.5 Last LDL was 43 done on 10/29/23.P t takes rosuvastat in 40 mg. Edema of l ower extremity 044230837 R60.0 stablecont inue with torsemide 5 mg daily Carotid bruit 545537621 R09.89 mild disease per her last Aortic valve stenosis 60 523183 I35.0 severeTEE was doneThe patient will be scheduled for left heart catheteriz ation, with coronary angiogram, and possible PTCA/Stent . The procedure was discussed with the patient, and risks, benefits, and alternativ e options were explained. The patient was given informatio n about heart catheteriz ation and interventi onal procedures . The patient agrees to proceed.po ssible [facility] Concerns Section Related Observation LastModified by Organization Detai ls LastModified Time None Recorded Concern Status LastModified by Organization Details LastModified Time None Recorded Advance Directives Directive None Recorded Payers Insurance Date Sequence Insurance Name Policy Number Policy Ahuja Covered Member ID Ahuja Member ID Guarantor Name 10/27/2024 1 [facility] [employer] (MEDICARE REPLACEMENT HMO) [id number] Rosalina A Cook [id number] Rosalina A Cook 10/27/2024 1 [facility] (MEDICARE REPLACEMENT/AD VANTAGE - PPO) [id number] Rosalina A Cook [id number] Rosalina A Cook 10/27/2024 1 [place] Rosalina A Cook [id number] Rosalina A Cook 10/27/2024 1 [facility] (MEDICARE REPLACEMENT/AD VANTAGE - HMO) [id number] Rosalina A Cook [id number] Rosalina A Cook 10/27/2024 1 [facility] (MEDICARE REPLACEMENT/AD VANTAGE - PPO) [id number] Rosalina A Cook [id number] Rosalina A Cook 02/26/2025 1 [facility] (MEDICARE REPLACEMENT/AD VANTAGE - HMO) [id number] Rosalina A Cook [id number] Rosalina A Cook 10/27/2024 2 [facility] (MEDICARE REPLACEMENT/AD VANTAGE - HMO) [id number] Rosalina A Cook [id number] Rosalina A Cook 10/27/2024 1 [facility] (MEDICARE REPLACEMENT HMO) [id number] Rosalina A Cook [id number] Rosalina A Cook Notes Date Note Type Note Provider Name and Address Organization Details Recorded Time 09/24/2023 text/html 09/24/23CC : Car diac follow up dyspnea on [id number] white women with a past medical history of CAD, s/p LAD stent (12/24/2018) diabetes mellitus, hypertension, dyslipidemia, HELLEN, depression, presents today for 6 month follow-up. She was last seen in the clinic on 03/15/23, since then she is doing well. She denied chest pain or dyspnea on exertion. LDL is 46 done 06/2022 and she is taking crestor 40 mg daily.She denies ER visits and hospitalizations since she was last seen. Today reports:Denies chest pain.Denies shortness of breath at rest. Has mild dyspnea on exertion.No orthopnea. No PNDs.Denies heart palpitations.Denies dizziness. Denies syncope or near syncope.No ankle or leg edema.No major bleeding events.No reported side effects from medications. Taking medications as prescribed with no missed doses.Denies snoring, daytime somnolence and AM headache.*Last LDL was 85 done on 04/05/21.Pt takes rosuvastatin 40 mg. Previously:*She had a fall last month with fractured humor *Had Negative stress test on 06/19/22 with Normal LV systolic function. *Had Unremarkable event monitor done in 08/18/21 NSR Note: Past h/o had pos stress in 2018 and Cath with PCI and stent to the LAD. in December 2020, submaximal stress test may need Lexiscan. She is fairly active, lives at home with her ; cares for him and maintains house; no regular exercise. *Had LHC on 12/24/2018 revealing one vessel severe coronary artery disease, with mid 90 % stenosis involving the left anterior descending. Normal left ventricular size and systolic function .Had PCI with good result. *Had bladder surgery 07/09/[address] at [place] [address] Gonzalez.Results from this visit, or from the past:04/07/21:Na 142,K 4.3,Cl 107,Co2 23,Glu 72,Bun 22,Cr 1.43,AST 16,ALT 8. 04/07/21:TC 150,TG 99,HDL 47,LDL 85.01/17/21:TC 137,TG 168,HDL 45,LDL 64.12/31/19: NA 138 ,K 4.1 ,CL 100 , GLU 294, BUN 24 ,CR 1.4,AST 17, ALT 13 , CK 20 12/31/19: TC 166, HDL 42 ,LDL 78, HbA1c , 04/21/19 HgA1c: 9.6 04/21/19 LIPID: TC 157, TR 180, HDL 41, LDL 80 04/21/19 CMP: NA 138, K 4.5, CL 97, CO2 25, GLU 293, BUN 25, CR 1.38, AST 10, ALT 11 12/25/18: CBC HB 12.7, HT 37.1 PT/INR 11-13-2018 PT 10.5, INR 1.0, PTT 293/12/18 EKG: sinus rhythm. P: normal. QRS: normal. ST-T: normal. conclusion: normal ECG. EKG. 12/29/19: Sinus Rhythm; EKG w/o/sig. abnormalities. mu Angiogram 12/24/18 : One vessel severe coronary artery disease, with mid 90 % stenosis involving the left anterior descending. Normal left ventricular size and 01/10/21 TDM Results limited since was not able to achieve target HR. Negative stress test. Normal LV systolic function. Consider another modality if indicated. LVEF 65% 10/23/18 TDM-Positive stress test.Normal LV systolic function. Reversible defect consistent with ischemia in inferior area. Exercise tolerance is below average NUC 04/14/16 : Normal LV function , defects as describe above , No EKG change to suggest ischemia , Exercise tolerance average 10/17/20 ART DUP: Mild PVD 08/09/20 ULISSES: Abnormal ankle-brachial index. Calcified non-compressible lower extremity arterie Had US, Carotid Artery 05/29/17 : Antegrade flow noted in both vertebral arteries. Very mild right internal carotid artery stenosis with less than 15% diameter stenosis. Mild left internal carotid artery stenosis with less than 50% diameter stenosis. No previous study to compare. recommend follow up study in 12 months. Had carotid US done in 05/01/18 showed Antegrade flow noted in both vertebral arteries. Very mild bilateral internal carotid artery stenosis with less than 15% diameter stenosis. Had US, Carotid Artery 05/29/17 : Antegrade flow noted in both vertebral arteries. Very mild right internal carotid artery stenosis with less than 15% diameter stenosis. Mild left internal carotid artery stenosis with less than 50% diameter stenosis. No previous study to compare. recommend follow up study in 12 months. Had 04/24/16 ECHO: LV chamber size is normal. LV wall thickness is normal. There is normal global systolic function and contractility. The estimated LV ejection fraction is 55-60%(normal). Diastolic filling reveals impaired relaxation(grade 1 diastolic dysfunction). There is mild aortic valve sclerosis without significant stenosis. Compared to the prior study dated 09/07/2014 there is no significant change. ULISSES 05/15/17: normal RADHA Zambrano - [facility] 09/24/2023 10:59:41 03/18/2024 text/html 03/18/24CC : Car diac follow up dyspnea on [id number] white women with a past medical history of CAD, s/p LAD stent (12/24/2018) diabetes mellitus, hypertension, dyslipidemia, HELLEN, depression, presents today for 6 month follow-up with labs and ECHO results. She was last seen in the clinic on 09/24/23, since then she is doing well. She denied chest pain or dyspnea on exertion. *Last LDL was 43 done on 10/29/23.Pt takes rosuvastatin 40 mg. She denies ER visits and hospitalizations since she was last seen. Today reports:Denies chest pain.Denies shortness of breath at rest. Has mild dyspnea on exertion.No orthopnea. No PNDs.Denies heart palpitations.Denies dizziness. Denies syncope or near syncope.No ankle or leg edema.No major bleeding events.No reported side effects from medications. Taking medications as prescribed with no missed doses.Denies snoring, daytime somnolence and AM headache.*Last LDL was 43 done on 10/29/23.Pt takes rosuvastatin 40 mg. *Had ECHO on 10/02/23 showed LV chamber size is normal, LV wall thickness is mild to moderately increased.LVEF 55-60%, LV relaxation is impaired,the aortic valve is mildly calcified, there is mild aortic root calcification, there is mild to moderate aortic valve stenosis, there is mild mitral annular calcification, there is mild mitral regurgitation, there is minimal pulmonic regurgitation,sinus bradycardia. 10/30/2023LIPID-CHOL 110 HDL 42 TRIG 173 LDL 43CMP-GL 224 BUN 24 CR 1.69 NA 141 K 4.4 CA 9.1 CK-36 Previously:*She had a fall last month with fractured humor *Had Negative stress test on 06/19/22 with Normal LV systolic function. *Had Unremarkable event monitor done in 08/18/21 NSR Note: Past h/o had pos stress in 2018 and Cath with PCI and stent to the LAD. in December 2020, submaximal stress test may need Lexiscan. She is fairly active, lives at home with her ; cares for him and maintains house; no regular exercise. *Had LHC on 12/24/2018 revealing one vessel severe coronary artery disease, with mid 90 % stenosis involving the left anterior descending. Normal left ventricular size and systolic function .Had PCI with good result. *Had bladder surgery 07/09/[address] [place] [address] Gonzalez.Results from this visit, or from the past:04/07/21:Na 142,K 4.3,Cl 107,Co2 23,Glu 72,Bun 22,Cr 1.43,AST 16,ALT 8. 04/07/21:TC 150,TG 99,HDL 47,LDL 85.01/17/21:TC 137,TG 168,HDL 45,LDL 64.12/31/19: NA 138 ,K 4.1 ,CL 100 , GLU 294, BUN 24 ,CR 1.4,AST 17, ALT 13 , CK 20 12/31/19: TC 166, HDL 42 ,LDL 78, HbA1c , 04/21/19 HgA1c: 9.6 04/21/19 LIPID: TC 157, TR 180, HDL 41, LDL 80 04/21/19 CMP: NA 138, K 4.5, CL 97, CO2 25, GLU 293, BUN 25, CR 1.38, AST 10, ALT 11 12/25/18: CBC HB 12.7, HT 37.1 PT/INR 11-13-2018 PT 10.5, INR 1.0, PTT 293/12/18 EKG: sinus rhythm. P: normal. QRS: normal. ST-T: normal. conclusion: normal ECG. EKG. 12/29/19: Sinus Rhythm; EKG w/o/sig. abnormalities. mu Angiogram 12/24/18 : One vessel severe coronary artery disease, with mid 90 % stenosis involving the left anterior descending. Normal left ventricular size and 01/10/21 TDM Results limited since was not able to achieve target HR. Negative stress test. Normal LV systolic function. Consider another modality if indicated. LVEF 65% 10/23/18 TDM-Positive stress test.Normal LV systolic function. Reversible defect consistent with ischemia in inferior area. Exercise tolerance is below average NUC 04/14/16 : Normal LV function , defects as describe above , No EKG change to suggest ischemia , Exercise tolerance average 10/17/20 ART DUP: Mild PVD 08/09/20 ULISSES: Abnormal ankle-brachial index. Calcified non-compressible lower extremity arterie Had US, Carotid Artery 05/29/17 : Antegrade flow noted in both vertebral arteries. Very mild right internal carotid artery stenosis with less than 15% diameter stenosis. Mild left internal carotid artery stenosis with less than 50% diameter stenosis. No previous study to compare. recommend follow up study in 12 months. Had carotid US done in 05/01/18 showed Antegrade flow noted in both vertebral arteries. Very mild bilateral internal carotid artery stenosis with less than 15% diameter stenosis. Had US, Carotid Artery 05/29/17 : Antegrade flow noted in both vertebral arteries. Very mild right internal carotid artery stenosis with less than 15% diameter stenosis. Mild left internal carotid artery stenosis with less than 50% diameter stenosis. No previous study to compare. recommend follow up study in 12 months. Had 04/24/16 ECHO: LV chamber size is normal. LV wall thickness is normal. There is normal global systolic function and contractility. The estimated LV ejection fraction is 55-60%(normal). Diastolic filling reveals impaired relaxation(grade 1 diastolic dysfunction). There is mild aortic valve sclerosis without significant stenosis. Compared to the prior study dated 09/07/2014 there is no significant change. ULISSES 05/15/17: normal RADHA Zambrano - [facility] 03/18/2024 10:22:08 10/27/2024 text/html 10/27/24CC : Cardiac follow [id number] white women with a past medical history of CAD, s/p LAD stent (12/24/2018) diabetes mellitus, hypertension, dyslipidemia, HELLEN, depression, presents today for follow-up. She was last seen in the clinic on 03/18/24, since then she had a fall in [place] denies ER visits and hospitalizations since she was last seen. Denies chest pain.Denies shortness of breath at rest. Has mild dyspnea on exertion.No orthopnea. No PNDs.Denies heart palpitations.Denies dizziness. Denies syncope or near syncope.No ankle or leg edema.No major bleeding events.No reported side effects from medications. Taking medications as prescribed with no missed doses.Denies snoring, daytime somnolence and AM headache.*Last LDL was 43 done on 11/18/23.Pt takes rosuvastatin 40 mg. Previously:*Had ECHO on 10/02/23 showed LV chamber size is normal, LV wall thickness is mild to moderately increased.LVEF 55-60%, LV relaxation is impaired,the aortic valve is mildly calcified, there is mild aortic root calcification, there is mild to moderate aortic valve stenosis, there is mild mitral annular calcification, there is mild mitral regurgitation, there is minimal pulmonic regurgitation,sinus bradycardia. 10/30/2023LIPID-CHOL 110 HDL 42 TRIG 173 LDL 43CMP-GL 224 BUN 24 CR 1.69 NA 141 K 4.4 CA 9.1 CK-36 *She had a fall last month with fractured humor *Had Negative stress test on 06/19/22 with Normal LV systolic function. *Had Unremarkable event monitor done in 08/18/21 NSR Note: Past h/o had pos stress in 2018 and Cath with PCI and stent to the LAD. in December 2020, submaximal stress test may need Lexiscan. She is fairly active, lives at home with her ; cares for him and maintains house; no regular exercise. *Had LHC on 12/24/2018 revealing one vessel severe coronary artery disease, with mid 90 % stenosis involving the left anterior descending. Normal left ventricular size and systolic function .Had PCI with good result. *Had bladder surgery 07/09/2019 at [place] [address] Gonzalez.Results from this visit, or from the past:04/07/21:Na 142,K 4.3,Cl 107,Co2 23,Glu 72,Bun 22,Cr 1.43,AST 16,ALT 8. 04/07/21:TC 150,TG 99,HDL 47,LDL 85.01/17/21:TC 137,TG 168,HDL 45,LDL 64.12/31/19: NA 138 ,K 4.1 ,CL 100 , GLU 294, BUN 24 ,CR 1.4,AST 17, ALT 13 , CK 20 12/31/19: TC 166, HDL 42 ,LDL 78, HbA1c , 04/21/19 HgA1c: 9.6 04/21/19 LIPID: TC 157, TR 180, HDL 41, LDL 80 04/21/19 CMP: NA 138, K 4.5, CL 97, CO2 25, GLU 293, BUN 25, CR 1.38, AST 10, ALT 11 12/25/18: CBC HB 12.7, HT 37.1 PT/INR 11-13-2018 PT 10.5, INR 1.0, PTT 293/12/18 EKG: sinus rhythm. P: normal. QRS: normal. ST-T: normal. conclusion: normal ECG. EKG. 12/29/19: Sinus Rhythm; EKG w/o/sig. abnormalities. mu Angiogram 12/24/18 : One vessel severe coronary artery disease, with mid 90 % stenosis involving the left anterior descending. Normal left ventricular size and 01/10/21 TDM Results limited since was not able to achieve target HR. Negative stress test. Normal LV systolic function. Consider another modality if indicated. LVEF 65% 10/23/18 TDM-Positive stress test.Normal LV systolic function. Reversible defect consistent with ischemia in inferior area. Exercise tolerance is below average NUC 04/14/16 : Normal LV function , defects as describe above , No EKG change to suggest ischemia , Exercise tolerance average 10/17/20 ART DUP: Mild PVD 08/09/20 ULISSES: Abnormal ankle-brachial index. Calcified non-compressible lower extremity arterie Had US, Carotid Artery 05/29/17 : Antegrade flow noted in both vertebral arteries. Very mild right internal carotid artery stenosis with less than 15% diameter stenosis. Mild left internal carotid artery stenosis with less than 50% diameter stenosis. No previous study to compare. recommend follow up study in 12 months. Had carotid US done in 05/01/18 showed Antegrade flow noted in both vertebral arteries. Very mild bilateral internal carotid artery stenosis with less than 15% diameter stenosis. Had US, Carotid Artery 05/29/17 : Antegrade flow noted in both vertebral arteries. Very mild right internal carotid artery stenosis with less than 15% diameter stenosis. Mild left internal carotid artery stenosis with less than 50% diameter stenosis. No previous study to compare. recommend follow up study in 12 months. Had 04/24/16 ECHO: LV chamber size is normal. LV wall thickness is normal. There is normal global systolic function and contractility. The estimated LV ejection fraction is 55-60%(normal). Diastolic filling reveals impaired relaxation(grade 1 diastolic dysfunction). There is mild aortic valve sclerosis without significant stenosis. Compared to the prior study dated 09/07/2014 there is no significant change. ULISSES 05/15/17: normal Meet aGrrett MD [address] [place], [address], [place] [facility] 10/27/2024 09:24:31 01/07/2025 text/html 01/07/25CC: Card iac clearance before [id number] white women with a past medical history of CAD, s/p LAD stent (12/24/2018) diabetes mellitus, hypertension, dyslipidemia, HELLEN, depression, presents today for cardiac clearance before hysterectomy with abnormal cardiac ECHO. She was last seen in the clinic on 10/27/24, since then she had echo with now severe ASShe denies ER visits and hospitalizations since she was last seen. Today reports:no ccDenies chest pain.Denies shortness of breath at rest. Has mild dyspnea on exertion.No orthopnea. No PNDs.Denies heart palpitations.Denies dizziness. Denies syncope or near syncope.No ankle or leg edema.No major bleeding events.No reported side effects from medications. Taking medications as prescribed with no missed doses.Denies snoring, daytime somnolence and AM headache.*Last LDL was 43 done on 10/30/23.Pt takes rosuvastatin 40 mg. Previously:*Had ECHO on 10/02/23 showed LV chamber size is normal, LV wall thickness is mild to moderately increased.LVEF 55-60%, LV relaxation is impaired,the aortic valve is mildly calcified, there is mild aortic root calcification, there is mild to moderate aortic valve stenosis, there is mild mitral annular calcification, there is mild mitral regurgitation, there is minimal pulmonic regurgitation,sinus bradycardia. *Had Negative stress test on 06/19/22 with Normal LV systolic function. *Had Unremarkable event monitor done in 08/18/21 NSR Note: Past h/o had pos stress in 2018 and Cath with PCI and stent to the LAD. in December 2020, submaximal stress test may need Lexiscan. *Had LHC on 12/24/2018 revealing one vessel severe coronary artery disease, with mid 90 % stenosis involving the left anterior descending. Normal left ventricular size and systolic function .Had PCI with good result. *Had bladder surgery 07/09/[address] at [place] [address] Gonzalez.Results from this visit, or from the past:04/07/21:Na 142,K 4.3,Cl 107,Co2 23,Glu 72,Bun 22,Cr 1.43,AST 16,ALT 8. 04/07/21:TC 150,TG 99,HDL 47,LDL 85.01/17/21:TC 137,TG 168,HDL 45,LDL 64.12/31/19: NA 138 ,K 4.1 ,CL 100 , GLU 294, BUN 24 ,CR 1.4,AST 17, ALT 13 , CK 20 12/31/19: TC 166, HDL 42 ,LDL 78, HbA1c , 04/21/19 HgA1c: 9.6 04/21/19 LIPID: TC 157, TR 180, HDL 41, LDL 80 04/21/19 CMP: NA 138, K 4.5, CL 97, CO2 25, GLU 293, BUN 25, CR 1.38, AST 10, ALT 11 12/25/18: CBC HB 12.7, HT 37.1 PT/INR 11-13-2018 PT 10.5, INR 1.0, PTT 293/12/18 EKG: sinus rhythm. P: normal. QRS: normal. ST-T: normal. conclusion: normal ECG. EKG. 12/29/19: Sinus Rhythm; EKG w/o/sig. abnormalities. mu Angiogram 12/24/18 : One vessel severe coronary artery disease, with mid 90 % stenosis involving the left anterior descending. Normal left ventricular size and 01/10/21 TDM Results limited since was not able to achieve target HR. Negative stress test. Normal LV systolic function. Consider another modality if indicated. LVEF 65% 10/23/18 TDM-Positive stress test.Normal LV systolic function. Reversible defect consistent with ischemia in inferior area. Exercise tolerance is below average NUC 04/14/16 : Normal LV function , defects as describe above , No EKG change to suggest ischemia , Exercise tolerance average 10/17/20 ART DUP: Mild PVD 08/09/20 ULISSES: Abnormal ankle-brachial index. Calcified non-compressible lower extremity arterie Had US, Carotid Artery 05/29/17 : Antegrade flow noted in both vertebral arteries. Very mild right internal carotid artery stenosis with less than 15% diameter stenosis. Mild left internal carotid artery stenosis with less than 50% diameter stenosis. No previous study to compare. recommend follow up study in 12 months. Had carotid US done in 05/01/18 showed Antegrade flow noted in both vertebral arteries. Very mild bilateral internal carotid artery stenosis with less than 15% diameter stenosis. Had US, Carotid Artery 05/29/17 : Antegrade flow noted in both vertebral arteries. Very mild right internal carotid artery stenosis with less than 15% diameter stenosis. Mild left internal carotid artery stenosis with less than 50% diameter stenosis. No previous study to compare. recommend follow up study in 12 months. Had 04/24/16 ECHO: LV chamber size is normal. LV wall thickness is normal. There is normal global systolic function and contractility. The estimated LV ejection fraction is 55-60%(normal). Diastolic filling reveals impaired relaxation(grade 1 diastolic dysfunction). There is mild aortic valve sclerosis without significant stenosis. Compared to the prior study dated 09/07/2014 there is no significant change. ULISSES 05/15/17: normal Meet Garrett MD [address] [place], [address], [facility] 01/07/2025 17:17:10 03/02/2025 text/html 03/02/25CC : [facility] follow [id number] white women with a past medical history of CAD, s/p LAD stent (12/24/2018) diabetes mellitus, hypertension, dyslipidemia, HELLEN, depression is here for 6 month follow up with ECHO and Labs results. She was last seen in the clinic on 01/07/25, since then Mauricio denies ER visits and hospitalizations since she was last seen. Today reports:Denies chest pain.Denies shortness of breath at rest. Has mild dyspnea on exertion.No orthopnea. No PNDs.Denies heart palpitations.Denies dizziness. Denies syncope or near syncope.No ankle or leg edema.No major bleeding events.No reported side effects from medications. Taking medications as prescribed with no missed doses.Denies snoring, daytime somnolence and AM headache.*Last LDL was 43 done on 01/31/25.Pt takes rosuvastatin 40 mg. *Had ECHO on 02/19/25 showed The cavity size was normal.Wall thickness was increased in a pattern of mild LVH. global systolic function is normal.The estimated ejection fraction is 60-65%.For [facility] reporting:the lft vent ejection fraction is 65%,Wall motion is normal; there are no regional wall motion abnormal . Aortic valve: Tri leaflet .There calcification.mobility is restricted.There was severe stenosis, Mild reg.The mean systolic gradient is 20mm Hg.The peak systolic gradient is 40mm Hg.The LVOT to aortic valve VTI rati9 is 0.28. The ratio pf LVOT to aortic valve peak velocity is 0.31. Aorta:The arotia was normal.Mitral valve:The annulus is mildly calcified.Mild regurgitation. Lft atrium:The atrium is normal in size.No evidence of thrombus in the atrium or atrial appendage.Appendage:Th e appendage is normal size.Atrial septum: The septum is normal.Pulmonary veins:Well visualized,appeared normal.Right ventricul :The cavity size is normal,Systolic function is normal.Pulmonic valve:structurally normal valve,No significant regurgitation.Tricuspi d valve:structurally normal valve.Mild regurgitation.Right atrium:The atrium was normal is size.Systemic veins:Superior vena cava:The SVC is normal.Pericardium:The re is pericardial effusion. 01/31/25BMP-GL 64 BUN 31 CR 1.85 NA 144 K 4.5 CA 9.2PJOF1U-5.5LIPID-CHO L 113 HDL 81 TRIG 100 LDL 43 Previously:*Had Negative stress test on 06/19/22 with Normal LV systolic function. *Had Unremarkable event monitor done in 08/18/21 NSR Note: Past h/o had pos stress in 2018 and Cath with PCI and stent to the LAD. in December 2020, submaximal stress test may need Lexiscan. *Had LHC on 12/24/2018 revealing one vessel severe coronary artery disease, with mid 90 % stenosis involving the left anterior descending. Normal left ventricular size and systolic function .Had PCI with good result. *Had bladder surgery 07/09/[address] [place] [address] Gonzalez.Results from this visit, or from the past:04/07/21:Na 142,K 4.3,Cl 107,Co2 23,Glu 72,Bun 22,Cr 1.43,AST 16,ALT 8. 04/07/21:TC 150,TG 99,HDL 47,LDL 85.01/17/21:TC 137,TG 168,HDL 45,LDL 64.12/31/19: NA 138 ,K 4.1 ,CL 100 , GLU 294, BUN 24 ,CR 1.4,AST 17, ALT 13 , CK 20 12/31/19: TC 166, HDL 42 ,LDL 78, HbA1c , 04/21/19 HgA1c: 9.6 04/21/19 LIPID: TC 157, TR 180, HDL 41, LDL 80 04/21/19 CMP: NA 138, K 4.5, CL 97, CO2 25, GLU 293, BUN 25, CR 1.38, AST 10, ALT 11 12/25/18: CBC HB 12.7, HT 37.1 PT/INR 11-13-2018 PT 10.5, INR 1.0, PTT 293/12/18 EKG: sinus rhythm. P: normal. QRS: normal. ST-T: normal. conclusion: normal ECG. EKG. 12/29/19: Sinus Rhythm; EKG w/o/sig. abnormalities. mu Angiogram 12/24/18 : One vessel severe coronary artery disease, with mid 90 % stenosis involving the left anterior descending. Normal left ventricular size and 01/10/21 TDM Results limited since was not able to achieve target HR. Negative stress test. Normal LV systolic function. Consider another modality if indicated. LVEF 65% 10/23/18 TDM-Positive stress test.Normal LV systolic function. Reversible defect consistent with ischemia in inferior area. Exercise tolerance is below average NUC 04/14/16 : Normal LV function , defects as describe above , No EKG change to suggest ischemia , Exercise tolerance average 10/17/20 ART DUP: Mild PVD 08/09/20 ULISSES: Abnormal ankle-brachial index. Calcified non-compressible lower extremity arterie Had US, Carotid Artery 05/29/17 : Antegrade flow noted in both vertebral arteries. Very mild right internal carotid artery stenosis with less than 15% diameter stenosis. Mild left internal carotid artery stenosis with less than 50% diameter stenosis. No previous study to compare. recommend follow up study in 12 months. Had carotid US done in 05/01/18 showed Antegrade flow noted in both vertebral arteries. Very mild bilateral internal carotid artery stenosis with less than 15% diameter stenosis. Had US, Carotid Artery 05/29/17 : Antegrade flow noted in both vertebral arteries. Very mild right internal carotid artery stenosis with less than 15% diameter stenosis. Mild left internal carotid artery stenosis with less than 50% diameter stenosis. No previous study to compare. recommend follow up study in 12 months. Had 04/24/16 ECHO: LV chamber size is normal. LV wall thickness is normal. There is normal global systolic function and contractility. The estimated LV ejection fraction is 55-60%(normal). Diastolic filling reveals impaired relaxation(grade 1 diastolic dysfunction). There is mild aortic valve sclerosis without significant stenosis. Compared to the prior study dated 09/07/2014 there is no significant change. ULISSES 05/15/17: normal Meet Garrett MD [address] [place], [address], [facility] 03/02/2025 12:01:40 OBGyn Episode No OBEpisode recorded.
--- OUTSIDE RECORDS SUMMARY | 2025-03-30 13:48 | XMS_ITS | Clinical Summary ---
Author Organization [facility] Address [address] [place] [address] Care Team Providers Care Instructional Systems Specialist Name Role Phone Winston Guevara MD Primary Care Provider [phone] Allergies Active Allergy Reactions Criticality Noted Date Comments [place] [employer] Derivatives Other (See comments) Low Nose [...] Hyperlipidemia 02/26/2016 Obstructive sleep apnea syndrome 02/26/2016 Encounters Date Type Department Care Team Description 02/18/2025 Telephone [facility] Obstetrics and Gynecology [facility] 13th [place] [address] Smith, Maria E surgery cancellation 02/15/2025 Telephone [facility] Obstetrics and Gynecology [address] [facility] 13th [place] [address] Smith, Maria E cancel surgery? 01/27/2025 Telephone [facility] Obstetrics and [facility]cology [facility] [address]th [place] [address] Smith, Maria E surgery rescheduling 01/12/2025 Telephone [facility] Obstetrics and Gynecology [address] [facility] 13th [place] [address] [place] [address] Smith, Maria E rescheduling surgery 01/05/2025 Results Follow-Up [facility] Obstetrics and Gynecology [address] [facility] 7th [address] [place] [address] Kiran Knight MD Urine culture Urine, in and out catheter 01/01/2025 1:12 PM CRANE HOIST OR LIFT OPERATOR - 01/01/2025 11:59 PM CRANE HOIST OR LIFT OPERATOR Hospital Encounter [facility] [address] [place] [address] Frequent UTI; Dysuria Discharge Disposition: Discharge to home or self care 01/01/2025 12:00 PM CRANE HOIST OR LIFT OPERATOR Procedure visit [facility] Obstetrics and Gynecology [address] [facility] [address] [place] [address] Kiran Knight MD Dysuria (Primary Dx); Frequent UTI; Vaginal atrophy; Complication of implanted vaginal mesh, initial encounter 12/31/2024 10:12 AM CRANE HOIST OR LIFT OPERATOR - 12/31/2024 11:59 PM CRANE HOIST OR LIFT OPERATOR Hospital Encounter [facility] Diagnostic [facility] [address] [facility] [address] [place] [address] Moderate aortic stenosis Discharge Disposition: Discharge to home or self care 12/22/2024 11:59 PM CRANE HOIST OR LIFT OPERATOR Anesthesia Event [facility] [address] [place] [address] Parvin Gomez NP from Last 3 Months Immunizations Immunization Administration Dates Next Due Influenza, Quad, Adjuvantate d, Intramuscular 09/23/2023 Influenza, Quadrivalent, Hig h Dose, Preservative Free, Intrr 08/18/2022,10/19/2021,07/11/2020,07/11 Influenza, Quadrivalent, Spl it, Preservative Free, Intramuscular 10/09/2017 Influenza, Trivalent, High D ose, Split, Preservative Free, Intramuscular 07/14/2024,09/10/2019,11/21/2017,08/06 RSV Vaccine, Pref, Recombina nt, Subunit, Adjuvanted, PF, IM (Arexvy) 09/23/2023 Sars-CoV-2, Unspecified 04/18/2021 Tdap 03/27/2020,09/30/2014 ZOSTER Recombinant 12/30/2020,10/25/2020 Surgical History Surgery Date Site/Laterality Comments HIP FRACTURE SURGERY 12/27/2023 - 01/26/2024 Right s/p fall/slip walking out of bathroom CYST REMOVAL Multiple Benign cysts-- neck X 2, Right groin CARDIAC STENT PLACEMENT 12/24/2018 Stent X 1 to LAD INCONTINENCE SURGERY 10/28/2021 - 10/27/2022 COLONOSCOPY Multiple Medical History Medical History Date Comments Hypertension Dxd ~1970 Anemia Diabetes mellitus (HCC) Dxd ~197 0 Chronic kidney disease Stage 3b CKD Sleep apnea +BiPAP Mental disorder History of recurrent UTIs Last -- treated with Macrobid CAD (coronary artery disease) s/ p stent to LAD 12/24/2018 Hyperlipidemia Family History Medical History Relation Name Comments Diabetes Brother Depression Father Diabetes Father Mental illness Father Arthritis Maternal Grandmother Arthritis Mother Anesthesia problems Neg Hx Relation Name Status Comments Brother Father Maternal Grandmother Mother Social History Tobacco Use Types Packs/Day [...] on file Legal Sex Female 1:10 AM CRANE HOIST OR LIFT OPERATOR Gender Identity Not on file Sexual Orientation Not on file Occupation Industry Job Start Date Job End Date [employer] Not on file Not on file Not on file Obstetrics History Para Term AB IAB SAB Ectopic Multiple Livin g Live Births 0 0 0 0 0 0 0 0 0 0 0 Last Filed Vital Signs Vital Sign Reading Time Taken Comments Blood Pressure 113/73 01/01/2025 12:19 PM CRANE HOIST OR LIFT OPERATOR Pulse 69 12/22/2024 1:35 PM CRANE HOIST OR LIFT OPERATOR Temperature 36.7 C (98 F) 11/19/2024 8:58 AM CRANE HOIST OR LIFT OPERATOR Respiratory Rate 16 12/22/2024 1:35 PM CRANE HOIST OR LIFT OPERATOR Oxygen Saturation 100% 12/22/2024 1:35 PM CRANE HOIST OR LIFT OPERATOR Inhaled Oxygen Concentration - - Weight 72.6 kg (160 lb) 01/01/2025 12:19 PM CRANE HOIST OR LIFT OPERATOR Height 157.5 cm (5' 2) 01/01/2025 12:19 PM CRANE HOIST OR LIFT OPERATOR Body Mass Index 29.26 01/01/2025 12:19 PM CRANE HOIST OR LIFT OPERATOR Plan of Treatment Health Maintenance Due Date Last Done Comments Albumin Creatinine Ratio, Urine 1945 Depression Screening 1945 Hepatitis C Screening 1945 Osteoporosis Screening-Bone Density Scan 1945 Dilated Eye Exam 1945 Foot Exam 1945 Hepatitis B Screening 1965 Pneumococcal vaccine 65+ (1 of 2 - PCV) 1966 Well Visit 65+ 2012 Lipid Panel 12/30/2020 12/31/2019 Covid-19 Vaccine (2023-2 5 season) 2025 07/14/2024, 09/23/2023, 08/18/2022, Additional history exists Hemoglobin A1C 06/21/2025 12/22/2024 Fall Risk Assessment 12/22/2025 12/22/2024 eGFR 12/22/2025 12/22/2024 DTaP/Tdap/Td Vaccine (3 - Td or Tdap) 03/27/2030 03/27/2020, 09/30/2014 Zoster Vaccine Completed 12/30/2020, 10/25/2020 Influenza Vaccine Completed 07/14/2024, , 08/18/2022, Additional history exists Medical Devices Implanted Type Area [employer] Device Identifier Shelf Expiration Date Model / Serial / Lot Stent Stent Heart Procedures Procedure Name Priority Date/Time Associated Diagnosis Comments URINE CULTURE Routine 01/01/2025 1:12 PM CRANE HOIST OR LIFT OPERATOR Frequent UTI Dysuria TRANSTHORACIC ECHO (TTE) COMPLETE W DOPPLER/CF W CONTRAST Routine 12/31/2024 11:47 AM CRANE HOIST OR LIFT OPERATOR Moderate aortic stenosis EGFR Timed 12/22/2024 4:09 PM CRANE HOIST OR LIFT OPERATOR Encounter for preoperative assessment POCT HEMOGLOBIN A1C Routine 12/22/2024 2 :53 PM CRANE HOIST OR LIFT OPERATOR LIPID PANEL Routine 12/31/2019 11:28 AM CRANE HOIST OR LIFT OPERATOR from Last 3 Months or Most Recently Relevant to Health Maintenance Results * Urine culture Urine, in and out catheter (01/01/2025 1:12 PM CRANE HOIST OR LIFT OPERATOR) Report Final Report: No growth Urine, in and out catheter 01/01/2025 1:12 PM CRANE HOIST OR LIFT OPERATOR 01/01/2025 5:01 PM CRANE HOIST OR LIFT OPERATOR Narrative [facility] - 01/02/2025 5:59 PM CRANE HOIST OR LIFT OPERATOR Testing performed by [facility] ([phone]) us Kiran Knight MD LAB MICROBIOLOGY - GENERAL ORDERABLES Final Result [facility] Department [place] [address] * TRANSTHORACIC ECHO (TTE) COMPLETE W DOPPLER/CF W CONTRAST (12/31/2024 11:47 AM CRANE HOIST OR LIFT OPERATOR) Anatomical Region Laterality Modality Ultrasound 12/31/2024 10:4 2 AM CRANE HOIST OR LIFT OPERATOR Narrative 01/01/2025 3:59 PM CRANE HOIST OR LIFT OPERATOR [facility] [place] [address] Transthoracic Echocardiographic Report Patient Name: IGOR KENNEY ANNE : 1945 (79y 1m) Gender: F Study Date: 12/31/2024 10:42:33 AM Ht(Inch): 62 Wt(Lb): 160.94 BSA: 1.79 Senior [employer] Net Developer: GABRIELLA Ohara Location: [facility] Order Provider: JAMES DOLL Heart Rate: 68 BMI: 29.43 BP: 121 / 46 Quality: The study images were of technically adequate quality. Ref Provider: JAMES DOLL Fellow: Michael Salazar MD - PROCEDURES: Echocardiographic Report: ([id number], [id number]) Transthoracic complete echo with strain imaging and [...] By: Esequiel Dwyer M.D. 01/01/2025 3:59:47 PM CRANE HOIST OR LIFT OPERATOR Electronically Signed By: Esequiel Dwyer M.D. 01/01/2025 3:59:47 PM CRANE HOIST OR LIFT OPERATOR Procedure Note Esequiel Dwyer MD - 01/01/2025 [facility] Cardiac [facility] [place] [address] Transthoracic Echocardiographic Report Patient Name: IGOR KENNEY ANNE : 1945 (79y 1m) Gender: F Study Date: 12/31/2024 10:42:33 AM Ht(Inch): 62 Wt(Lb): 160.94 BSA: 1.79 Senior [employer] Net Developer: GABRIELLA Ohara Location: [facility] Order Provider:JAMES DOLL Heart Rate: 68 BMI: 29.43 BP: 121 / 46 Quality: The study images were oftechnically adequate quality. Ref Provider: JAMES DOLL Fellow: Michael Rosales MD - PROCEDURES: Echocardiographic Report: ([id number], [id number]) Transthoracic complete echo withstrain imaging and contrast, [...] [ 1.71 - 5.00 ] MV Decel [id number] msec [ 104.00 - 258.00 ] RA [...] By: Esequiel Dwyer M.D. 01/01/2025 3:59:47 PM CRANE HOIST OR LIFT OPERATOR Electronically Signed By: Esequiel Dwyer M.D. 01/01/2025 3:59:47 PM CRANE HOIST OR LIFT OPERATOR James Doll MD CV ECHO PROCED URES Final Result * (ABNORMAL) eGFR (12/22/2024 4:09 PM CRANE HOIST OR LIFT OPERATOR) eGFR 31(L) >=60 mL/min/1. 73 m2 Comment: [...] Inclusion of Race in Diagnosing Kidney Disease, BARRERA 2020). The CKD-EPI equation should not be used for patients with unstable renal function and has not been validated in children and those over 70. Current interpretive data was last reviewed 2021. Blood 12/22/2024 4:09 PM CRANE HOIST OR LIFT OPERATOR 12/22/2024 5:08 PM CRANE HOIST OR LIFT OPERATOR us Parvin Gomez NP LAB BLOOD ORDERABL ES Final Result Performing Organization Address [facility] [place] [address] * (ABNORMAL) POCT hemoglobin A1c (12/22/2024 2:53 PM CRANE HOIST OR LIFT OPERATOR) Hgb A1C, POC 6.6(H) 4.0 - 5.6 % Est Average Gluc POC 143 mg/dL [facility] Comment: The ADA recommends reporting an estimated Average Glucose (eAG) with all Hemoglobin A1c results using the equation derived from a study of 507 normal and diabetic adults. Minority populations were underrepresented and children were not included. (Diabetes Care 31:9482-9045, 2008). The eAG is not equivalent to a fasting glucose. Blood 12/22/2024 2:53 PM CRANE HOIST OR LIFT OPERATOR 12/22/2024 2:53 PM CRANE HOIST OR LIFT OPERATOR us Notinfile Unknown POINT OF CARE TEST ORDERABLES Final Result Performing Organization Address [facility] de Phone Number [facility] [place] [address] * (ABNORMAL) Lipid panel (12/31/2019 11:28 AM CRANE HOIST OR LIFT OPERATOR) Triglycerides 231(H) 0 - 149 mg/dL [facility] Comment: National Lipid Association/NCEP Guidelines: Normal < 150 mg/dL Borderline high 150-199 mg/dL High 200-499 mg/dL Very High >=500 mg/dL Cholesterol 166 0 - 199 mg/dL [facility] Comment: National Lipid Association/NCEP Guidelines: Desirable < 200 mg/dL Borderline high: 200-239 mg/dL High Risk: >=240 mg/dL HDL Cholesterol 42 mg/dL [facility] Comment: Reference Ranges: Males: >=40 mg/dL Females: >=50 mg/dL LDL Cholesterol, Calc 78 0 - 129 mg/dL [facility] Comment: National Lipid Association/NCEP Guidelines: Optimal < 100 mg/dL Near Optimal 100-129 mg/dL Borderline high 130-159 mg/dL High >=160 mg/dL Cholesterol/HDL Ratio 4.0 [facility] Comment: Optimal < 3.5:1 High > 5:1 12/31/2019 11:2 8 AM CRANE HOIST OR LIFT OPERATOR 12/31/2019 11:39 AM CRANE HOIST OR LIFT OPERATOR Narrative Resulting Agency Comment CLI Miguelina ROY LAB BLOOD ORDERABLES [facility] l Result Performing Organization Address City/State/[facility] de Phone Number [place] [id number] [address] [phone] from Last 3 Months or Most Recently Relevant to Health Maintenance Insurance [facility] [employer] MEDIC[employer] ADVANTAGE [employer] MEDICARE ADVANTAGE Care Teams Instructional Systems Specialist Relationship Specialty Start Date End Date Winston Guevara MD [address] [address] PCP - General Family Medicine 11/27/24
[2025-03-30 14:03] LABS: Hematocrit 36.4 % (37.0-47.0); Hemoglobin 12.1 g/dL (12.0-15.0); Immature Platelet Fraction Pct 2.9 % (0.9-11.2); Mean Corpuscular HGB Conc 33.2 g/dl (32-36); Mean Corpuscular Hemoglobin 32.3 pg (26-34); Mean Corpuscular Volume 97.1 fl (80-100); Mean Platelet Volume 10.4 fl (7.4-10.4); Platelet Count Result 113 k/mm3 (150-375); Red Blood Count 3.75 M/mm3 (4.2-5.4); Red Cell Distribution Width 14.6 % (11.5-14.5); White Blood Count 5.4 K/mm3 (4.5-10.0)
[2025-03-30 14:04] LABS: Blood Urea Nitrogen 31 mg/dL (8-26); Carbon Dioxide 23 mmol/L (22-30); Chloride 106 mmol/L (98-109); Estimated Glomerular Filt Rate 22; Glucose 86 mg/dL (70-105); Ionized Calcium (POC) 1.19 mmol/L (1.11-1.31); Potassium 4.6 mmol/L (3.5-4.9); Sodium 141 mmol/L (138-146)
== END 2025-03-30 13:41 | disposition home or self-care (01) ==
LOC: ANHLAB 13:41
PROVIDERS: PCP Nurse Practitioner Family; Visit Provider Internal Medicine Hematology & Oncology
DX: D64.9 Anemia, unspecified (principal)
CPT/HCPCS: 36415; 80047; 85027; 85055

== ENCOUNTER 2025-10-05 08:06 | Outpatient (CLI) | payer MEDICARE, SELFPAY ==
[2025-10-05 08:38] LABS: Hematocrit 41.4 % (37.0-47.0); Hemoglobin 13.9 g/dL (12.0-15.0); Immature Platelet Fraction Pct 2.3 % (0.9-11.2); Mean Corpuscular HGB Conc 33.6 g/dl (32-36); Mean Corpuscular Hemoglobin 31.6 pg (26-34); Mean Corpuscular Volume 94.1 fl (80-100); Platelet Count Result 101 k/mm3 (150-375); Red Blood Count 4.40 M/mm3 (4.2-5.4); White Blood Count 6.2 K/mm3 (4.5-10.0)
[2025-10-05 08:40] LABS: Blood Urea Nitrogen 41 mg/dL (8-26); Carbon Dioxide 24 mmol/L (22-30); Chloride 105 mmol/L (98-109); Estimated Glomerular Filt Rate 16; Glucose 271 mg/dL (70-105); Ionized Calcium (POC) 1.24 mmol/L (1.11-1.31); Potassium 4.6 mmol/L (3.5-4.9); Sodium 139 mmol/L (138-146)
== END 2025-10-05 08:07 | disposition home or self-care (01) ==
LOC: ANHLAB 08:06
PROVIDERS: PCP Nurse Practitioner Family; Visit Provider Internal Medicine Hematology & Oncology
DX: D64.9 Anemia, unspecified (principal)
CPT/HCPCS: 36415; 80047; 85027; 85055